=== PATIENT | female | born 1940 | race Caucasian/White ===

== ENCOUNTER 2016-06-20 22:22 | Inpatient (IN) | payer MEDICARE, BC ==
[2016-06-20] MEDS ORDERED: ONDANSETRON HCL INJ/PF 4 MG/2 ML SDV IV ONE (23:46)
[2016-06-20] MEDS ORDERED: NORMAL SALINE 500 ML IV ONE (23:47)
[2016-06-21 00:50] LABS: HEMATOCRIT 33.4 % (36.0-47.0); HEMOGLOBIN 10.5 g/dL (12.0-15.5); HGB HCT DIFFERENCE -1.9; MEAN CORPUSCULAR HEMOGLOBIN 21.5 pg (27.0-33.4); MEAN CORPUSCULAR HGB CONC 31.5 g/dL (32.0-36.0); MEAN CORPUSCULAR VOLUME 68 fl (80-97); RED BLOOD COUNT 4.88 10^6/uL (3.72-5.28); WHITE BLOOD COUNT 6.2 10^3/uL (4.0-10.5)
[2016-06-21 01:05] LABS: ALANINE AMINOTRANSFERASE 99 U/L (9-52); ALBUMIN 4.2 g/dL (3.5-5.0); ALKALINE PHOSPHATASE 86 U/L (38-126); ASPARTATE AMINO TRANSFERASE 194 U/L (14-36); BILIRUBIN,TOTAL 2.6 mg/dL (0.2-1.3); BLOOD UREA NITROGEN 21 mg/dL (7-20); CALCIUM 9.6 mg/dL (8.4-10.2); CARBON DIOXIDE 27 mmol/L (22-30); CHLORIDE 74 mmol/L (98-107); CREATININE RESULT 1.21 mg/dL (0.52-1.25); GLUCOSE 102 mg/dL (75-110); LIPASE 1121.6 U/L (23-300); POTASSIUM 4.1 mmol/L (3.6-5.0); TOTAL PROTEIN 6.3 g/dL (6.3-8.2)
[2016-06-21 01:07] LABS: ANION GAP 12 (5-19)
[2016-06-21 01:10] LABS: SODIUM 112.7 mmol/L (137-145)
[2016-06-21 01:11] LABS: BASOPHILS % (MANUAL) 0 % (0-2); EOSINOPHILS % (MANUAL) 4 % (0-6); LYMPHOCYTES % (MANUAL) 9 % (13-45); TOTAL CELLS COUNTED 100
[2016-06-21 01:14] LABS: ANISOCYTOSIS 2+; MICROCYTOSIS 2+; OVALOCYTES 1+; POLYCHROMASIA SLIGHT; TARGET CELLS 1+; TOXIC GRANULATION SLIGHT
[2016-06-21 01:15] LABS: HYPOCHROMASIA 2+
[2016-06-21 01:23] LABS: APPEARANCE,URINE CLEAR; BILIRUBIN,URINE NEGATIVE (NEGATIVE); GLUCOSE, URINE NEGATIVE (NEGATIVE); KETONES,URINE TRACE mg/dL (NEGATIVE); LEUKOCYTE ESTERASE,URINE LARGE (NEGATIVE); NITRITE,URINE NEGATIVE (NEGATIVE); PROTEIN,URINE 30 mg/dL (NEGATIVE); URINE SPECIFIC GRAVITY 1.009; UROBILINOGEN,URINE NEGATIVE mg/dL (<2.0)
[2016-06-21 01:52] LABS: URINE CREATININE 54.1 mg/dL (15-278)
[2016-06-21] MEDS ORDERED: NORMAL SALINE 1000 ML 1,000 ML IV ONE (02:35)
--- NOTE | 2016-06-21 02:38 | ER Document Report ---
ED General - General Chief Complaint: Nausea/Vomiting Stated Complaint: VOMITING Notes: Patient is 76-year-old female presents with complaints of feeling weak for almost 2 weeks. She is also developed some nausea and vomiting today. No abdominal discomfort. No fevers. Family says that she has been intimately confused as well. She did have hyponatremia back in January and presents with similar symptoms. Family says that she is on accommodation blood pressure medication as well as a medication for her history of gastric tumors. She is on no other chemotherapy. She has a history of cholecystectomy. She does not drink alcohol. No other complaints at this time. TRAVEL OUTSIDE OF THE [place] IN LAST 30 DAYS: No - Related Data Allergies/Adverse Reactions: Sulfa (Sulfonamide Antibiotics) Allergy (Verified 07/19/15 21:45) Past Medical History - Social History Smoking Status: Current Every Day Smoker Frequency of alcohol use: None Drug Abuse: None Family History: Reviewed & Not Pertinent Patient has suicidal ideation: No Patient has homicidal ideation: No - Past Medical History Cardiac Medical History: Reports: Hx Hypertension Pulmonary Medical History: Reports: Hx COPD Neurological Medical History: Reports: Hx Cerebrovascular Accident. Denies: Hx Seizures Renal/ Medical History: Denies: Hx Peritoneal Dialysis Musculoskeltal Medical History: Reports Hx Arthritis Psychiatric Medical History: Reports: Hx Depression Past Surgical History: Reports: Hx Abdominal Surgery, Hx Cholecystectomy, Hx Hysterectomy - Immunizations Immunizations up to date: Yes Hx Diphtheria, Pertussis, Tetanus Vaccination: Yes Hx Pneumococcal Vaccination: 03/20/14 Review of Systems - Review of Systems Notes: My Normal Review Basic REVIEW OF SYSTEMS: CONSTITUTIONAL : Denies fever, chills, or sweats. Denies recent illness. CARDIOVASCULAR: Denies chest pain. RESPIRATORY: Denies cough, cold, or chest congestion. Denies shortness of breath, difficulty breathing, or wheezing. GASTROINTESTINAL: Denies abdominal pain. Denies nausea, vomiting, or diarrhea. Denies constipation. Last BM: GENITOURINARY: Denies difficulty urinating, painful urination, burning, frequency, or blood in urine. MUSCULOSKELETAL: Denies neck or back pain or joint pain or swelling. SKIN: Denies rash or skin lesions. NEUROLOGICAL: Intermittent confusion. Denies headache. Denies weakness or paralysis or loss of use of either side. Denies problems with gait or speech. Denies sensory or motor loss. ALL OTHER SYSTEMS REVIEWED AND NEGATIVE. Physical Exam - Vital signs Vitals: Temp Pulse BP Pulse Ox 97.8 F 74 161/75 H 98 06/20/16 23:00 06/20/16 23:00 06/20/16 23:00 06/20/16 23:00 - Notes Notes: General Appearance: Well nourished, alert but sleepy, cooperative, no acute distress, no obvious discomfort. Well-appearing. Vitals: reviewed, See vital signs table. Head: no swelling or tenderness to the head Eyes: PERRL, EOMI, Conjuctiva clear Mouth: No decreasd moisture Neck: Supple, no neck tenderness, No thyromegaly Lungs: No wheezing, No rales, No rhonci, No accessory muscle use, good air exchange bilaterally. Heart: Normal rate, Regular rythm, No murmur, no rub Abdomen: Normal BS, soft, No rigidity, No abdominal tenderness, No guarding, no rebound, no abdominal masses, no organomegaly Extremities: strength 5/5 in all extremities, good pulses in all extremities, no swelling or tenderness in the extremities, no edema. Skin: warm, dry, appropriate color, no rash Neuro: speech clear, oriented x 3, normal affect, responds appropriately to questions. Course - Vital Signs Vital signs: Temp Pulse Resp BP Pulse Ox 97.8 F 74 14 161/75 H 98 06/20/16 23:00 06/20/16 23:00 06/20/16 23:01 06/20/16 23:00 06/20/16 23:00 - Laboratory Result Diagrams: 06/21/16 00:30 06/21/16 00:30 Laboratory results interpreted by me: 06/21/16 06/21/16 06/21/16 00:30 00:30 00:30 Hgb 10.5 L Hct 33.4 L MCV 68 L MCH 21.5 L MCHC 31.5 L RDW 19.0 H Lymphocytes % (Manual) 9 L Sodium 112.7 L* Chloride 74 L BUN 21 H Est GFR ( Amer) 53 L Est GFR (Non-Af Amer) 43 L Total Bilirubin 2.6 H AST 194 H ALT 99 H Ammonia < 8.7 L Lipase 1121.6 H Urine Protein Urine Ketones Urine Blood Ur Leukocyte Esterase 06/21/16 00:55 Hgb Hct MCV MCH MCHC RDW Lymphocytes % (Manual) Sodium Chloride BUN Est GFR ( Amer) Est GFR (Non-Af Amer) Total Bilirubin AST ALT Ammonia Lipase Urine Protein 30 H Urine Ketones TRACE H Urine Blood SMALL H Ur Leukocyte Esterase LARGE H - Transfer of Care Notes: 06/21/16 02:37 Patient's hyponatremia. Patient is on hydrochlorothiazide. This is most likely the culprit. She does have a little bit of an elevated lipase. She does not have a gallbladder. She does not drink alcohol on a regular basis. She has been nauseous and has been vomiting today. At this time I felt appropriate to admit her. I have attempted to contact Dr. Christian, patient's primary care physician. We have left a message and are awaiting his return call. Patient is currently on oral fluid restriction. 06/21/16 03:03 I did speak with Dr. Christian who agrees to admit the patient. Discharge - Discharge Clinical Impression: Hyponatremia, Elevated lipase Condition: Stable Disposition: ADMITTED INPATIENT Admitting Provider: Anahi [facility] Admitted: [facility]
[2016-06-21] MEDS ORDERED: NORMAL SALINE 1000 ML 1,000 ML IV PRN (03:12)
[2016-06-21 04:08] LABS: PROTHROMBIN TIME 13.9 SEC (11.4-15.4)
[2016-06-21 04:09] LABS: MAGNESIUM 1.6 mg/dL (1.6-2.3); PARTIAL THROMBOPLASTIN TIME 30.7 SEC (23.5-35.8); PHOSPHORUS 3.4 mg/dL (2.5-4.5)
[2016-06-21 04:23] LABS: CREATINE KINASE MB 8.15 ng/mL (<4.55); TROPONIN I 0.026 ng/mL
[2016-06-21 04:41] LABS: THYROID STIMULATING HORMONE 0.89 uIU/mL (0.47-4.68)
[2016-06-21] MEDS: ENALAPRILAT DIHYDRATE INJ/PF 1.25 MG/1 ML SDV IV SCH ×4 (07:38→23:44)
[2016-06-21] MEDS: ENOXAPARIN SODIUM INJ 40 MG/0.4 ML DISP.SYRIN SUBCUT SCH (07:57)
[2016-06-21] MEDS ORDERED: INFLUENZA ADLT QUAD (36MOS+) 2016-17 VAC 0.5 ML SYR IM PRN (08:05)
[2016-06-21 10:23] LABS: CREATINE KINASE MB 6.02 ng/mL (<4.55); TROPONIN I 0.031 ng/mL
[2016-06-21 16:15] LABS: CREATINE KINASE MB 4.43 ng/mL (<4.55); TROPONIN I 0.026 ng/mL
--- NOTE | 2016-06-21 20:12 | PDOC H&P ---
History of Present Illness Admission Date/PCP: 06/21/16 03:13 WILIAN REID, History of Present Illness: SAHRA GOMEZ is a 76 year old female, she has history of gastrointestinal stromal tumor, malignant, she came to the emergency room because of two-week history of weakness and she had episode of vomiting and nausea today the emergency room she was evaluated, she was found to have a serum sodium of 112.7 , also found was elevated serum lipase 1121.6. The serum osmolality is 240., The urine osmolality 319. She was also very confused, there is no history of diarrhea or volume loss Past Medical History Cardiac Medical History: Reports: Hypertension Pulmonary Medical History: Reports: Chronic Obstructive Pulmonary Disease (COPD) Neurological Medical History: Denies: Seizures Malignancy Medical History: Reports: Other - Gastrointestinal stromal tumor Musculoskeltal Medical History: Reports: Arthritis Psychiatric Medical History: Reports: Depression Hematology: Reports: Anemia Past Surgical History Past Surgical History: Reports: Cholecystectomy, Hysterectomy Social History Smoking Status: Former Smoker Last Time Smoked: quit last week Frequency of Alcohol Use: None Hx Recreational Drug Use: No Drugs: None Hx Prescription Drug Abuse: No Family History Family History: Reviewed & Not Pertinent Parental Family History Reviewed: Yes Children Family History Reviewed: Yes Sibling(s) Family History Reviewed.: Yes Medication/Allergy Home Medications: Olmesartan/Hydrochlorothiazide [Benicar Hct 40-25 mg Tablet] 1 tab PO DAILY 11/16 Metoprolol Succinate [Toprol Xl] 100 mg PO DAILY 04/03/15 Simethicone [Mylicon 80 mg Chewable Tablet] 80 mg PO Q6HP PRN #120 tab.chew Zolpidem Tartrate 5 mg PO QHS 05/01/15 Imatinib Mesylate [Gleevec] 200 mg PO MOWEFR 01/22/16 Olmesartan/Hydrochlorothiazide [Benicar Hct 40-25 mg Tablet] 1 tab PO DAILY Multivit with Calcium,Iron,Min [Multiple Vitamins For Women] 1 each PO DAILY Allergies/Adverse Reactions: Sulfa (Sulfonamide Antibiotics) Allergy (Verified 07/19/15 21:45) Review of Systems Eyes: ABSENT: visual disturbances Ears: ABSENT: hearing changes Cardiovascular: ABSENT: chest pain, dyspnea on exertion, edema, orthropnea, palpitations Respiratory: ABSENT: cough, hemoptysis Gastrointestinal: PRESENT: vomiting Genitourinary: ABSENT: dysuria, hematuria Musculoskeletal: ABSENT: joint swelling Integumentary: ABSENT: rash, wounds Neurological: PRESENT: confusion, memory loss Psychiatric: ABSENT: anxiety, depression, homidical ideation, suicidal ideation Endocrine: ABSENT: cold intolerance, heat intolerance, menstrual abnormalities, polydipsia, polyuria Hematologic/Lymphatic: ABSENT: easy bleeding, easy bruising, lymphadenopathy Physical Exam Vital Signs: Temp Pulse Resp BP Pulse Ox 98.2 F 65 18 122/61 97 06/21/16 15:12 06/21/16 15:12 06/21/16 15:12 06/21/16 15:12 06/21/16 15:12 Intake & Output 06/20/16 06/21/16 06/22/16 06:59 06:59 06:59 Intake Total 909 330 Output Total 1800 Balance 909 -1470 Weight 62.4 kg General appearance: PRESENT: no acute distress, well-developed, well-nourished Head exam: PRESENT: atraumatic, normocephalic Eye exam: PRESENT: conjunctiva pink, EOMI, PERRLA. ABSENT: scleral icterus Mouth exam: PRESENT: moist Neck exam: PRESENT: full ROM Cardiovascular exam: PRESENT: RRR, +S1, +S2 Pulses: PRESENT: normal dorsalis pedis pul, +2 pedal pulses bilateral Vascular exam: PRESENT: normal capillary refill GI/Abdominal exam: PRESENT: normal bowel sounds, soft Rectal exam: PRESENT: deferred Neurological exam: PRESENT: alert, awake, oriented to person, oriented to place , oriented to time, oriented to situation, CN II-XII grossly intact. ABSENT: motor sensory deficit Psychiatric exam: PRESENT: appropriate affect, normal mood Skin exam: PRESENT: dry, intact, warm Results Laboratory Results: 06/21/16 06/21/16 06/21/16 03:41 03:41 03:41 Phosphorus 3.4 Magnesium 1.6 Ammonia < 8.7 L TSH 0.89 Free T4 1.76 06/21/16 06/21/16 06/21/16 03:41 09:40 15:03 CK-MB (CK-2) 8.15 H 6.02 H 4.43 Troponin I 0.026 0.031 0.026 Impressions: KUB X-Ray 06/21/16 00:00 IMPRESSION: No acute findings. Indeterminate 2.2 cm hyperdensity of the left lower abdominal quadrant. 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 Is this a current diagnosis for this admission?: YesPlan: She has SIADH, the combination of Normal extracellular volume, urine osmolality of 100 suggest SIDH associated with severe hyponatremia, she be slowly replace (2) Metabolic encephalopathy Is this a current diagnosis for this admission?: YesPlan: When she had arrived in the emergency room she was confused but when I saw her she was alert, oriented to time, place and person (3) Hypertension Qualifiers: Hypertension type: essential hypertension Qualified Code(s): I10 - Essential (primary) hypertension Is this a current diagnosis for this admission?: YesPlan: Because she is vomiting. She'll be treated with IV Vasotec on a when necessary basis (4) Gastrointestinal stromal tumor (GIST) Is this a current diagnosis for this admission?: Yes (5) COPD (chronic obstructive pulmonary disease) Qualifiers: COPD type: unspecified COPD Qualified Code(s): J44.9 - Chronic obstructive pulmonary disease, unspecified Is this a current diagnosis for this admission?: Yes (6) Elevated lipase Is this a current diagnosis for this admission?: YesPlan: The elevated lipase does not represent acute pancreatitis she has no abdominal pain, the elevated lipase is probably related to gastrointestinal stromal tumor.
[2016-06-21 21:19] LABS: BLOOD UREA NITROGEN 22 mg/dL (7-20); CALCIUM 8.7 mg/dL (8.4-10.2); CARBON DIOXIDE 27 mmol/L (22-30); CHLORIDE 85 mmol/L (98-107); CREATININE RESULT 1.06 mg/dL (0.52-1.25); GLUCOSE 84 mg/dL (75-110); POTASSIUM 3.6 mmol/L (3.6-5.0)
[2016-06-21 21:28] LABS: SODIUM 120.3 mmol/L (137-145)
[2016-06-21 21:30] LABS: ANION GAP 8 (5-19)
[2016-06-22] MEDS: ENALAPRILAT DIHYDRATE INJ/PF 1.25 MG/1 ML SDV IV SCH ×4 (05:12→23:52)
[2016-06-22 05:38] LABS: HEMATOCRIT 28.2 % (36.0-47.0); HEMOGLOBIN 8.9 g/dL (12.0-15.5); HGB HCT DIFFERENCE -1.5; MEAN CORPUSCULAR HEMOGLOBIN 21.7 pg (27.0-33.4); MEAN CORPUSCULAR HGB CONC 31.7 g/dL (32.0-36.0); MEAN CORPUSCULAR VOLUME 69 fl (80-97); RED BLOOD COUNT 4.12 10^6/uL (3.72-5.28); WHITE BLOOD COUNT 5.5 10^3/uL (4.0-10.5)
[2016-06-22 05:59] LABS: ALANINE AMINOTRANSFERASE 75 U/L (9-52); ALBUMIN 3.3 g/dL (3.5-5.0); ALKALINE PHOSPHATASE 63 U/L (38-126); ANION GAP 9 (5-19); ASPARTATE AMINO TRANSFERASE 101 U/L (14-36); BILIRUBIN,TOTAL 1.5 mg/dL (0.2-1.3); BLOOD UREA NITROGEN 21 mg/dL (7-20); CALCIUM 8.8 mg/dL (8.4-10.2); CARBON DIOXIDE 24 mmol/L (22-30); CHLORIDE 89 mmol/L (98-107); CREATININE RESULT 0.94 mg/dL (0.52-1.25); GLUCOSE 65 mg/dL (75-110); LIPASE 677.2 U/L (23-300); POTASSIUM 3.7 mmol/L (3.6-5.0); SODIUM 121.8 mmol/L (137-145); TOTAL PROTEIN 4.9 g/dL (6.3-8.2)
[2016-06-22 06:14] LABS: BASOPHILS % (MANUAL) 2 % (0-2); EOSINOPHILS % (MANUAL) 3 % (0-6); LYMPHOCYTES % (MANUAL) 35 % (13-45); TOTAL CELLS COUNTED 100
[2016-06-22 06:17] LABS: ANISOCYTOSIS 2+; HYPOCHROMASIA SLIGHT; MICROCYTOSIS 2+; OVALOCYTES SLIGHT; POIKILOCYTOSIS 1+; TARGET CELLS 1+; TEAR DROP CELLS 1+
[2016-06-22] MEDS: ENOXAPARIN SODIUM INJ 40 MG/0.4 ML DISP.SYRIN SUBCUT SCH (09:12)
--- NOTE | 2016-06-22 14:59 | PDOC PROGRESS REPORT ---
Subjective Progress Note for:: 06/22/16 Subjective:: Patient was admitted yesterday for treatment of severe hyponatremia due to SIADH. She was seen by the bedside, she is alert and oriented Physical Exam Vital Signs: Temp Pulse Resp BP Pulse Ox 98.1 F 65 16 134/52 H 98 06/22/16 07:33 06/22/16 07:33 06/22/16 07:33 06/22/16 07:33 06/22/16 07:33 Intake & Output 06/21/16 06/22/16 06/23/16 06:59 06:59 06:59 Intake Total 909 1025 Output Total 2675 Balance 909 -1650 Weight 62.4 kg 63.9 kg General appearance: PRESENT: no acute distress, well-developed, well-nourished Head exam: PRESENT: atraumatic, normocephalic Eye exam: PRESENT: conjunctiva pink, EOMI, PERRLA Ear exam: PRESENT: normal external ear exam Mouth exam: PRESENT: moist, tongue midline Neck exam: PRESENT: full ROM Cardiovascular exam: PRESENT: RRR, +S1, +S2 GI/Abdominal exam: PRESENT: normal bowel sounds, soft Rectal exam: PRESENT: deferred Neurological exam: PRESENT: alert, awake, oriented to person, oriented to place , oriented to time, oriented to situation, CN II-XII grossly intact Psychiatric exam: PRESENT: appropriate affect, normal mood Skin exam: PRESENT: dry, intact, warm Results Laboratory Results: 06/22/16 04:30 06/22/16 04:30 06/21/16 06/22/16 06/22/16 20:55 04:30 04:30 WBC 5.5 RBC 4.12 Hgb 8.9 L Hct 28.2 L MCV 69 L MCH 21.7 L MCHC 31.7 L RDW 19.0 H Plt Count 152 Seg Neutrophils % Not Reportable Lymphocytes % Not Reportable Monocytes % Not Reportable Eosinophils % Not Reportable Basophils % Not Reportable Absolute Neutrophils Not Reportable Absolute Lymphocytes Not Reportable Absolute Monocytes Not Reportable Absolute Eosinophils Not Reportable Absolute Basophils Not Reportable Sodium 120.3 L* 121.8 L Potassium 3.6 3.7 Chloride 85 L 89 L Carbon Dioxide 27 24 Anion Gap 8 9 BUN 22 H 21 H Creatinine 1.06 0.94 Est GFR ( Amer) > 60 > 60 Est GFR (Non-Af Amer) 51 L 58 L Glucose 84 65 L Calcium 8.7 8.8 Total Bilirubin 1.5 H AST 101 H ALT 75 H Alkaline Phosphatase 63 Total Protein 4.9 L Albumin 3.3 L Lipase 677.2 H 06/21/16 06/21/16 06/21/16 03:41 09:40 15:03 CK-MB (CK-2) 8.15 H 6.02 H 4.43 Troponin I 0.026 0.031 0.026 Impressions: KUB X-Ray 06/21/16 00:00 IMPRESSION: No acute findings. Indeterminate 2.2 cm hyperdensity of the left lower abdominal quadrant. 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 Is this a current diagnosis for this admission?: YesPlan: The serum sodium is 120, we will continue hydration until 125 serum sodium (2) Metabolic encephalopathy Is this a current diagnosis for this admission?: Yes (3) Hypertension Qualifiers: Hypertension type: essential hypertension Qualified Code(s): I10 - Essential (primary) hypertension Is this a current diagnosis for this admission?: Yes (4) Gastrointestinal stromal tumor (GIST) Is this a current diagnosis for this admission?: Yes (5) COPD (chronic obstructive pulmonary disease) Qualifiers: COPD type: unspecified COPD Qualified Code(s): J44.9 - Chronic obstructive pulmonary disease, unspecified Is this a current diagnosis for this admission?: Yes (6) Elevated lipase Is this a current diagnosis for this admission?: Yes
[2016-06-23 05:01] LABS: HEMATOCRIT 28.5 % (36.0-47.0); HGB HCT DIFFERENCE -1.5; MEAN CORPUSCULAR HEMOGLOBIN 21.4 pg (27.0-33.4); MEAN CORPUSCULAR HGB CONC 31.5 g/dL (32.0-36.0); MEAN CORPUSCULAR VOLUME 68 fl (80-97); RED BLOOD COUNT 4.18 10^6/uL (3.72-5.28); RED CELL DISTRIBUTION WIDTH 18.9 % (11.5-14.0); WHITE BLOOD COUNT 5.8 10^3/uL (4.0-10.5)
[2016-06-23] MEDS: ENALAPRILAT DIHYDRATE INJ/PF 1.25 MG/1 ML SDV IV SCH ×3 (05:05→17:32)
[2016-06-23 05:19] LABS: ALANINE AMINOTRANSFERASE 72 U/L (9-52); ALBUMIN 3.3 g/dL (3.5-5.0); ALKALINE PHOSPHATASE 78 U/L (38-126); ANION GAP 7 (5-19); ASPARTATE AMINO TRANSFERASE 87 U/L (14-36); BILIRUBIN,TOTAL 1.3 mg/dL (0.2-1.3); BLOOD UREA NITROGEN 28 mg/dL (7-20); CALCIUM 9.2 mg/dL (8.4-10.2); CARBON DIOXIDE 26 mmol/L (22-30); CHLORIDE 93 mmol/L (98-107); CREATININE RESULT 0.89 mg/dL (0.52-1.25); GLUCOSE 79 mg/dL (75-110); LIPASE 728.9 U/L (23-300); SODIUM 126.2 mmol/L (137-145); TOTAL PROTEIN 5.1 g/dL (6.3-8.2)
[2016-06-23 05:38] LABS: BASOPHILS % (MANUAL) 0 % (0-2); EOSINOPHILS % (MANUAL) 2 % (0-6); LYMPHOCYTES % (MANUAL) 19 % (13-45); TOTAL CELLS COUNTED 100
[2016-06-23 05:44] LABS: ANISOCYTOSIS 1+
[2016-06-23 05:45] LABS: ROULEAUX 1+
[2016-06-23 05:46] LABS: BURR CELLS SLIGHT; HYPOCHROMASIA 1+; MICROCYTOSIS 2+; POIKILOCYTOSIS 1+; TARGET CELLS 1+; TEAR DROP CELLS SLIGHT
[2016-06-23] MEDS: ENOXAPARIN SODIUM INJ 40 MG/0.4 ML DISP.SYRIN SUBCUT SCH (08:30)
--- NOTE | 2016-06-23 09:27 | Physician Advisory Note ---
Physician Advisor ProgressNote .: [facility] medical record for this patient. Physician Advisor Statement: Possible documentation opportunities if attending agrees: 1. ? - "Acute metabolic encephalopathy evidenced by " - or if you think pt was just tired/"under the weather"/feeling poorly but not actually encephalopathic, just state that, & you may document that encephalopathy was considered but ruled out. - Dx of encephalopathy is currently a target for denials. Auditors jump on cases where the only description is "pt is confused", saying THEY may be ' confused' by the chart's documentation but they aren't encephalopathic. This dx can be especially difficult to defend when exams state pt is "A&O x3" as well , without further abnormal findings. - When you believe pt is/has been encephalopathic, please document specific details that support this dx & show how pt's mental status or neuro findings were different from baseline - Less alert than usual? Lethargic? (+)LOC? Unable to answer ?s appropriately? Loss of memory or cognitive ability compared to baseline? [Especially important to document if pt has any underlying dementia.] Unable to concentrate? Personality changes? Unable to speak or swallow? Tremor? Muscle twitching? ... Thanks for your help with documentation accuracy/specificity improvement! CK
[2016-06-23 16:04] VITALS: BP 149/74
--- NOTE | 2016-06-23 18:19 | PDOC DISCHARGE SUMMARY ---
General - Admit/Disc Date/PCP Admission Date/Primary Care Provider: 06/21/16 03:13 WILIAN REID, Discharge Date: 06/23/16 - Discharge Diagnosis (1) Syndrome of inappropriate ADH (SIADH) secretion Is this a current diagnosis for this admission?: Yes (2) Hypertension Is this a current diagnosis for this admission?: Yes (3) Gastrointestinal stromal tumor (GIST) Is this a current diagnosis for this admission?: Yes (4) COPD (chronic obstructive pulmonary disease) Is this a current diagnosis for this admission?: Yes (5) Elevated lipase Is this a current diagnosis for this admission?: Yes - Additional Information Home Medications: Olmesartan/Hydrochlorothiazide [Benicar Hct 40-25 mg Tablet] 1 tab PO DAILY 11/16 Metoprolol Succinate [Toprol Xl] 100 mg PO DAILY 04/03/15 Simethicone [Mylicon 80 mg Chewable Tablet] 80 mg PO Q6HP PRN #120 tab.chew Zolpidem Tartrate 5 mg PO QHS 05/01/15 Imatinib Mesylate [Gleevec] 200 mg PO MOWEFR 01/22/16 Olmesartan/Hydrochlorothiazide [Benicar Hct 40-25 mg Tablet] 1 tab PO DAILY Multivit with Calcium,Iron,Min [Multiple Vitamins For Women] 1 each PO DAILY Demeclocycline HCl [Declomycin 150 Mg Tablet] 150 mg PO QID #40 tablet 06/23/16 History of Present Illness History of Present Illness: SAHRA GOMEZ is a 76 year old female, she has history of gastrointestinal stromal tumor, malignant, she came to the emergency room because of two-week history of weakness and she had episode of vomiting and nausea today the emergency room she was evaluated, she was found to have a serum sodium of 112.7 , also found was elevated serum lipase 1121.6. The serum osmolality is 240., The urine osmolality 319. She was also very confused, there is no history of diarrhea or volume loss Hospital Course Hospital Course: Patient was admitted because of severe SIADH, she was symptomatic vomiting, and confusion. She was treated with normal saline and the serum sodium was slowly corrected, on admission, this serum sodium was 112.7 and the sodium today is 126. She was also found to have elevated liver enzymes and also lipase CT scan of the abdomen and pelvis was done with IV contrast and it was negative for any acute pathology. Physical Exam Vital Signs: Temp Pulse Resp BP Pulse Ox 97.8 F 67 19 149/74 H 100 06/23/16 15:37 06/23/16 15:37 06/23/16 15:37 06/23/16 15:37 06/23/16 15:37 Intake & Output 06/22/16 06/23/16 06/24/16 06:59 06:59 06:59 Intake Total 1025 1608 1247 Output Total 2675 2550 900 Balance -5430 -942 347 Weight 63.9 kg 64.4 kg General appearance: PRESENT: no acute distress Neck exam: PRESENT: full ROM Respiratory exam: PRESENT: clear to auscultation keturah Cardiovascular exam: PRESENT: RRR, +S1, +S2 GI/Abdominal exam: PRESENT: normal bowel sounds, soft Rectal exam: PRESENT: deferred Neurological exam: PRESENT: alert, awake, oriented to person, oriented to place , oriented to time, oriented to situation, CN II-XII grossly intact Psychiatric exam: PRESENT: appropriate affect, normal mood Skin exam: PRESENT: dry, intact, warm Results Laboratory Results: 06/23/16 03:50 06/23/16 03:50 06/23/16 06/23/16 03:50 03:50 WBC 5.8 RBC 4.18 Hgb 9.0 L Hct 28.5 L MCV 68 L MCH 21.4 L MCHC 31.5 L RDW 18.9 H Plt Count 145 L Seg Neutrophils % Not Reportable Lymphocytes % Not Reportable Monocytes % Not Reportable Eosinophils % Not Reportable Basophils % Not Reportable Absolute Neutrophils Not Reportable Absolute Lymphocytes Not Reportable Absolute Monocytes Not Reportable Absolute Eosinophils Not Reportable Absolute Basophils Not Reportable Sodium 126.2 L Potassium 4.0 Chloride 93 L Carbon Dioxide 26 Anion Gap 7 BUN 28 H Creatinine 0.89 Est GFR ( Amer) > 60 Est GFR (Non-Af Amer) > 60 Glucose 79 Calcium 9.2 Total Bilirubin 1.3 AST 87 H ALT 72 H Alkaline Phosphatase 78 Total Protein 5.1 L Albumin 3.3 L Lipase 728.9 H 06/21/16 06/21/16 06/21/16 03:41 09:40 15:03 CK-MB (CK-2) 8.15 H 6.02 H 4.43 Troponin I 0.026 0.031 0.026 Impressions: KUB X-Ray 06/21/16 00:00 IMPRESSION: No acute findings. Indeterminate 2.2 cm hyperdensity of the left lower abdominal quadrant. Abdomen/Pelvis CT 06/22/16 00:00 IMPRESSION: Similar mesenteric masses. No acute inflammatory changes. No fluid collection.
== END 2016-06-23 18:47 | disposition home or self-care (01) | DRG 643 ==
LOC: ER 22:22 → EH 06-21 03:13 → UNDOADMIN 06-21 03:17 → 3N 06-21 05:38
PROVIDERS: ADMIT Internal Medicine; ATTEND Internal Medicine
PROC: 3E0234Z Introduction of Serum, Toxoid and Vaccine into Muscle, Percutaneous Approach (ICD-10-PCS; principal; 2016-06-23)
DX: E22.2 Syndrome of inappropriate secretion of antidiuretic hormone (principal); G93.41 Metabolic encephalopathy; C49.A0 Gastrointestinal stromal tumor, unspecified site; I10 Essential (primary) hypertension; M19.90 Unspecified osteoarthritis, unspecified site; F32.9 Major depressive disorder, single episode, unspecified; F17.210 Nicotine dependence, cigarettes, uncomplicated; J44.9 Chronic obstructive pulmonary disease, unspecified; D64.9 Anemia, unspecified; Z90.710 Acquired absence of both cervix and uterus; Z88.2 Allergy status to sulfonamides; Z86.73 Personal history of transient ischemic attack (TIA), and cerebral infarction without residual deficits; Z79.899 Other long term (current) drug therapy; Z23 Encounter for immunization
CPT/HCPCS: 36415; 74000; 74177; 80048; 80053; 80076; 81001; 82140; 82553; 82570; 83036; 83690; 83735; 83930; 83935; 84100; 84300; 84439; 84443; 84484; 85025; 85610; 85730; 90686; 96361; 96374; 99285; J1650; J2405; J7030; J7040

== ENCOUNTER → 2016-07-28 | Outpatient (CLI) | payer MEDICARE, BC ==
[2016-07-28 15:22] LABS: ALANINE AMINOTRANSFERASE 31 U/L (9-52); ALBUMIN 3.5 g/dL (3.5-5.0); ALKALINE PHOSPHATASE 74 U/L (38-126); ANION GAP 7 (5-19); ASPARTATE AMINO TRANSFERASE 27 U/L (14-36); BILIRUBIN,TOTAL 1.3 mg/dL (0.2-1.3); BLOOD UREA NITROGEN 16 mg/dL (7-20); CARBON DIOXIDE 25 mmol/L (22-30); CHLORIDE 109 mmol/L (98-107); CREATININE RESULT 1.01 mg/dL (0.52-1.25); GLUCOSE 79 mg/dL (75-110); POTASSIUM 4.4 mmol/L (3.6-5.0); TOTAL PROTEIN 5.4 g/dL (6.3-8.2)
[2016-07-28 15:33] LABS: CALCIUM 9.6 mg/dL (8.4-10.2)
[2016-07-28 15:51] LABS: HEMOGLOBIN 9.2 g/dL (12.0-15.5); HGB HCT DIFFERENCE -1.4; MEAN CORPUSCULAR HEMOGLOBIN 22.7 pg (27.0-33.4); MEAN CORPUSCULAR HGB CONC 31.7 g/dL (32.0-36.0); MEAN CORPUSCULAR VOLUME 71 fl (80-97); RED BLOOD COUNT 4.06 10^6/uL (3.72-5.28); RED CELL DISTRIBUTION WIDTH 21.9 % (11.5-14.0); WHITE BLOOD COUNT 5.2 10^3/uL (4.0-10.5)
[2016-07-28 16:14] LABS: BASOPHILS % (MANUAL) 0 % (0-2); EOSINOPHILS % (MANUAL) 5 % (0-6); LYMPHOCYTES % (MANUAL) 26 % (13-45); TOTAL CELLS COUNTED 100
[2016-07-28 16:20] LABS: ANISOCYTOSIS 3+; BURR CELLS SLIGHT; MICROCYTOSIS 1+; OVALOCYTES 1+; POIKILOCYTOSIS 2+; POLYCHROMASIA SLIGHT; SCHISTOCYTES SLIGHT; TEAR DROP CELLS SLIGHT
[2016-07-28 16:25] LABS: TARGET CELLS 2+
== END ==
LOC: OD 13:49
PROVIDERS: ATTEND Internal Medicine
DX: E22.2 Syndrome of inappropriate secretion of antidiuretic hormone (principal)
CPT/HCPCS: 36415; 80053; 85025

== ENCOUNTER → 2016-09-12 | Outpatient (CLI) | payer MEDICARE, BC | LOC: WI 09:24 | PROVIDERS: ATTEND Internal Medicine Medical Oncology | DX: Z12.31 Encounter for screening mammogram for malignant neoplasm of breast (principal) | CPT/HCPCS: 77063; G0202; 77067 ==

== ENCOUNTER 2017-07-13 13:02 | Inpatient (IN) | payer MEDICARE, BC ==
[2017-07-13 16:15] LABS: ABSOLUTE BASOPHILS # (AUTO) 0.1 10^3/uL (0.0-0.2); ABSOLUTE EOSINOPHILS # (AUTO) 0.1 10^3/uL (0.0-0.6); ABSOLUTE LYMPHOCYTES (AUTO) 1.8 10^3/uL (0.5-4.7); ABSOLUTE MONOCYTES (AUTO) 0.6 10^3/uL (0.1-1.4); ABSOLUTE NEUT (AUTO) 3.8 10^3/uL (1.7-8.2); EOSINOPHILS % (AUTO) 1.4 % (0-6); HEMATOCRIT 35.1 % (36.0-47.0); HEMOGLOBIN 11.2 g/dL (12.0-15.5); LYMPHOCYTES % (AUTO) 28.8 % (13-45); MEAN CORPUSCULAR HEMOGLOBIN 21.5 pg (27.0-33.4); MEAN CORPUSCULAR VOLUME 67 fl (80-97); MONOCYTES % (AUTO) 8.8 % (3-13); PLATELET COUNT 191 10^3/uL (150-450); RED BLOOD COUNT 5.22 10^6/uL (3.72-5.28); RED CELL DISTRIBUTION WIDTH 18.4 % (11.5-14.0); TOTAL CELLS COUNTED % (AUTO) 100 %; WHITE BLOOD COUNT 6.4 10^3/uL (4.0-10.5)
[2017-07-13 16:31] LABS: ALANINE AMINOTRANSFERASE 91 U/L (9-52); ALBUMIN 5.1 g/dL (3.5-5.0); ALKALINE PHOSPHATASE 78 U/L (38-126); ANION GAP 12 (5-19); ASPARTATE AMINO TRANSFERASE 122 U/L (14-36); BILIRUBIN,DIRECT 0.5 mg/dL (0.0-0.4); BILIRUBIN,TOTAL 1.8 mg/dL (0.2-1.3); BLOOD UREA NITROGEN 17 mg/dL (7-20); CALCIUM 10.7 mg/dL (8.4-10.2); CARBON DIOXIDE 28 mmol/L (22-30); CHLORIDE 85 mmol/L (98-107); GLUCOSE 89 mg/dL (75-110); SODIUM 124.9 mmol/L (137-145); TOTAL PROTEIN 7.1 g/dL (6.3-8.2)
[2017-07-13 16:47] LABS: FREE T4 (FREE THYROXINE) 1.71 ng/dL (0.78-2.19)
[2017-07-13] MEDS: NORMAL SALINE 1000 ML 1,000 ML IV PRN (16:59)
[2017-07-13 17:01] LABS: THYROID STIMULATING HORMONE 1.82 uIU/mL (0.47-4.68)
[2017-07-13 20:05] LABS: APPEARANCE,URINE CLEAR; BILIRUBIN,URINE NEGATIVE (NEGATIVE); COLOR,URINE YELLOW; GLUCOSE, URINE NEGATIVE (NEGATIVE); KETONES,URINE NEGATIVE (NEGATIVE); LEUKOCYTE ESTERASE,URINE LARGE (NEGATIVE); NITRITE,URINE NEGATIVE (NEGATIVE); PROTEIN,URINE 30 mg/dL (NEGATIVE); URINE SPECIFIC GRAVITY 1.006; UROBILINOGEN,URINE NEGATIVE mg/dL (<2.0)
[2017-07-13 20:21] LABS: OSMOLALITY,URINE 246 mOsm/kg (300-900)
[2017-07-13 20:25] LABS: URINE SODIUM 40 mmol/L (30-90)
[2017-07-13] MEDS ORDERED: CIPROFLOXACIN HCL 500 MG TABLET PO ONE (21:00)
[2017-07-14 09:44] LABS: ALANINE AMINOTRANSFERASE 66 U/L (9-52); ALKALINE PHOSPHATASE 65 U/L (38-126); ANION GAP 7 (5-19); ASPARTATE AMINO TRANSFERASE 76 U/L (14-36); BILIRUBIN,DIRECT 0.1 mg/dL (0.0-0.4); BILIRUBIN,TOTAL 1.4 mg/dL (0.2-1.3); BLOOD UREA NITROGEN 20 mg/dL (7-20); CALCIUM 9.5 mg/dL (8.4-10.2); CARBON DIOXIDE 28 mmol/L (22-30); CHLORIDE 90 mmol/L (98-107); GLUCOSE 87 mg/dL (75-110); POTASSIUM 4.1 mmol/L (3.6-5.0); SODIUM 125.3 mmol/L (137-145); TOTAL PROTEIN 5.6 g/dL (6.3-8.2)
[2017-07-14] MEDS: CIPROFLOXACIN HCL 500 MG TABLET PO SCH ×2 (10:41→22:31)
[2017-07-14] MEDS: NORMAL SALINE 1000 ML 1,000 ML IV PRN (13:45)
--- NOTE | 2017-07-14 21:14 | PDOC H&P ---
History of Present Illness Admission Date/PCP: 07/13/17 13:22 WILIAN REID MD History of Present Illness: SAHRA GOMEZ is a 77 year old female She has a history of syndrome of inappropriate ADH secretion, gastrointestinal stromal tumor, she recently had blood work in the office and she was found to have a low serum sodium, she was brought to the office by her daughter because of confusion, usually she gets confused when the sodium is quite low, the sodium in the office was 123 , because of the confusion she was admitted directly from the office to the hospital for evaluation and management. Past Medical History Cardiac Medical History: Reports: Hypertension Pulmonary Medical History: Reports: Chronic Obstructive Pulmonary Disease (COPD) Neurological Medical History: Denies: Seizures Malignancy Medical History: Reports: Other - Gastrointestinal stromal tumor Musculoskeltal Medical History: Reports: Arthritis Psychiatric Medical History: Reports: Depression Hematology: Reports: Anemia Past Surgical History Past Surgical History: Reports: Cholecystectomy, Hysterectomy Social History Smoking Status: Current Every Day Smoker Cigarettes Packs Per Day: 1 Frequency of Alcohol Use: None Hx Recreational Drug Use: No Drugs: None Hx Prescription Drug Abuse: No - Advance Directive Resuscitation Status: Full Code Family History Family History: Reviewed & Not Pertinent Parental Family History Reviewed: Yes Children Family History Reviewed: Yes Sibling(s) Family History Reviewed.: Yes Medication/Allergy Home Medications: Imatinib Mesylate [Gleevec] 100 mg PO MOWEFR@0800 07/13/17 Olmesartan/Hydrochlorothiazide [Olmesartan-Hctz 40-25 mg Tab] 1 tab PO DAILY 01/20 Allergies/Adverse Reactions: Sulfa (Sulfonamide Antibiotics) Allergy (Verified 07/19/15 21:45) Review of Systems Constitutional: ABSENT: chills, fever(s), headache(s), weight gain, weight loss Eyes: ABSENT: visual disturbances Ears: ABSENT: hearing changes Cardiovascular: ABSENT: chest pain, dyspnea on exertion, edema, orthropnea, palpitations Respiratory: ABSENT: cough, hemoptysis Gastrointestinal: ABSENT: abdominal pain, constipation, diarrhea, hematemesis, hematochezia, nausea, vomiting Genitourinary: PRESENT: dysuria Musculoskeletal: ABSENT: joint swelling Integumentary: ABSENT: rash, wounds Neurological: PRESENT: confusion Psychiatric: ABSENT: anxiety, depression, homidical ideation, suicidal ideation Endocrine: ABSENT: cold intolerance, heat intolerance, menstrual abnormalities, polydipsia, polyuria Hematologic/Lymphatic: ABSENT: easy bleeding, easy bruising, lymphadenopathy Physical Exam Vital Signs: Temp Pulse Resp BP Pulse Ox 98.7 F 68 18 149/64 H 100 07/14/17 17:09 07/14/17 17:09 07/14/17 17:09 07/14/17 17:09 07/14/17 17:09 Intake & Output 07/13/17 07/14/17 07/15/17 06:59 06:59 06:59 Intake Total 584 Balance 584 Weight 54.431 kg General appearance: PRESENT: no acute distress, well-developed, well-nourished Head exam: PRESENT: atraumatic, normocephalic Eye exam: PRESENT: conjunctiva pink, EOMI, PERRLA Ear exam: PRESENT: normal external ear exam Mouth exam: PRESENT: moist, tongue midline Neck exam: PRESENT: full ROM Respiratory exam: PRESENT: clear to auscultation keturah Cardiovascular exam: PRESENT: RRR Vascular exam: PRESENT: normal capillary refill GI/Abdominal exam: PRESENT: normal bowel sounds, soft Rectal exam: PRESENT: deferred Neurological exam: PRESENT: alert, altered. ABSENT: motor sensory deficit Psychiatric exam: PRESENT: appropriate affect, normal mood Skin exam: PRESENT: dry, intact, warm. ABSENT: cyanosis, rash Results Laboratory Results: 07/13/17 15:53 07/14/17 09:19 07/14/17 09:19 Sodium 125.3 L Potassium 4.1 Chloride 90 L Carbon Dioxide 28 Anion Gap 7 BUN 20 Creatinine 0.93 Est GFR ( Amer) > 60 Est GFR (Non-Af Amer) 59 L Glucose 87 Calcium 9.5 Total Bilirubin 1.4 H AST 76 H ALT 66 H Alkaline Phosphatase 65 Total Protein 5.6 L Albumin 4.0 Assessment & Plan - Diagnosis (1) Hyponatremia Is this a current diagnosis for this admission?: Yes Plan: She is admitted to be treated with low IV normal saline (2) GIST (gastrointestinal stroma tumor), malignant, colon Is this a current diagnosis for this admission?: Yes (3) Metabolic encephalopathy Is this a current diagnosis for this admission?: Yes (4) Syndrome of inappropriate ADH (SIADH) secretion Is this a current diagnosis for this admission?: Yes (5) Urinary tract infection Qualifiers: Urinary tract infection type: site unspecified Hematuria presence: without hematuria Qualified Code(s): N39.0 - Urinary tract infection, site not specified Is this a current diagnosis for this admission?: Yes
--- NOTE | 2017-07-14 21:16 | PDOC PROGRESS REPORT ---
Subjective Progress Note for:: 07/14/17 Subjective:: She was admitted for the management of hyponatremic encephalopathy, she is improving Reason For Visit: HYPONATREMIC ENCEPHALOPATHY, HYPONATREMIA Physical Exam Vital Signs: Temp Pulse Resp BP Pulse Ox 98.7 F 68 18 149/64 H 100 07/14/17 17:09 07/14/17 17:09 07/14/17 17:09 07/14/17 17:09 07/14/17 17:09 Intake & Output 07/13/17 07/14/17 07/15/17 06:59 06:59 06:59 Intake Total 584 Balance 584 Weight 54.431 kg General appearance: PRESENT: no acute distress Head exam: PRESENT: atraumatic, normocephalic Eye exam: PRESENT: conjunctiva pink, EOMI, PERRLA Ear exam: PRESENT: normal external ear exam Mouth exam: PRESENT: moist, tongue midline Neck exam: PRESENT: full ROM Respiratory exam: PRESENT: clear to auscultation keturah Cardiovascular exam: PRESENT: RRR, +S1, +S2 Pulses: PRESENT: normal dorsalis pedis pul, +2 pedal pulses bilateral Vascular exam: PRESENT: normal capillary refill GI/Abdominal exam: PRESENT: normal bowel sounds, soft Rectal exam: PRESENT: deferred Neurological exam: PRESENT: alert Skin exam: PRESENT: dry, intact, warm. ABSENT: cyanosis, rash Results Laboratory Results: 07/13/17 15:53 07/14/17 09:19 07/14/17 09:19 Sodium 125.3 L Potassium 4.1 Chloride 90 L Carbon Dioxide 28 Anion Gap 7 BUN 20 Creatinine 0.93 Est GFR ( Amer) > 60 Est GFR (Non-Af Amer) 59 L Glucose 87 Calcium 9.5 Total Bilirubin 1.4 H AST 76 H ALT 66 H Alkaline Phosphatase 65 Total Protein 5.6 L Albumin 4.0 Assessment & Plan - Diagnosis (1) Hyponatremia Is this a current diagnosis for this admission?: Yes (2) GIST (gastrointestinal stroma tumor), malignant, colon Is this a current diagnosis for this admission?: Yes (3) Metabolic encephalopathy Is this a current diagnosis for this admission?: Yes (4) Syndrome of inappropriate ADH (SIADH) secretion Is this a current diagnosis for this admission?: Yes (5) Urinary tract infection Qualifiers: Urinary tract infection type: site unspecified Hematuria presence: without hematuria Qualified Code(s): N39.0 - Urinary tract infection, site not specified Is this a current diagnosis for this admission?: Yes
[2017-07-15] MEDS: CIPROFLOXACIN HCL 500 MG TABLET PO SCH ×2 (10:49→21:06)
[2017-07-15 14:46] LABS: ABSOLUTE BASOPHILS # (AUTO) 0.2 10^3/uL (0.0-0.2); ABSOLUTE EOSINOPHILS # (AUTO) 0.1 10^3/uL (0.0-0.6); ABSOLUTE LYMPHOCYTES (AUTO) 0.6 10^3/uL (0.5-4.7); ABSOLUTE MONOCYTES (AUTO) 0.8 10^3/uL (0.1-1.4); ABSOLUTE NEUT (AUTO) 7.4 10^3/uL (1.7-8.2); BASOPHILS % (AUTO) 1.7 % (0-2); EOSINOPHILS % (AUTO) 0.6 % (0-6); HEMATOCRIT 32.8 % (36.0-47.0); HEMOGLOBIN 10.8 g/dL (12.0-15.5); LYMPHOCYTES % (AUTO) 6.7 % (13-45); MEAN CORPUSCULAR HEMOGLOBIN 21.9 pg (27.0-33.4); MEAN CORPUSCULAR HGB CONC 32.8 g/dL (32.0-36.0); MEAN CORPUSCULAR VOLUME 67 fl (80-97); MONOCYTES % (AUTO) 8.7 % (3-13); PLATELET COUNT 180 10^3/uL (150-450); RED BLOOD COUNT 4.91 10^6/uL (3.72-5.28); RED CELL DISTRIBUTION WIDTH 18.2 % (11.5-14.0); SEGMENTED NEUTROPHILS % (AUTO) 82.3 % (42-78); TOTAL CELLS COUNTED % (AUTO) 100 %
[2017-07-15 15:03] LABS: ALANINE AMINOTRANSFERASE 61 U/L (9-52); ALBUMIN 4.1 g/dL (3.5-5.0); ALKALINE PHOSPHATASE 76 U/L (38-126); ANION GAP 8 (5-19); ASPARTATE AMINO TRANSFERASE 57 U/L (14-36); BILIRUBIN,DIRECT 0.4 mg/dL (0.0-0.4); BILIRUBIN,TOTAL 1.3 mg/dL (0.2-1.3); BLOOD UREA NITROGEN 25 mg/dL (7-20); CALCIUM 10.5 mg/dL (8.4-10.2); CARBON DIOXIDE 29 mmol/L (22-30); CHLORIDE 94 mmol/L (98-107); GLUCOSE 136 mg/dL (75-110); POTASSIUM 3.6 mmol/L (3.6-5.0); SODIUM 131.2 mmol/L (137-145); TOTAL PROTEIN 6.1 g/dL (6.3-8.2)
[2017-07-15] MEDS ORDERED: LANSOPRAZOLE 30 MG TAB.RAP.DR PO SCH (18:00)
--- NOTE | 2017-07-15 18:39 | PDOC DISCHARGE SUMMARY ---
General - Admit/Disc Date/PCP Admission Date/Primary Care Provider: 07/13/17 13:22 WILIAN REID MD Discharge Date: 07/16/17 - Discharge Diagnosis (1) Hyponatremia Is this a current diagnosis for this admission?: Yes (2) GIST (gastrointestinal stroma tumor), malignant, colon Is this a current diagnosis for this admission?: Yes (3) Metabolic encephalopathy Is this a current diagnosis for this admission?: Yes (4) Syndrome of inappropriate ADH (SIADH) secretion Is this a current diagnosis for this admission?: Yes (5) Urinary tract infection Is this a current diagnosis for this admission?: Yes - Additional Information Resuscitation Status: Full Code Prescriptions: Ciprofloxacin HCl [Cipro 500 mg Tablet] 500 mg PO Q12 #6 tablet Home Medications: Imatinib Mesylate [Gleevec] 100 mg PO MOWEFR@0800 07/13/17 Olmesartan/Hydrochlorothiazide [Olmesartan-Hctz 40-25 mg Tab] 1 tab PO DAILY 01/20 Ciprofloxacin HCl [Cipro 500 mg Tablet] 500 mg PO Q12 #6 tablet 07/15/17 History of Present Illness History of Present Illness: SAHRA GOMEZ is a 77 year old female She has a history of syndrome of inappropriate ADH secretion, gastrointestinal stromal tumor, she recently had blood work in the office and she was found to have a low serum sodium, she was brought to the office by her daughter because of confusion, usually she gets confused when the sodium is quite low, the sodium in the office was 123 , because of the confusion she was admitted directly from the office to the hospital for evaluation and management. Hospital Course Hospital Course: She was admitted for the management of hyponatremic encephalopathy, she was treated with normal saline at low rate, she was also empirically treated with IV antibiotic Cipro for UTI no definitive pathogen was culture from the urine. She is less confused compared to when she was admitted Physical Exam Vital Signs: Temp Pulse Resp BP Pulse Ox 99.3 F 85 20 123/64 99 07/15/17 17:01 07/15/17 17:01 07/15/17 17:01 07/15/17 17:01 07/15/17 17:01 Intake & Output 07/14/17 07/15/17 07/16/17 06:59 06:59 06:59 Intake Total 944 696 Balance 944 696 Weight 63.8 kg General appearance: PRESENT: no acute distress, well-developed, well-nourished Head exam: PRESENT: atraumatic, normocephalic Eye exam: PRESENT: conjunctiva pink, EOMI, PERRLA. ABSENT: scleral icterus Ear exam: PRESENT: normal external ear exam Mouth exam: PRESENT: moist, tongue midline Neck exam: PRESENT: full ROM Respiratory exam: PRESENT: clear to auscultation keturah Cardiovascular exam: PRESENT: RRR, +S1, +S2 Pulses: PRESENT: normal dorsalis pedis pul, +2 pedal pulses bilateral Vascular exam: PRESENT: normal capillary refill GI/Abdominal exam: PRESENT: normal bowel sounds, soft Rectal exam: PRESENT: deferred Neurological exam: PRESENT: alert, awake, oriented to person, oriented to place , oriented to time, oriented to situation, CN II-XII grossly intact Psychiatric exam: PRESENT: appropriate affect, normal mood Skin exam: PRESENT: dry, intact, warm Results Laboratory Results: 07/15/17 14:33 07/15/17 14:33 07/15/17 07/15/17 14:33 14:33 WBC 9.0 RBC 4.91 Hgb 10.8 L Hct 32.8 L MCV 67 L MCH 21.9 L MCHC 32.8 RDW 18.2 H Plt Count 180 Seg Neutrophils % 82.3 H Lymphocytes % 6.7 L Monocytes % 8.7 Eosinophils % 0.6 Basophils % 1.7 Absolute Neutrophils 7.4 Absolute Lymphocytes 0.6 Absolute Monocytes 0.8 Absolute Eosinophils 0.1 Absolute Basophils 0.2 Sodium 131.2 L Potassium 3.6 Chloride 94 L Carbon Dioxide 29 Anion Gap 8 BUN 25 H Creatinine 1.17 Est GFR ( Amer) 55 L Est GFR (Non-Af Amer) 45 L Glucose 136 H Calcium 10.5 H Total Bilirubin 1.3 AST 57 H ALT 61 H Alkaline Phosphatase 76 Total Protein 6.1 L Albumin 4.1
[2017-07-16 08:17] VITALS: BP 143/73
[2017-07-16] MEDS: CIPROFLOXACIN HCL 500 MG TABLET PO SCH (09:18)
== END 2017-07-16 11:56 | disposition home or self-care (01) | DRG 643 ==
LOC: ER 13:02 → EH 13:22 → OBSVTOIN 13:22 → EH 16:31 → 3W 07-14 13:03
PROVIDERS: ADMIT Internal Medicine; ATTEND Internal Medicine
DX: E22.2 Syndrome of inappropriate secretion of antidiuretic hormone (principal); G93.41 Metabolic encephalopathy; N39.0 Urinary tract infection, site not specified; C49.A0 Gastrointestinal stromal tumor, unspecified site; I10 Essential (primary) hypertension; M19.90 Unspecified osteoarthritis, unspecified site; Z90.49 Acquired absence of other specified parts of digestive tract; Z90.710 Acquired absence of both cervix and uterus; F17.210 Nicotine dependence, cigarettes, uncomplicated; Z88.2 Allergy status to sulfonamides
CPT/HCPCS: 36415; 80048; 80053; 80076; 81001; 83930; 83935; 84300; 84439; 84443; 85025; 87086; 87088; 87186; G0378; J7030

== ENCOUNTER → 2017-08-07 | Outpatient (CLI) | payer MEDICARE, BC ==
--- NOTE | 2017-08-07 13:07 | RADIOLOGY REPORT (SQ) ---
EXAM DESCRIPTION: CT CHEST WITH COMPLETED DATE/TIME: 08/07/2017 10:38 am REASON FOR STUDY: PERSONAL HX OF MAL JERMAINE OF OTHER DIGESTIVE ORGANS/SOB Z85.09 PERSONAL HISTORY OF M ALIGNANT NEOPLASM OF DIGESTIVE O R06.02 SHORTNESS OF BREATH COMPARISON: 05/04/2016 and 11/23/2015. TECHNIQUE: CT scan of the chest performed using helical scanning technique with dynamic intravenous contrast injection. Images reviewed with lung, soft tissue and bone windows. Reconstructed coronal and sagittal MPR images reviewed. All images stored on PACS. All CT scanners at this facility use dose modulation, iterative reconstruction, and/or weight based d osing when appropriate to reduce radiation dose to as low as reasonably achievable (ALARA). [facility]: Dose Right [facility]: CareDose [facility]: Dose Right [facility]: Teradose 4D [facility]: [employer] CONTRAST TYPE AND DOSE: contrast/concentration: Isovue 370.00 mg/ml; Total Contrast Delivered: 66.0 ml; Total Saline Delivered: 65.0 ml RENAL FUNCTION: BUN 25 creatinine 1.17. RADIATION DOSE: . LIMITATIONS: None. FINDINGS: LUNGS AND PLEURA: No opacities, nodules, masses. No pneumothorax. No effusions. HILAR AND MEDIASTINAL STRUCTURES: No identified masses or abnormal nodes. HEART AND VASCULAR STRUCTURES: No aneurysm or dissection. No central pulmonary emboli. No pericardi al effusion. HARDWARE: None in the chest. UPPER ABDOMEN: See separate report of the CT of the abdomen. THYROID AND OTHER SOFT TISSUES: No masses. No adenopathy. BONES: No significant finding. OTHER: No other significant finding. IMPRESSION: NORMAL CT OF THE CHEST WITH IV CONTRAST. TECHNICAL DOCUMENTATION: JOB ID: [id number] Quality ID # [id number]: Final reports with documentation of one or more dose reduction techniques (e.g., Au tomated exposure control, adjustment of the mA and/or kV according to patient size, use of iterative reconstruction technique) 2010 [employer]- All Rights Reserved Reading location - IP/workstation name: [email or web address]
--- NOTE | 2017-08-07 13:23 | RADIOLOGY REPORT (SQ) ---
EXAM DESCRIPTION: CT ABDOMEN WITH IV ORAL CONT COMPLETED DATE/TIME: 08/07/2017 10:38 am REASON FOR STUDY: PERSONAL HX OF MAL JERMAINE OF OTHER DIGESTIVE ORGANS/SOB Z85.09 PERSONAL HISTORY OF M ALIGNANT NEOPLASM OF DIGESTIVE O R06.02 SHORTNESS OF BREATH COMPARISON: 06/22/2016 and 05/04/2016. TECHNIQUE: CT scan of the abdomen performed with intravenous and with oral contrast using helical sc anning technique with dynamic intravenous contrast injection. Images reviewed with lung, soft tissue, and bone windows. Reconstructed coronal and sagittal MPR images reviewed. Delayed images for evaluat ion of the urinary system also acquired and evaluated. All images stored on PACS. All CT scanners at this facility use dose modulation, iterative reconstruc tion, and/or weight based dosing when appropriate to reduce radiation dose to as low as reasonably ac hievable (ALARA). [facility]: Dose Right [facility]: CareDose [facility]: Dose Right [facility]: Teradose 4D [facility]: [employer] CONTRAST TYPE AND DOSE: 66 mL Isovue 370- low osmolar. RENAL FUNCTION: BUN 25 creatinine 1.17. RADIATION DOSE: CT Rad equipment meets quality standard of care and radiation dose reduction techniq ues were employed. CTDIvol: 4.4 - 4.5 mGy. DLP: 469 mGy-cm. . LIMITATIONS: None. FINDINGS: LOWER CHEST: No significant findings. No nodules or infiltrates. LIVER: Normal size. No masses. No dilated ducts. SPLEEN: Normal size. No focal lesions. PANCREAS: No masses. No significant calcifications. No adjacent inflammation or peripancreatic fluid collections. Pancreatic duct not dilated. GALLBLADDER: Surgically absent. ADRENAL GLANDS: No significant masses or asymmetry. RIGHT KIDNEY AND URETER: Cortical cysts. No solid masses. No significant calcifications. No hydr onephrosis or hydroureter. LEFT KIDNEY AND URETER: Cortical cysts. No solid masses. No significant calcifications. No hydro nephrosis or hydroureter. AORTA AND VESSELS: No aneurysm. No dissection. Renal arteries, SMA, celiac without stenosis. RETROPERITONEUM: No retroperitoneal adenopathy, hemorrhage or masses. BOWEL AND PERITONEAL CAVITY: Multiple low-attenuation mesenteric masses. Direct comparison is slight ly limited due to variability in slice positioning. A few of these mesenteric masses appear to be sl ightly larger. Mass in the left abdomen on axial series 3, image 39 currently measures 2.2 cm with p rior measurement 1.6 cm. Mass in the anterior left abdomen on axial series 3, image 34 measures 1.3 cm with prior measurement 7 mm. Mass anterior to the iliac bifurcation measures 2 x 2.8 cm, not esteban rly demonstrated on the prior CT. Other mesenteric masses appear unchanged. APPENDIX: Not visualized. ABDOMINAL WALL: No masses. No hernias. BONES: No significant or acute findings. Degenerative changes in the spine. OTHER: No other significant finding. IMPRESSION: 1. MULTIPLE MESENTERIC MASSES. A FEW OF THESE APPEAR TO BE LARGER AND OTHERS ARE STABLE. 2. NO OTHER SIGNIFICANT FINDING IN THE ABDOMEN. INCIDENTAL CORTICAL CYSTS IN THE KIDNEYS. TECHNICAL DOCUMENTATION: JOB ID: [id number] Quality ID # 436: Final reports with documentation of one or more dose reduction techniques (e.g., Au tomated exposure control, adjustment of the mA and/or kV according to patient size, use of iterative reconstruction technique) 2010 [employer]- All Rights Reserved Reading location - IP/workstation name: [email or web address]
== END ==
LOC: RAD 10:28
PROVIDERS: ATTEND Internal Medicine Medical Oncology
DX: R06.02 Shortness of breath (principal); Z85.09 Personal history of malignant neoplasm of other digestive organs
CPT/HCPCS: 71260; 74160

== ENCOUNTER → 2017-08-11 | Outpatient (CLI) | payer MEDICARE, BC ==
--- NOTE | 2017-08-11 13:03 | RADIOLOGY REPORT (SQ) ---
EXAM DESCRIPTION: MRI HEAD COMBO COMPLETED DATE/TIME: 08/11/2017 12:53 pm REASON FOR STUDY: DISORIENTATION, UNSPECIFIED R41.0 DISORIENTATION, UNSPECIFIED COMPARISON: 04/10/2015 TECHNIQUE: Multiplanar imaging includes noncontrasted T1, T2, FLAIR, Diffusion with ADC map and post gadolinium contrast T1 sequences. Images stored on PACS. CONTRAST TYPE AND DOSE: 10 mL Multihance. RENAL FUNCTION: GFR 37 LIMITATIONS: None. FINDINGS: ANATOMY: No anomalies. Normal vascular flow voids. Pituitary fossa normal. CSF SPACES: Atrophy-induced prominence of CSF spaces and ventricles. 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 High-signal intensity lesions scattered throughout the white matter on FLAIR imaging with distribution suggesting chronic micro-vascular ischemic change . No evidence of hemorrhage, mass, extraaxial fluid collection or acute ischemic change. No enhancing lesions. POSTERIOR FOSSA: No signal alteration. No hemorrhage. No edema, masses, or mass effect. Internal irma tory canals, cerebello-pontine angles, mastoids normal. No enhancing lesions. ORBITS: No masses. Globes normal. PARANASAL SINUSES: No fluid levels. Mucosa normal. DIFFUSION: Normal. No evidence of recent infarct. OTHER: No other significant finding. IMPRESSION: ATROPHY AND CHRONIC MICRO-VASCULAR ISCHEMIC CHANGES. OTHERWISE UNREMARKABLE MRI OF THE B RAIN WITHOUT AND WITH INTRAVENOUS GADOLINIUM CONTRAST. EVIDENCE OF ACUTE STROKE: NO. TECHNICAL DOCUMENTATION: JOB ID: [id number] [employer]- All Rights Reserved Reading location - IP/workstation name: [facility]
== END ==
LOC: RAD 12:02
PROVIDERS: ATTEND Internal Medicine Medical Oncology
DX: R41.0 Disorientation, unspecified (principal); G31.9 Degenerative disease of nervous system, unspecified
CPT/HCPCS: 82565; 70553; A9577

== ENCOUNTER → 2017-10-16 | Outpatient (CLI) | payer MEDICARE, BC ==
--- NOTE | 2017-10-16 19:59 | RADIOLOGY REPORT (SQ) ---
EXAM DESCRIPTION: CT ABD/PELVIS WITH IV ORAL COMPLETED DATE/TIME: 10/16/2017 10:34 am REASON FOR STUDY: PERSONAL HX OF MAL JERMAINE OF OTHER DIGESTIVE ORGANS Z85.09 PERSONAL HISTORY OF ENRRIQUE CHAPMAN NEOPLASM OF DIGESTIVE O COMPARISON: Prior CT abdomen pelvis 08/07/2017, 06/22/2016, 05/04/2016 TECHNIQUE: CT scan of the abdomen and pelvis performed using helical scanning technique with dynamic intravenous contrast injection. Patient drank oral contrast. Images reviewed with lung, soft tissue , and bone windows. Reconstructed coronal and sagittal MPR images reviewed. Delayed images for evalua tion of the urinary system also acquired. All images stored on PACS. All CT scanners at this facility use dose modulation, iterative reconstruction, and/or weight based d osing when appropriate to reduce radiation dose to as low as reasonably achievable (ALARA). [facility]: Dose Right [facility]: CareDose [facility]: Dose Right [facility]: Teradose 4D [facility]: [employer] CONTRAST TYPE AND DOSE: 68 mL of IV Isovue 370- low osmolar. RENAL FUNCTION: Creatinine 1.3 RADIATION DOSE: 10 mGy. LIMITATIONS: None. FINDINGS: No ascites. Patient has multiple low-density soft tissue masses scattered throughout the abdominal and pelvic mes enteries. Accounting for differences in technique, these masses are similar in size density and numb er compared to 08/07/2017. LOWER CHEST: No significant findings. No nodules or infiltrates. LIVER: Normal size. No masses. No dilated ducts. SPLEEN: Normal size. No focal lesions. PANCREAS: No masses. No significant calcifications. No adjacent inflammation or peripancreatic fluid collections. Pancreatic duct not dilated. GALLBLADDER: No identified stones by CT criteria. No inflammatory changes to suggest cholecystitis. ADRENAL GLANDS: No significant masses or asymmetry. RIGHT KIDNEY AND URETER: No solid masses. 2 cm right midpole renal cortical cyst. No significant ca lcifications. No hydronephrosis or hydroureter. LEFT KIDNEY AND URETER: No solid masses. 2 cm and 1.5 cm left lower pole renal cortical cysts. No s ignificant calcifications. No hydronephrosis or hydroureter. AORTA AND VESSELS: No aneurysm. No dissection. About 50% stenosis celiac and SMA, greater than 50% s tenosis bilateral renal arteries. RETROPERITONEUM: No retroperitoneal adenopathy, hemorrhage or masses. BOWEL AND PERITONEAL CAVITY: No bowel obstruction. No ascites. Multiple mesenteric masses are stabl e. APPENDIX: Not visualized PELVIS: No mass. No free fluid. Normal bladder. Post hysterectomy ABDOMINAL WALL: No masses. No hernias. BONES: Diffuse degenerative changes lumbar spine OTHER: No other significant finding. IMPRESSION: Stable multiple low-density masses soft along the abdominal and pelvic mesenteries. TECHNICAL DOCUMENTATION: JOB ID: [id number] Quality ID # 436: Final reports with documentation of one or more dose reduction techniques (e.g., Au tomated exposure control, adjustment of the mA and/or kV according to patient size, use of iterative reconstruction technique) 2010 [employer]- All Rights Reserved Reading location - IP/workstation name: [email or web address]
== END ==
LOC: RAD 09:56
PROVIDERS: ATTEND Internal Medicine Medical Oncology
DX: Z85.09 Personal history of malignant neoplasm of other digestive organs (principal)
CPT/HCPCS: 74177; 82565

== ENCOUNTER → 2017-11-13 | Outpatient (CLI) | payer MEDICARE, BC ==
--- NOTE | 2017-11-16 19:04 | WOMENS IMAGING REPORT ---
EXAM DESCRIPTION: 3D SCREENING MAMMO BILAT COMPLETED DATE/TIME: 11/13/2017 11:55 am REASON FOR STUDY: ROUTINE SCREENING;Z12.31 Z12.31 ENCNTR SCREEN MAMMOGRAM FOR MALIGNANT NEOPLASM OF ERIK COMPARISON: 2014, 2016 TECHNIQUE: Standard craniocaudal and mediolateral oblique views of each breast recorded using digita l acquisition and breast tomosynthesis. LIMITATIONS: None. FINDINGS: No masses, calcifications or architectural distortion. No areas of suspicion. Read with the assistance of CAD. .[facility] - R2 Cenova Version 1.3 .[facility] - R2 Cenova Version 1.3 .[facility] - R2 Cenova Version 2.4 .[facility] - R2 Cenova Version 2.4 .[facility] - R2 Super[employer] Grinding Version 9.2 IMPRESSION: NORMAL MAMMOGRAM. BIRADS 1. BREAST DENSITY: b. There are scattered areas of fibroglandular density. BIRAD: 1 NEGATIVE RECOMMENDATION: ROUTINE SCREENING Please continue yearly bilateral screening tomosynthesis in November 2018 COMMENT: The patient has been notified of the results by letter per [place] requirements. Additional no tification policies are in place for contacting patient with suspicious or incomplete findings. Quality ID #[id number]: The [employer] recommends an annual screening mammogram for women aged 40 years or over. This facility utilizes a reminder system to ensure that all patients receive reminder letters, and/or direct phone calls for appointments. This includes reminders for routine scr eening mammograms, diagnostic mammograms, or other Breast Imaging Interventions when appropriate. Th is patient will be placed in the appropriate reminder system. The [employer] (ACR) has developed recommendations for screening MRI of the breast s in certain patient populations, to be used in conjunction with mammography. Breast MRI surveillanc e may be appropriate for women with more than 20% lifetime risk of developing breast cancer as deter mined by genetic testing, significant family history of the disease, or history of mantle radiation f or Hodgkins Disease. ACR Practice Guidelines 2008. DBT Technology DBT is a type of tomographic mammography. With conventional mammography, overlapping breast tissue ma y make lesions difficult to detect, even with good compression. DBT uses an x-ray tube that rotates a round the breast, taking images at different angles. These images are then combined to create thin sl ices of the breast that the radiologist can view as a 3D reconstruction. The [employer] unit can perform full-field digital mammograms (2D imaging); or DBT (3D imaging); or both, in a combination mode that quickly performs both the mammogram and the tomosynthesis scan while the breast is still compressed. PQRS 6045F: Fluoroscopic imaging is not utilized for breast tomosynthesis. TECHNICAL DOCUMENTATION: FINDING NUMBER: (1) ASSESSMENT: (1) JOB ID: [id number] [employer]- All Rights Reserved Reading location - IP/workstation name: [email or web address]
== END ==
LOC: WI 11:42
PROVIDERS: ATTEND Internal Medicine Medical Oncology
DX: Z12.31 Encounter for screening mammogram for malignant neoplasm of breast (principal)
CPT/HCPCS: 77063; 77067

== ENCOUNTER → 2018-01-23 | Outpatient (CLI) | payer MEDICARE, BC ==
--- NOTE | 2018-01-23 15:01 | RADIOLOGY REPORT (SQ) ---
EXAM DESCRIPTION: CT CHEST WITHOUT COMPLETED DATE/TIME: 01/23/2018 2:25 pm REASON FOR STUDY: COUGH Z87.891 PERSONAL HISTORY OF NICOTINE DEPENDENCE R05 COUGH COMPARISON: CT chest 11/23/2015, 05/04/2016, 08/07/2017 TECHNIQUE: CT scan performed of the chest without intravenous contrast. Images reviewed with lung, soft tissue and bone windows. Reconstructed coronal and sagittal MPR images reviewed. All images st ored on PACS. All CT scanners at this facility use dose modulation, iterative reconstruction, and/or weight based d osing when appropriate to reduce radiation dose to as low as reasonably achievable (ALARA). [facility]: Dose Right [facility]: CareDose [facility]: Dose Right [facility]: Teradose 4D [facility]: [employer] RADIATION DOSE: CT Rad equipment meets quality standard of care and radiation dose reduction techniq ues were employed. CTDIvol: 3.2 mGy. DLP: 117 mGy-cm. mGy. LIMITATIONS: No technical limitations. FINDINGS: LUNGS AND PLEURA: No masses, infiltrates, or pneumothorax. No pleural effusions or pleura l calcifications. HILAR AND MEDIASTINAL STRUCTURES: No identified masses or abnormal nodes. No obvious aneurysm. HEART AND VASCULAR STRUCTURES: No aneurysm. No pericardial effusion. Moderate coronary artery calci fication. Minimal aortic valve calcification UPPER ABDOMEN: Tiny hiatal hernia. Clips right upper quadrant post cholecystectomy. 2 cm cyst right mid-pole kidney THYROID AND OTHER SOFT TISSUES: No masses. No adenopathy. BONES: Minimal inferior endplate depression at T5, T6, T7, and T8, chronic. No overall loss of verte bral body height HARDWARE: None in the chest. OTHER: No other significant findings. IMPRESSION: No acute findings. No CT findings to explain history of cough. Coronary artery calcifications, calcified aortic valve, small hiatal hernia. Chronic appearing infer ior endplate central depressions at T5, T6, T7, and T8 TECHNICAL DOCUMENTATION: JOB ID: [id number] Quality ID # [id number]: Final reports with documentation of one or more dose reduction techniques (e.g., Au tomated exposure control, adjustment of the mA and/or kV according to patient size, use of iterative reconstruction technique) 2010 [employer]- All Rights Reserved Reading location - IP/workstation name: [facility]
== END ==
LOC: RAD 13:17
PROVIDERS: ATTEND Internal Medicine
DX: Z12.2 Encounter for screening for malignant neoplasm of respiratory organs (principal); Z87.891 Personal history of nicotine dependence; R05 Cough; K44.9 Diaphragmatic hernia without obstruction or gangrene
CPT/HCPCS: 71250

== ENCOUNTER 2018-02-28 13:54 | Emergency (ER) | payer MEDICARE, BC ==
[2018-02-28] MEDS ORDERED: NORMAL SALINE 500 ML IV ONE (14:17)
[2018-02-28] MEDS ORDERED: ONDANSETRON HCL INJ/PF 4 MG/2 ML SDV IV ONE (14:17)
--- NOTE | 2018-02-28 14:17 | ER Document Report ---
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 Patient states the diarrhea started yesterday. Daughter reports they were out in the yard doing yard work and her mother went inside which is unusual for her. She states when she checked on her she looked byrd, pale and began vomiting. Patient denies any abdominal pain. I have greeted and performed a rapid initial assessment of this patient. A comprehensive ED assessment and evaluation of the patient, analysis of test results and completion of medical decision making process we will be contacted by additional ED providers. PHYSICAL EXAMINATION: GENERAL: Well-appearing, well-nourished and in no acute distress. HEAD: Atraumatic, normocephalic. EYES: Pupils equal round extraocular movements intact, conjunctiva are normal. ENT: Nares patent NECK: Normal range of motion LUNGS: No respiratory distress Musculoskeletal: Normal range of motion NEUROLOGICAL: Normal speech, normal gait. PSYCH: Normal mood, normal affect. SKIN: Warm, Dry, normal turgor, no rashes or lesions noted. TRAVEL OUTSIDE OF THE [place] IN LAST 30 DAYS: No - HPI Onset: Just prior to arrival Onset/Duration: Sudden Quality of pain: No pain Associated Symptoms: Diarrhea, Dizzy/lightheaded, Nausea, Vomiting Exacerbated by: Denies Relieved by: Denies Similar symptoms previously: No Recently seen / treated by doctor: Yes - Related Data Smoking: Non-smoker Frequency of alcohol use: None Drug Abuse: None Allergies/Adverse Reactions: Sulfa (Sulfonamide Antibiotics) Allergy (Verified 02/28/18 13:54) Past Medical History - Social History Frequency of alcohol use: None Drug Abuse: None - Past Medical History Cardiac Medical History: Reports: Hx Hypertension Pulmonary Medical History: Reports: Hx COPD Neurological Medical History: Reports: Hx Cerebrovascular Accident. Denies: Hx Seizures Renal/ Medical History: Denies: Hx Peritoneal Dialysis Musculoskeltal Medical History: Reports Hx Arthritis Psychiatric Medical History: Reports: Hx Depression Past Surgical History: Reports: Hx Abdominal Surgery, Hx Cholecystectomy, Hx Hysterectomy - Immunizations Immunizations up to date: Yes Hx Diphtheria, Pertussis, Tetanus Vaccination: Yes History of Influenza Vaccine for 03/2017 - 08/2017 Season: Yes Influenza Administration Date for 03/2017 - 08/2017 Season: 03/05/17 Physical Exam - Vital signs Vitals: Temp Pulse Resp BP Pulse Ox 97.9 F 75 14 142/56 H 97 02/28/18 13:58 02/28/18 13:58 02/28/18 13:58 02/28/18 13:58 02/28/18 13:58 Course - Vital Signs Vital signs: Temp Pulse Resp BP Pulse Ox 97.9 F 75 14 142/56 H 97 02/28/18 13:58 02/28/18 13:58 02/28/18 13:58 02/28/18 13:58 02/28/18 13:58 Doctor's Discharge - Discharge Referrals: WILIAN REID MD [Primary Care Provider] - Follow up as needed
[2018-02-28 14:59] LABS: HEMATOCRIT 32.4 % (36.0-47.0); HEMOGLOBIN 10.4 g/dL (12.0-15.5); MEAN CORPUSCULAR HEMOGLOBIN 22.1 pg (27.0-33.4); MEAN CORPUSCULAR HGB CONC 32.2 g/dL (32.0-36.0); MEAN CORPUSCULAR VOLUME 69 fl (80-97); PLATELET COUNT 223 10^3/uL (150-450); RED BLOOD COUNT 4.72 10^6/uL (3.72-5.28); RED CELL DISTRIBUTION WIDTH 20.7 % (11.5-14.0); WHITE BLOOD COUNT 6.8 10^3/uL (4.0-10.5)
[2018-02-28 15:16] LABS: ABSOLUTE LYMPHOCYTES# (MANUAL) 1.2 10^3/uL (0.5-4.7); ABSOLUTE MONOCYTES # (MANUAL) 0.3 10^3/uL (0.1-1.4); ABSOLUTE NEUTROPHILS# (MANUAL) 5.1 10^3/uL (1.7-8.2); ALANINE AMINOTRANSFERASE 21 U/L (9-52); ALBUMIN 3.7 g/dL (3.5-5.0); ALKALINE PHOSPHATASE 66 U/L (38-126); ANION GAP 6 (5-19); ASPARTATE AMINO TRANSFERASE 24 U/L (14-36); BASOPHILS % (MANUAL) 1 % (0-2); BILIRUBIN,DIRECT 0.5 mg/dL (0.0-0.4); BILIRUBIN,TOTAL 1.7 mg/dL (0.2-1.3); BLOOD UREA NITROGEN 5 mg/dL (7-20); CALCIUM 10.2 mg/dL (8.4-10.2); CARBON DIOXIDE 26 mmol/L (22-30); CHLORIDE 108 mmol/L (98-107); EOSINOPHILS % (MANUAL) 2 % (0-6); GLUCOSE 99 mg/dL (75-110); LIPASE 101.6 U/L (23-300); LYMPHOCYTES % (MANUAL) 17 % (13-45); MONOCYTES % (MANUAL) 5 % (3-13); SEGMENTED NEUTROPHILS % (MAN) 75 % (42-78); SODIUM 139.8 mmol/L (137-145); TOTAL CELLS COUNTED 100; TOTAL PROTEIN 6.1 g/dL (6.3-8.2)
[2018-02-28 15:19] LABS: ANISOCYTOSIS 3+; HYPOCHROMASIA 2+; OVALOCYTES SLIGHT; PLATELET COMMENT ADEQUATE; POIKILOCYTOSIS 1+; POLYCHROMASIA SLIGHT; SCHISTOCYTES SLIGHT; TARGET CELLS 1+
--- NOTE | 2018-02-28 15:30 | ER Document Report ---
ED General - General Mode of Arrival: Ambulatory TRAVEL OUTSIDE OF THE [place] 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 Daughter states herself and the patient were lightly working in the yard when the patient went to get some water but did not return outside. Daughter states she went into the house and saw the patient sitting in a chair, looking pale and antonio who then proceeded to vomit. Patient states she has similar episodes approximately every 6 months with the last episode happening in July. Patient denies any abdominal pain. Patient states she feels good at bedside. Patient is currently prescribed Gleevac 200mg daily which daughter reports the patient is noncompliant with. She states dosing of Gleevac increased at the beginning of the year from 200mg MWF to 200mg daily. She states she believes the patient takes Gleevac less than every other day. (LEIGHA VALIENTE) - Related Data Allergies/Adverse Reactions: Sulfa (Sulfonamide Antibiotics) Allergy (Verified 02/28/18 13:54) Past Medical History - General Information source: Patient, Relative, [facility] Records - Social History Smoking Status: Current Every Day Smoker Frequency of alcohol use: None Drug Abuse: None Family History: Reviewed & Not Pertinent Patient has suicidal ideation: No Patient has homicidal ideation: No - Past Medical History Cardiac Medical History: Reports: Hx Hypertension Pulmonary Medical History: Reports: Hx COPD Neurological Medical History: Reports: Hx Cerebrovascular Accident Musculoskeletal Medical History: Reports Hx Arthritis Psychiatric Medical History: Reports: Hx Depression Past Surgical History: Reports: Hx Abdominal Surgery, Hx Cholecystectomy, Hx Hysterectomy - Immunizations Immunizations up to date: Yes Hx Diphtheria, Pertussis, Tetanus Vaccination: Yes Hx Pneumococcal Vaccination: 03/20/14 <LEIGHA VALIENTE - Last Filed: 02/28/18 16:01> Review of Systems - Review of Systems Constitutional: No symptoms reported EENT: No symptoms reported Cardiovascular: No symptoms reported Respiratory: No symptoms reported Gastrointestinal: See HPI, Diarrhea, Vomiting Genitourinary: No symptoms reported Female Genitourinary: No symptoms reported Musculoskeletal: No symptoms reported Skin: No symptoms reported Hematologic/Lymphatic: No symptoms reported Neurological/Psychological: No symptoms reported -: Yes All other systems reviewed and negative <LEIGHA VALIENTE - Last Filed: 02/28/18 16:01> Physical Exam <LEIGHA VALIENTE - Last Filed: 02/28/18 16:01> <ARNOLD ESCAMILLA - Last Filed: 02/28/18 17:33> - Vital signs Vitals: Temp Pulse Resp BP Pulse Ox 97.9 F 75 14 142/56 H 97 02/28/18 13:58 02/28/18 13:58 02/28/18 13:58 02/28/18 13:58 02/28/18 13:58 - Notes Notes: GENERAL: Alert, interacts well. No acute distress. HEAD: Normocephalic, atraumatic. EYES: Pupils equal, round, and reactive to light. Extraocular movements intact. ENT: Oral mucosa moist, tongue midline. NECK: Full range of motion. Supple. Trachea midline. LUNGS: Expiratory wheezes, inspiratory rhonchi. HEART: Regular rate and rhythm. No murmurs, gallops, or rubs. ABDOMEN: Soft, non-tender. Non-distended. Bowel sounds present in all 4 quadrants. EXTREMITIES: Moves all 4 extremities spontaneously. No edema, radial and dorsalis pedis pulses 2/4 bilaterally. No cyanosis. NEUROLOGICAL: Alert and oriented x3. Normal speech. PSYCH: Normal affect, normal mood. SKIN: Warm, dry, normal turgor. No rashes or lesions noted. (LEIGHA VALIENTE) Course - Laboratory Result Diagrams: 02/28/18 14:35 02/28/18 14:35 <LEIGHA VALIENTE - Last Filed: 02/28/18 16:01> - Laboratory Result Diagrams: 02/28/18 14:35 02/28/18 14:35 <ARNOLD ESCAMILLA - Last Filed: 02/28/18 17:33> - Vital Signs Vital signs: Temp Pulse Resp BP Pulse Ox 97.9 F 62 14 142/57 H 97 02/28/18 13:58 02/28/18 16:13 02/28/18 13:58 02/28/18 16:13 02/28/18 13:58 - Laboratory Laboratory results interpreted by me: 02/28/18 02/28/18 02/28/18 14:35 14:35 16:15 Hgb 10.4 L Hct 32.4 L MCV 69 L MCH 22.1 L RDW 20.7 H Chloride 108 H BUN 5 L Est GFR (Non-Af Amer) 57 L Total Bilirubin 1.7 H Direct Bilirubin 0.5 H Total Protein 6.1 L Urine Protein 100 H Urine Urobilinogen 2.0 H Ur Leukocyte Esterase TRACE H Discharge <LEIGHA VALIENTE - Last Filed: 02/28/18 16:01> <ARNOLD ESCAMILLA - Last Filed: 02/28/18 17:33> - Discharge Clinical Impression: Near syncope Vomiting Qualifiers: Vomiting type: unspecified Vomiting Intractability: non-intractable Nausea presence: with nausea Qualified Code(s): R11.2 - Nausea with vomiting, unspecified Diarrhea Qualifiers: Diarrhea type: unspecified type Qualified Code(s): R19.7 - Diarrhea, unspecified Condition: Stable Disposition: HOME, SELF-CARE Additional Instructions: There is no clear explanation for your symptoms today. I suspect you may have a viral type illness and the combination of the diarrhea you have been having, being out in the heat, led to the need to go inside to sit down and then the onset of the nausea with vomiting. Your lab work today is unremarkable. You should drink plenty of fluids this evening, and get plenty of rest. Follow-up with Dr. Reid tomorrow if not feeling back to normal. RETURN TO THE EMERGENCY ROOM IF ANY NEW OR WORSENING SYMPTOMS. Referrals: WILIAN REID MD [Primary Care Provider] - Follow up as needed Scribe Attestation: 02/28/18 16:29 I personally performed the services described in the documentation, reviewed and edited the documentation which was dictated to the scribe in my presence, and it accurately records my words and actions. (ARNOLD ESCAMILLA) Scribe Documentation - Scribe Written by Yamilethibe:: Damien Schwartz, 02/28/2018 15:38 acting as scribe for :: Giovanni <LEIGHA VALIENTE - Last Filed: 02/28/18 16:01>
[2018-02-28] MEDS ORDERED: NORMAL SALINE 1000 ML 1,000 ML IV ONE (16:29)
[2018-02-28 17:07] LABS: APPEARANCE,URINE SLIGHTLY-CLOUDY; BILIRUBIN,URINE NEGATIVE (NEGATIVE); GLUCOSE, URINE NEGATIVE (NEGATIVE); KETONES,URINE NEGATIVE (NEGATIVE); LEUKOCYTE ESTERASE,URINE TRACE (NEGATIVE); NITRITE,URINE NEGATIVE (NEGATIVE); PROTEIN,URINE 100 mg/dL (NEGATIVE)
[2018-02-28 17:11] LABS: CREATINE KINASE 43 U/L (30-135)
[2018-02-28 17:12] LABS: COLOR,URINE YELLOW
[2018-02-28 17:50] VITALS: BP 140/58
--- NOTE | 2018-02-28 19:34 | EKG REPORT ---
SEVERITY:- NORMAL ECG - SINUS RHYTHM : Confirmed by: Chelly Bonilla MD 28-Feb-2018 19:34:12
== END 2018-02-28 17:49 | disposition home or self-care (01) ==
LOC: ER 13:54
DX: R11.2 Nausea with vomiting, unspecified (principal); R19.7 Diarrhea, unspecified; R55 Syncope and collapse; F03.90 Unspecified dementia, unspecified severity, without behavioral disturbance, psychotic disturbance, mood disturbance, and anxiety; F17.200 Nicotine dependence, unspecified, uncomplicated; I10 Essential (primary) hypertension; J44.9 Chronic obstructive pulmonary disease, unspecified; Z90.49 Acquired absence of other specified parts of digestive tract; Z90.710 Acquired absence of both cervix and uterus; Z88.2 Allergy status to sulfonamides
CPT/HCPCS: 93005; 99284; 96361; 96374; 36415; 82550; 83690; 85025; 80053; 81001; 84484; 93010; J2405

== ENCOUNTER → 2018-05-09 | Outpatient (CLI) | payer MEDICARE, BC ==
--- NOTE | 2018-05-09 10:43 | RADIOLOGY REPORT (SQ) ---
EXAM DESCRIPTION: CT CHEST WITH; CT ABD/PELVIS WITH IV ORAL COMPLETED DATE/TIME: 05/09/2018 10:00 am REASON FOR STUDY: GASTROINTESTINAL STROMAL TUMOR OF STOMACH (C49.A2) C49.A2 GASTROINTESTINAL STROMA L TUMOR OF STOMACH COMPARISON: CT chest 01/23/2018 CT abdomen pelvis 10/16/2017 CT chest abdomen pelvis 08/07/2017 CONTRAST TYPE AND DOSE: contrast/concentration: Isovue 350.00 mg/ml; Total Contrast Delivered: 68.0 ml; Total Saline Delivered: 65.0 ml RENAL FUNCTION: Creatinine 1.0 TECHNIQUE: CT scan of the chest performed using helical scanning technique with dynamic intravenous contrast injection. Images reviewed with lung, soft tissue and bone windows. Reconstructed coronal a nd sagittal MPR images reviewed. All images stored on PACS. CT scan of the abdomen and pelvis performed with intravenous and with oral contrastusing helical scan tay technique with dynamic intravenous contrast injection. Images reviewed with lung, soft tissue a nd bone windows. Reconstructed coronal and sagittal MPR images reviewed. Delayed images for evaluat ion of the urinary system also acquired and evaluated. All images stored on PACS. All CT scanners at this facility use dose modulation, iterative reconstruction, and/or weight based d osing when appropriate to reduce radiation dose to as low as reasonably achievable (ALARA). [facility]: Dose Right [facility]: CareDose [facility]: Dose Right [facility]: Teradose 4D [facility]: [employer] RADIATION DOSE: CT Rad equipment meets quality standard of care and radiation dose reduction techniq ues were employed. CTDIvol: 4.4 - 5.2 mGy. DLP: 698 mGy-cm. . LIMITATIONS: None. FINDINGS: CHEST: LUNGS AND PLEURA: No opacities, nodules, masses. No pneumothorax. No effusions. HILAR AND MEDIASTINAL STRUCTURES: No identified masses or abnormal nodes. HEART AND VASCULAR STRUCTURES: No aneurysm or dissection. No central pulmonary emboli. No pericardi al effusion. Diffuse coronary artery calcifications. HARDWARE: None. THYROID AND OTHER SOFT TISSUES: Stable 1.7 cm nodule right lower pole thyroid. Small hiatal hernia. BONES: No significant finding. OTHER: No other significant finding. ABDOMEN AND PELVIS: LIVER: New right lobe liver mass, 2.8 cm posterior right lobe liver worrisome for metastatic disease. SPLEEN: Normal size. No focal lesions. PANCREAS: No masses. No significant calcifications. No adjacent inflammation or peripancreatic fluid collections. Pancreatic duct not dilated. GALLBLADDER: Surgically absent ADRENAL GLANDS: No significant masses or asymmetry. RIGHT KIDNEY AND URETER: No solid masses. Right midpole 2 cm renal cortical cyst. No significant ca lcification. No hydronephrosis or hydroureter. LEFT KIDNEY AND URETER: No solid masses. Left upper pole 1 cm cortical cyst, left midpole 2 cm corti ortega cyst. No significant calcification. No hydronephrosis or hydroureter. AORTA AND VESSELS: No aneurysm. No dissection. Renal arteries, SMA, celiac without stenosis. RETROPERITONEUM: No retroperitoneal adenopathy, hemorrhage or masses. BOWEL AND PERITONEAL CAVITY: Multiple peritoneal implants are present, larger than on 10/16/2017 as fo llows: Mid epigastric image 50, 2.5 x 1.8 cm (was 1.7 x 1.1 cm) Right upper quadrant image 52, 3.9 x 3.1 cm (was 3.3 x 1.8 cm) Right lower quadrant image 65, 5.7 x 3.1 cm (was 2.1 x 2 cm) Left lower quadrant image 51, 5.5 x 3.2 cm (was 3.3 cm) Left lower quadrant image 58, 3 x 2.7 cm (was 2.1 x 2 cm) Patient drank oral contrast. No evidence of bowel obstruction. No ascites. No free intraperitoneal air or fluid. APPENDIX: Normal. ABDOMINAL WALL: No masses. No hernias. PELVIS: No mass or free fluid. Normal bladder. Post hysterectomy BONES: No significant or acute findings. OTHER: No other significant finding. IMPRESSION: No CT evidence of metastatic disease to the chest Increase in size of multiple peritoneal implants compared to prior CT abdomen pelvis 10/16/2017 TECHNICAL DOCUMENTATION: JOB ID: [id number] Quality ID # [id number]: Final reports with documentation of one or more dose reduction techniques (e.g., Au tomated exposure control, adjustment of the mA and/or kV according to patient size, use of iterative reconstruction technique) 2010 [employer]- All Rights Reserved Reading location - IP/workstation name: [facility] [email or web address]
== END ==
LOC: RAD 09:22
PROVIDERS: ATTEND Internal Medicine Medical Oncology
DX: C49.A2 Gastrointestinal stromal tumor of stomach (principal)
CPT/HCPCS: 71260; 74177

== ENCOUNTER 2018-10-04 15:16 | Inpatient (IN) | payer MEDICARE, BC ==
--- NOTE | 2018-10-04 15:42 | ER Document Report ---
ED General - General Chief Complaint: Abdominal Pain Stated Complaint: ABDOMINAL PAIN Time Seen by Provider: 10/04/18 15:28 Primary Care Provider: LAURIE BECERRIL MD [Primary Care Provider] - Follow up as needed TRAVEL OUTSIDE OF THE [place] IN LAST 30 DAYS: No - HPI Notes: Patient is a 78-year-old female with a history of intestinal cancer and on daily chemo who presents to the emergency department per the direction of Dr. Christian for direct admit. Dr. Christian has the patient bring his order sheet as well. Patient has been complaining of increased abdominal pain over the past 2 days with associated diarrhea. She otherwise feels well. She is urinating normally. Family states that she is acting and behaving normally. No other concerns or complaints. Denies any headache, fever, neck pain, URI, sore throat, chest pain, palpitations, syncope, cough, shortness of breath, wheeze, dyspnea, nausea/vomiting, urinary retention, dysuria, hematuria, or rash. - Related Data Allergies/Adverse Reactions: Sulfa (Sulfonamide Antibiotics) Allergy (Verified 10/04/18 15:20) Past Medical History - Social History Smoking Status: Current Every Day Smoker Chew tobacco use (# tins/day): No Frequency of alcohol use: None Drug Abuse: None Family History: Reviewed & Not Pertinent Patient has suicidal ideation: No Patient has homicidal ideation: No - Past Medical History Cardiac Medical History: Reports: Hx Hypertension Pulmonary Medical History: Reports: Hx COPD Neurological Medical History: Reports: Hx Cerebrovascular Accident. Denies: Hx Seizures Renal/ Medical History: Denies: Hx Peritoneal Dialysis Musculoskeletal Medical History: Reports Hx Arthritis Psychiatric Medical History: Reports: Hx Depression Past Surgical History: Reports: Hx Abdominal Surgery, Hx Cholecystectomy, Hx Hysterectomy - Immunizations Immunizations up to date: Yes Hx Diphtheria, Pertussis, Tetanus Vaccination: Yes Hx Pneumococcal Vaccination: 03/20/14 Review of Systems - Review of Systems -: Yes All other systems reviewed and negative Physical Exam - Vital signs Vitals: Temp Pulse Resp BP Pulse Ox 98 F 83 16 122/67 100 10/04/18 15:24 10/04/18 15:24 10/04/18 15:24 10/04/18 15:24 10/04/18 15:24 - Notes Notes: PHYSICAL EXAMINATION: GENERAL: Well-appearing, well-nourished and in no acute distress. HEAD: Atraumatic, normocephalic. EYES: Pupils equal round and reactive to light, extraocular movements intact, sclera anicteric, conjunctiva are normal. ENT: Nares patent and without discharge. oropharynx clear without exudates. No tonsilar hypertrophy or erythema. Moist mucous membranes. NECK: Normal range of motion, supple without lymphadenopathy LUNGS: Breath sounds clear to auscultation bilaterally and equal. No wheezes rales or rhonchi. HEART: Regular rate and rhythm without murmurs, rubs, gallops. ABDOMEN: Soft, nondistended abdomen. No guarding, no rebound. Normal bowel sounds present. No CVA tenderness bilaterally. + mild mid abd tenderness. Musculoskeletal: FROM to passive/active. Strength 5+/5. Extremities: No cyanosis, clubbing, or edema b/l. Peripheral pulses 2+. Capillary refill less than 3 seconds. NEUROLOGICAL: Cranial nerves grossly intact. Normal speech, normal gait. PSYCH: Normal mood, normal affect. SKIN: Warm, Dry, normal turgor, no rashes or lesions noted. Course - Re-evaluation Re-evalutation: 10/04/18 15:38 Patient is an afebrile, well-hydrated, 78-year-old female who presents emergency department for abdominal pain and diarrhea in the setting of intestinal cancer. She is a direct admit per Dr. Christian who has admit orders for the patient. Vitals are currently acceptable. Patient is nontoxic-appearing is able to tolerate p.o. without difficulty. I did review CODE STATUS with the patient and family and at that time she states that she does not want anything done to her and is a DNR. This is confirmed by the family. She is alert and oriented and of sound mind at this time. Labs and imaging orders per Dr. Christian. - Vital Signs Vital signs: Temp Pulse Resp BP Pulse Ox 98 F 83 16 122/67 100 10/04/18 15:24 10/04/18 15:24 10/04/18 15:24 10/04/18 15:24 10/04/18 15:24 Discharge - Discharge Clinical Impression: Abdominal pain Qualifiers: Abdominal location: generalized Qualified Code(s): R10.84 - Generalized abdominal pain Diarrhea Qualifiers: Diarrhea type: unspecified type Qualified Code(s): R19.7 - Diarrhea, unspecified GIST (gastrointestinal stromal tumor), malignant Qualifiers: Malignant gastrointestinal stromal tumor location: unspecified Qualified Code(s): C49.A0 - Gastrointestinal stromal tumor, unspecified site Condition: Stable Disposition: ADMITTED INPATIENT Admitting Provider: Anahi Unit Admitted: IMCU Referrals: LAURIE BECERRIL MD [Primary Care Provider] - Follow up as needed
--- NOTE | 2018-10-04 16:24 | RADIOLOGY REPORT (SQ) ---
EXAM DESCRIPTION: CHEST SINGLE VIEW COMPLETED DATE/TIME: 10/04/2018 4:13 pm REASON FOR STUDY: cp COMPARISON: 04/02/2015 EXAM PARAMETERS: NUMBER OF VIEWS: One view. TECHNIQUE: Single frontal radiographic view of the chest acquired. RADIATION DOSE: NA LIMITATIONS: None. FINDINGS: LUNGS AND PLEURA: No opacities, masses or pneumothorax. No pleural effusion. MEDIASTINUM AND HILAR STRUCTURES: No masses. Contour normal. HEART AND VASCULAR STRUCTURES: Heart normal in size. Normal vasculature. BONES: No acute findings. HARDWARE: None in the chest. OTHER: Few prominent loops of air filled small bowel are seen within the left upper quadrant. Surgic al clips are seen within the right upper quadrant. IMPRESSION: No evidence of acute cardiopulmonary abnormality. Prominent loops of gas-filled small b owel within the left upper quadrant are a nonspecific finding ; ileus, enteritis, or developing small bowel obstruction may appear similarly. TECHNICAL DOCUMENTATION: JOB ID: [id number] [employer]- All Rights Reserved Reading location - IP/workstation name: [email or web address]
--- NOTE | 2018-10-04 16:27 | RADIOLOGY REPORT (SQ) ---
EXAM DESCRIPTION: KUB/ABDOMEN (SINGLE VIEW) COMPLETED DATE/TIME: 10/04/2018 4:13 pm REASON FOR STUDY: cp COMPARISON: 07/22/2015 NUMBER OF VIEWS: One view. TECHNIQUE: Supine radiographic image of the abdomen acquired. LIMITATIONS: None. FINDINGS: BOWEL GAS PATTERN: There are several loops of dilated small bowel overlying the pelvis. T here is air within the colon and stomach. Findings are nonspecific. This could represent focal ileu s. CALCIFICATIONS: No suspicious calcifications. SOFT TISSUES: Calcified uterine fibroid is noted. HARDWARE: None in the abdomen. BONES: No acute fracture. No worrisome bone lesions. OTHER: No other significant finding. IMPRESSION: Nonspecific gas pattern with focal dilated loops of small bowel in the pelvis. This cou ld represent focal ileus. TECHNICAL DOCUMENTATION: JOB ID: [id number] [employer]- All Rights Reserved Reading location - IP/workstation name: [email or web address]
[2018-10-04 16:43] LABS: HEMATOCRIT 35.9 % (36.0-47.0); HEMOGLOBIN 11.4 g/dL (12.0-15.5); MEAN CORPUSCULAR HEMOGLOBIN 21.3 pg (27.0-33.4); MEAN CORPUSCULAR HGB CONC 31.8 g/dL (32.0-36.0); MEAN CORPUSCULAR VOLUME 67 fl (80-97); PLATELET COUNT 223 10^3/uL (150-450); RED BLOOD COUNT 5.38 10^6/uL (3.72-5.28); RED CELL DISTRIBUTION WIDTH 18.6 % (11.5-14.0); WHITE BLOOD COUNT 4.8 10^3/uL (4.0-10.5)
[2018-10-04 16:55] LABS: ALANINE AMINOTRANSFERASE 33 U/L (9-52); ALBUMIN 4.9 g/dL (3.5-5.0); ALKALINE PHOSPHATASE 115 U/L (38-126); ANION GAP 16 (5-19); ASPARTATE AMINO TRANSFERASE 51 U/L (14-36); BILIRUBIN,DIRECT 0.4 mg/dL (0.0-0.4); BILIRUBIN,TOTAL 0.7 mg/dL (0.2-1.3); BLOOD UREA NITROGEN 35 mg/dL (7-20); CALCIUM 10.7 mg/dL (8.4-10.2); CARBON DIOXIDE 16 mmol/L (22-30); CHLORIDE 99 mmol/L (98-107); GLUCOSE 111 mg/dL (75-110); POTASSIUM 4.6 mmol/L (3.6-5.0); SODIUM 130.8 mmol/L (137-145); TOTAL PROTEIN 7.6 g/dL (6.3-8.2)
[2018-10-04 17:08] LABS: ABSOLUTE LYMPHOCYTES# (MANUAL) 0.8 10^3/uL (0.5-4.7); ABSOLUTE MONOCYTES # (MANUAL) 0.1 10^3/uL (0.1-1.4); ABSOLUTE NEUTROPHILS# (MANUAL) 3.8 10^3/uL (1.7-8.2); BASOPHILS % (MANUAL) 0 % (0-2); EOSINOPHILS % (MANUAL) 0 % (0-6); LYMPHOCYTES % (MANUAL) 17 % (13-45); MONOCYTES % (MANUAL) 3 % (3-13); SEGMENTED NEUTROPHILS % (MAN) 80 % (42-78); TOTAL CELLS COUNTED 100
[2018-10-04 17:09] LABS: ANISOCYTOSIS 2+; HYPOCHROMASIA 2+; POIKILOCYTOSIS 1+; POLYCHROMASIA SLIGHT
[2018-10-04 17:10] LABS: OVALOCYTES SLIGHT; PLATELET CLUMPS PRESENT; PLATELET COMMENT ADEQUATE; TEAR DROP CELLS SLIGHT
--- NOTE | 2018-10-04 18:59 | RADIOLOGY REPORT (SQ) ---
EXAM DESCRIPTION: U/S RETROPERITON LTD COMPLETED DATE/TIME: 10/04/2018 6:46 pm REASON FOR STUDY: kidney failure COMPARISON: CT abdomen and pelvis 05/09/2018 TECHNIQUE: Dynamic and static grayscale images acquired of the kidneys and bladder and recorded on P ACS. Additional selected color Doppler and spectral images recorded. LIMITATIONS: None. FINDINGS: RIGHT KIDNEY: Normal size. Normal echogenicity. No solid or suspicious masses. Re- d emonstration of an exophytic simple cyst measuring up to 2.4 cm. No hydronephrosis. No calcificat ions. LEFT KIDNEY: Normal size. Normal echogenicity. Re- demonstration of an exophytic simple cyst arelis uring 2.1 cm ; additionally, re- demonstration of a 1.7 cm mildly complex exophytic cyst. No solid or suspicious masses. No hydronephrosis. No calcifications. BLADDER: No masses. OTHER FINDINGS: No other significant finding. IMPRESSION: Essentially stable imaging appearance of multiple bilateral cysts relative to CT imaging performed 05/09/2018. No acute findings. TECHNICAL DOCUMENTATION: JOB ID: [id number] [employer]- All Rights Reserved Reading location - IP/workstation name: [email or web address]
[2018-10-04] MEDS: HYDROMORPHONE HCL INJ/PF 2 MG/ML AMPULE IV PRN (20:13)
--- NOTE | 2018-10-04 21:38 | PDOC H&P ---
History of Present Illness Admission Date/PCP: 10/04/18 15:59 WILIAN REID MD History of Present Illness: SAHRA GOMEZ is a 78 year old female, she has a history of gastro-inte stinal stromal tumor, malignant, she is supposed to be on Gleevec but she is extremely noncompliant with the medication, she came to the office with her daughter because she was not feeling well, she has many nonspecific symptoms, she was pale looking,, she was evaluated in the office, she looks acutely ill, it was felt that she needed to be admitted to the hospital. 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 Patient also continued to smoke cigarette despite the complications of tobacco Past Medical History Cardiac Medical History: Reports: Hypertension Pulmonary Medical History: Reports: Chronic Obstructive Pulmonary Disease (COPD) Malignancy Medical History: Reports: Other - Gastrointestinal stromal tumor, malignant Musculoskeltal Medical History: Reports: Arthritis Psychiatric Medical History: Reports: Depression Hematology: Reports: Anemia Past Surgical History Past Surgical History: Reports: Cholecystectomy, Hysterectomy Social History Smoking Status: Current Every Day Smoker Frequency of Alcohol Use: None Hx Recreational Drug Use: No Drugs: None Hx Prescription Drug Abuse: No Family History Family History: Reviewed & Not Pertinent Parental Family History Reviewed: Yes Children Family History Reviewed: Yes Sibling(s) Family History Reviewed.: Yes Medication/Allergy Home Medications: Donepezil HCl [Aricept 5 mg Tablet] 5 mg PO QHS 10/04/18 Olmesartan/Hydrochlorothiazide [Olmesartan-Hctz 40-25 mg Tab] 1 each PO DAILY 10/04/18 Pramipexole Di-HCl [Mirapex] 0.125 mg PO QHS 10/04/18 Allergies/Adverse Reactions: Sulfa (Sulfonamide Antibiotics) Allergy (Verified 10/04/18 15:20) Review of Systems Constitutional: PRESENT: anorexia, weakness, weight loss Eyes: ABSENT: visual disturbances Ears: ABSENT: hearing changes Cardiovascular: ABSENT: chest pain, dyspnea on exertion, edema, orthropnea, palpitations Respiratory: ABSENT: cough, hemoptysis Gastrointestinal: ABSENT: abdominal pain, constipation, diarrhea, hematemesis, hematochezia, nausea, vomiting Genitourinary: ABSENT: dysuria, hematuria Musculoskeletal: ABSENT: joint swelling Integumentary: ABSENT: rash, wounds Neurological: ABSENT: abnormal gait, abnormal speech, confusion, dizziness, focal weakness, syncope Psychiatric: ABSENT: anxiety, depression, homidical ideation, suicidal ideation Endocrine: ABSENT: cold intolerance, heat intolerance, menstrual abnormalities, polydipsia, polyuria Hematologic/Lymphatic: ABSENT: easy bleeding, easy bruising, lymphadenopathy Physical Exam Vital Signs: Temp Pulse Resp BP Pulse Ox 98.2 F 72 13 155/83 H 98 10/04/18 20:29 10/04/18 17:57 10/04/18 20:25 10/04/18 20:25 10/04/18 20:25 Intake & Output 10/03/18 10/04/18 10/05/18 06:59 06:59 06:59 Weight 54.1 kg General appearance: PRESENT: mild distress Head exam: PRESENT: atraumatic, normocephalic Eye exam: PRESENT: PERRLA Ear exam: PRESENT: normal external ear exam Mouth exam: PRESENT: moist, tongue midline Neck exam: PRESENT: full ROM Respiratory exam: PRESENT: rhonchi Cardiovascular exam: PRESENT: RRR, +S1, +S2 Pulses: PRESENT: normal dorsalis pedis pul, +2 pedal pulses bilateral Vascular exam: PRESENT: normal capillary refill GI/Abdominal exam: PRESENT: normal bowel sounds, soft Rectal exam: PRESENT: deferred Neurological exam: PRESENT: alert, CN II-XII grossly intact. ABSENT: motor sensory deficit Psychiatric exam: PRESENT: appropriate affect, normal mood Skin exam: PRESENT: dry, intact, warm Results Laboratory Results: 10/04/18 16:19 10/04/18 16:19 10/04/18 10/04/18 16: 16:19 WBC 4.8 RBC 5.38 H Hgb 11.4 L Hct 35.9 L MCV 67 L MCH 21.3 L MCHC 31.8 L RDW 18.6 H Plt Count 223 Seg Neutrophils % Not Reportable Lymphocytes % Not Reportable Monocytes % Not Reportable Eosinophils % Not Reportable Basophils % Not Reportable Absolute Neutrophils Not Reportable Absolute Lymphocytes Not Reportable Absolute Monocytes Not Reportable Absolute Eosinophils Not Reportable Absolute Basophils Not Reportable Sodium 130.8 L Potassium 4.6 Chloride 99 Carbon Dioxide 16 L Anion Gap 16 BUN 35 H Creatinine 2.92 H Est GFR ( Amer) 19 L Est GFR (Non-Af Amer) 16 L Glucose 111 H Calcium 10.7 H Total Bilirubin 0.7 AST 51 H ALT 33 Alkaline Phosphatase 115 Total Protein 7.6 Albumin 4.9 Impressions: Chest X-Ray 10/04/18 00:00 IMPRESSION: No evidence of acute cardiopulmonary abnormality. Prominent loops of gas-filled small bowel within the left upper quadrant are a nonspecific finding ; ileus, enteritis, or developing small bowel obstruction may appear similarly. KUB X-Ray 10/04/18 00:00 IMPRESSION: Nonspecific gas pattern with focal dilated loops of small bowel in the pelvis. This could represent focal ileus. Renal Ultrasound 10/04/18 00:00 IMPRESSION: Essentially stable imaging appearance of multiple bilateral cysts relative to CT imaging performed 05/09/2018. No acute findings. Assessment & Plan - Diagnosis (1) Acute kidney injury Is this a current diagnosis for this admission?: Yes Plan: She has acute kidney injury, kidney ultrasound showed normal-sized kidney no solid or suspicious masses, there was exophytic simple cyst measuring up to 2.4 cm in size no hydronephrosis on the right kidney, the left kidney normal size kidney there was an exophytic simple cyst measuring 2.1 cm also was 1.7 cm mildly complex exophytic cyst no suspicious masses there is no change from disease from 05/09/2018 the acute kidney injury could also be from hypercalcemia, she will be hydrated with fluid (2) Hypercalcemia Is this a current diagnosis for this admission?: Yes Plan: 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
[2018-10-04] MEDS: NORMAL SALINE 1000 ML 1,000 ML IV PRN (22:55)
[2018-10-05] MEDS: HYDROMORPHONE HCL INJ/PF 2 MG/ML AMPULE IV PRN (02:25)
[2018-10-05 09:13] LABS: HEMATOCRIT 34.7 % (36.0-47.0); HEMOGLOBIN 10.8 g/dL (12.0-15.5); MEAN CORPUSCULAR HEMOGLOBIN 20.8 pg (27.0-33.4); MEAN CORPUSCULAR HGB CONC 31.2 g/dL (32.0-36.0); MEAN CORPUSCULAR VOLUME 67 fl (80-97); PLATELET COUNT 232 10^3/uL (150-450); RED BLOOD COUNT 5.18 10^6/uL (3.72-5.28); RED CELL DISTRIBUTION WIDTH 18.5 % (11.5-14.0); WHITE BLOOD COUNT 6.2 10^3/uL (4.0-10.5)
[2018-10-05 09:39] LABS: ALANINE AMINOTRANSFERASE 35 U/L (9-52); ALBUMIN 4.3 g/dL (3.5-5.0); ALKALINE PHOSPHATASE 109 U/L (38-126); ANION GAP 15 (5-19); ASPARTATE AMINO TRANSFERASE 44 U/L (14-36); BILIRUBIN,DIRECT 0.4 mg/dL (0.0-0.4); BILIRUBIN,TOTAL 0.6 mg/dL (0.2-1.3); BLOOD UREA NITROGEN 41 mg/dL (7-20); CARBON DIOXIDE 16 mmol/L (22-30); CHLORIDE 99 mmol/L (98-107); GLUCOSE 131 mg/dL (75-110); POTASSIUM 4.3 mmol/L (3.6-5.0); SODIUM 130.2 mmol/L (137-145); TOTAL PROTEIN 6.9 g/dL (6.3-8.2)
[2018-10-05] MEDS: NORMAL SALINE 1000 ML 1,000 ML IV PRN ×3 (10:00→23:00)
--- NOTE | 2018-10-05 10:29 | RADIOLOGY REPORT (SQ) ---
EXAM DESCRIPTION: KUB/ABDOMEN (SINGLE VIEW) COMPLETED DATE/TIME: 10/05/2018 10:15 am REASON FOR STUDY: DIARHHEA COMPARISON: 10/04/2018 NUMBER OF VIEWS: One view. TECHNIQUE: Supine radiographic image of the abdomen acquired. LIMITATIONS: None. FINDINGS: BOWEL GAS PATTERN: Increasing small-bowel distention suspicious for distal small bowel obs truction. CALCIFICATIONS: Unchanged. SOFT TISSUES: No gross mass or suggestion of organomegaly. HARDWARE: There are clips in the right upper quadrant consistent with prior cholecystectomy. BONES: No acute fracture. No worrisome bone lesions. OTHER: No other significant finding. IMPRESSION: Increasing small-bowel distention consistent with distal small-bowel obstruction. Ileus is thought to be less likely. TECHNICAL DOCUMENTATION: JOB ID: [id number] [employer]- All Rights Reserved Reading location - IP/workstation name: [email or web address]
--- NOTE | 2018-10-05 10:29 | RADIOLOGY REPORT (SQ) ---
EXAM DESCRIPTION: CHEST SINGLE VIEW COMPLETED DATE/TIME: 10/05/2018 10:15 am REASON FOR STUDY: UPPER ABD PAIN COMPARISON: 10/04/2018 NUMBER OF VIEWS: One view. TECHNIQUE: Single frontal radiographic view of the chest acquired. LIMITATIONS: None. FINDINGS: LUNGS AND PLEURA: No opacities, masses or pneumothorax. No pleural effusion. MEDIASTINUM AND HILAR STRUCTURES: No masses. Contour normal. HEART AND VASCULAR STRUCTURES: Heart normal in size. Normal vasculature. BONES: No acute findings. HARDWARE: None in the chest. OTHER: No other significant finding. IMPRESSION: NO SIGNIFICANT RADIOGRAPHIC FINDING IN THE CHEST. TECHNICAL DOCUMENTATION: JOB ID: [id number] [employer]- All Rights Reserved Reading location - IP/workstation name: [email or web address]
[2018-10-05] MEDS ORDERED: DEXTROSE 40% GEL 15 GM TUBE PO PRN ×2 (16:40)
[2018-10-05] MEDS ORDERED: DEXTROSE 50%-WATER 25 GM/50 ML DISP.SYRIN IV PRN ×2 (16:40)
[2018-10-05] MEDS ORDERED: GLUCAGON,HUMAN RECOMB 1 MG INJ SUBCUT PRN (16:40)
--- NOTE | 2018-10-05 16:50 | PDOC PROGRESS REPORT ---
Subjective Progress Note for:: 10/05/18 Subjective:: Patient was seen by the bedside, the KUB that was done today demonstrated increasing small bowel obstruction suspicious for distal small bowel obstruction, patient will need NG tube placement Reason For Visit: ABDOMINAL PAIN,DIARRHEA,GIST(GASTROINTESTINAL Physical Exam Vital Signs: Temp Pulse Resp BP Pulse Ox 98.0 F 73 16 134/63 H 100 10/05/18 15:49 10/05/18 15:49 10/05/18 15:49 10/05/18 15:49 10/05/18 15:49 Intake & Output 10/04/18 10/05/18 10/06/18 06:59 06:59 06:59 Intake Total 1237 Output Total 0 0 Balance 0 1237 Weight 54.1 kg General appearance: PRESENT: no acute distress Eye exam: PRESENT: PERRLA Respiratory exam: PRESENT: clear to auscultation keturah Cardiovascular exam: PRESENT: +S1, +S2 GI/Abdominal exam: PRESENT: soft Neurological exam: PRESENT: alert Results Laboratory Results: 10/05/18 08:40 10/05/18 08:40 10/04/18 10/04/18 10/05/18 16:19 16:19 08:40 WBC 4.8 6.2 RBC 5.38 H 5.18 Hgb 11.4 L 10.8 L Hct 35.9 L 34.7 L MCV 67 L 67 L MCH 21.3 L 20.8 L MCHC 31.8 L 31.2 L RDW 18.6 H 18.5 H Plt Count 223 232 Seg Neutrophils % Not Reportable Lymphocytes % Not Reportable Monocytes % Not Reportable Eosinophils % Not Reportable Basophils % Not Reportable Absolute Neutrophils Not Reportable Absolute Lymphocytes Not Reportable Absolute Monocytes Not Reportable Absolute Eosinophils Not Reportable Absolute Basophils Not Reportable Sodium 130.8 L Potassium 4.6 Chloride 99 Carbon Dioxide 16 L Anion Gap 16 BUN 35 H Creatinine 2.92 H Est GFR ( Amer) 19 L Est GFR (Non-Af Amer) 16 L Glucose 111 H Calcium 10.7 H Total Bilirubin 0.7 AST 51 H ALT 33 Alkaline Phosphatase 115 Total Protein 7.6 Albumin 4.9 10/05/18 08:40 WBC RBC Hgb Hct MCV MCH MCHC RDW Plt Count Seg Neutrophils % Lymphocytes % Monocytes % Eosinophils % Basophils % Absolute Neutrophils Absolute Lymphocytes Absolute Monocytes Absolute Eosinophils Absolute Basophils Sodium 130.2 L Potassium 4.3 Chloride 99 Carbon Dioxide 16 L Anion Gap 15 BUN 41 H Creatinine 3.01 H Est GFR ( Amer) 18 L Est GFR (Non-Af Amer) 15 L Glucose 131 H Calcium 10.0 Total Bilirubin 0.6 AST 44 H ALT 35 Alkaline Phosphatase 109 Total Protein 6.9 Albumin 4.3 Impressions: Renal Ultrasound 10/04/18 00:00 IMPRESSION: Essentially stable imaging appearance of multiple bilateral cysts relative to CT imaging performed 05/09/2018. No acute findings. Chest X-Ray 10/05/18 08:00 IMPRESSION: NO SIGNIFICANT RADIOGRAPHIC FINDING IN THE CHEST. KUB X-Ray 10/05/18 09:00 IMPRESSION: Increasing small-bowel distention consistent with distal small- bowel obstruction. Ileus is thought to be less likely. Assessment & Plan - Diagnosis (1) Acute kidney injury Is this a current diagnosis for this admission?: Yes (2) Hypercalcemia Is this a current diagnosis for this admission?: Yes (3) Gastrointestinal stromal tumor (GIST) Is this a current diagnosis for this admission?: Yes (4) Small bowel obstruction Is this a current diagnosis for this admission?: Yes Plan: KUB demonstrated worsening small bowel obstruction, insert KUB, obtain CT scan of abdomen and pelvis with p.o. contrast, consultation with the surgeon may be required she has a history of gastrointestinal stromal tumor, she has had this episode previously of small bowel obstruction and the last time she had it was treated successfully with NG tube placement, she did not require a laparotomy
[2018-10-05] MEDS: ONDANSETRON HCL INJ/PF 4 MG/2 ML SDV IV PRN (18:43)
--- NOTE | 2018-10-05 19:16 | RADIOLOGY REPORT (SQ) ---
EXAM DESCRIPTION: CT ABD/PELVIS ORAL ONLY COMPLETED DATE/TIME: 10/05/2018 6:29 pm REASON FOR STUDY: small bowel obstruction R10.9 UNSPECIFIED ABDOMINAL PAIN COMPARISON: 05/09/2018 TECHNIQUE: CT scan of the abdomen and pelvis performed using helical scanning technique with only or al contrast. Images reviewed with lung, soft tissue, and bone windows. Reconstructed coronal and sagi ttal MPR images reviewed. Delayed images were not acquired. All images stored on PACS. All CT scanners at this facility use dose modulation, iterative reconstruction, and/or weight based d osing when appropriate to reduce radiation dose to as low as reasonably achievable (ALARA). [facility]: Dose Right [facility]: CareDose [facility]: Dose Right [facility]: Teradose 4D [facility]: CBA PHARMA CONTRAST TYPE AND DOSE: Oral only RENAL FUNCTION: Not required RADIATION DOSE: CT Rad equipment meets quality standard of care and radiation dose reduction techniq ues were employed. CTDIvol: 5.1 mGy. DLP: 252 mGy-cm.. LIMITATIONS: None. FINDINGS: LOWER CHEST: No significant findings. LIVER: Normal size. Similar low-density lesion in the posterior-inferior right lobe of the liver. . No dilated ducts. SPLEEN: Normal size. No focal lesions. PANCREAS: No masses identified. No significant calcifications. No adjacent inflammation or peripancre atic fluid collections. Pancreatic duct not dilated. GALLBLADDER: Surgically absent. ADRENAL GLANDS: No significant masses. RIGHT KIDNEY AND URETER: Similar cysts identified. No calcified stones. No hydronephrosis or hydrour eter. LEFT KIDNEY AND URETER: Similar cysts identified. No calcified stones. No hydronephrosis or hydrouret er. AORTA AND VESSELS: No aneurysm. RETROPERITONEUM: No bulky retroperitoneal adenopathy. BOWEL AND PERITONEAL CAVITY: There is a small bowel obstruction with loops measuring up to 4 cm with a transition point in the left mid abdomen. Given some of the appearance of bowel orientation and me senteric appearance is difficult to exclude an internal hernia. There are multiple enlarged mesenter ic masses throughout the abdomen and pelvis, some calcified and diminished size compared with the May exam. APPENDIX: Not visualized. PELVIS: Prior hysterectomy. Small amounts of free fluid. Unremarkable bladder. ABDOMINAL WALL: No masses. No hernias. BONES: No acute findings. OTHER: No other significant finding. IMPRESSION: There is a small bowel obstruction with loops measuring up to 4 cm with a transition poi nt in the left mid abdomen. Given some of the appearance of bowel orientation and mesenteric appeara nce is difficult to exclude an internal hernia. There are multiple enlarged mesenteric masses throug hout the abdomen and pelvis, some calcified and diminished size compared with the May 2018 exam. TECHNICAL DOCUMENTATION: JOB ID: [id number] Quality ID # [id number]: Final reports with documentation of one or more dose reduction techniques (e.g., Au tomated exposure control, adjustment of the mA and/or kV according to patient size, use of iterative reconstruction technique) 2010 [employer]- All Rights Reserved Reading location - IP/workstation name: [email or web address]
--- NOTE | 2018-10-05 22:40 | PDOC CONSULTATION ---
Consultation Consult Date: 10/05/18 Consult reason:: small bowel obstruction History of Present Illness Admission Date/PCP: 10/04/18 15:59 WILIAN REID MD History of Present Illness: SAHRA GOMEZ is a 78 year old female, she has a history of gastro- intestinal stromal tumor, malignant, she is supposed to be on Gleevec but she is extremely noncompliant with the medication unclear when dx was made, but according to her primary md, at least 5yrs she now c/o abd distensiin and nausa,vomitng ct obtained shows complete sbo, possible internal hernia denies abd pain no passing stool or flatus for last couple of days Past Medical History Cardiac Medical History: Reports: Hypertension Pulmonary Medical History: Reports: Chronic Obstructive Pulmonary Disease (COPD) Neurological Medical History: Denies: Seizures Malignancy Medical History: Reports: Other - Gastrointestinal stromal tumor, malignant Musculoskeltal Medical History: Reports: Arthritis Psychiatric Medical History: Reports: Depression Hematology: Reports: Anemia Past Surgical History Past Surgical History: Reports: Cholecystectomy, Hysterectomy Social History Smoking Status: Current Every Day Smoker Frequency of Alcohol Use: None Hx Recreational Drug Use: No Drugs: None Hx Prescription Drug Abuse: No Family History Family History: Reviewed & Not Pertinent Parental Family History Reviewed: No Children Family History Reviewed: NA Sibling(s) Family History Reviewed.: NA Medication/Allergy Home Medications: Donepezil HCl [Aricept 5 mg Tablet] 5 mg PO QHS 10/04/18 Olmesartan/Hydrochlorothiazide [Olmesartan-Hctz 40-25 mg Tab] 1 each PO DAILY 10/04/18 Pramipexole Di-HCl [Mirapex] 0.125 mg PO QHS 10/04/18 Allergies/Adverse Reactions: Sulfa (Sulfonamide Antibiotics) Allergy (Verified 10/04/18 15:20) Review of Systems Constitutional: PRESENT: weakness, weight loss Eyes: ABSENT: visual disturbances Ears: ABSENT: as per HPI, hearing changes, other Breasts: ABSENT: as per HPI, other Cardiovascular: PRESENT: dyspnea on exertion Gastrointestinal: PRESENT: abdominal pain, bloating Genitourinary: ABSENT: as per HPI, difficulty urinating, dysuria, hematuria, nocturia, other Musculoskeletal: PRESENT: back pain Neurological: ABSENT: as per HPI, abnormal gait, abnormal movements, abnormal speech, confusion, convulsions, dizziness, focal weakness, frequent falls, lack of coordination, memory loss, numbness, paresthesias, restless legs, syncope, tingling, tremor(s), vertigo, weakness, other Psychiatric: ABSENT: as per HPI, anxiety, depression, hallucinations, homidical ideation, suicidal ideation, other Endocrine: ABSENT: as per HPI, cold intolerance, flushing, heat intolerance, menstrual abnormalities, polydipsia, polyphagia, polyuria, other Hematologic/Lymphatic: ABSENT: as per HPI, easy bleeding, easy bruising, lymphadenopathy, other Allergic/Immunologic: ABSENT: as per HPI, seasonal rhinorrhea, other Physical Exam Vital Signs: Temp Pulse Resp BP Pulse Ox 98.0 F 69 16 134/63 H 100 10/05/18 15:49 10/05/18 19:00 10/05/18 15:49 10/05/18 15:49 10/05/18 15:49 Intake & Output 10/04/18 10/05/18 10/06/18 06:59 06:59 06:59 Intake Total 2109 Output Total 0 0 Balance 0 2109 Weight 54.1 kg General appearance: PRESENT: no acute distress Head exam: PRESENT: normocephalic Eye exam: PRESENT: conjunctiva pink Ear exam: PRESENT: normal external ear exam Mouth exam: PRESENT: dry mucosa Neck exam: PRESENT: full ROM Respiratory exam: PRESENT: rhonchi Cardiovascular exam: PRESENT: RRR Pulses: PRESENT: normal radial pulses, normal femoral pulses GI/Abdominal exam: PRESENT: distended, hyperactive bowel sounds Rectal exam: PRESENT: deferred Extremities exam: PRESENT: full ROM Musculoskeletal exam: PRESENT: full ROM Neurological exam: PRESENT: alert, awake, oriented to person, oriented to place Psychiatric exam: PRESENT: appropriate affect Skin exam: PRESENT: dry Results Laboratory Results: 10/05/18 08:40 10/05/18 08:40 10/05/18 10/05/18 10/05/18 08:40 08:40 17:18 WBC 6.2 RBC 5.18 Hgb 10.8 L Hct 34.7 L MCV 67 L MCH 20.8 L MCHC 31.2 L RDW 18.5 H Plt Count 232 Sodium 130.2 L Potassium 4.3 Chloride 99 Carbon Dioxide 16 L Anion Gap 15 BUN 41 H Creatinine 3.01 H Est GFR ( Amer) 18 L Est GFR (Non-Af Amer) 15 L Glucose 131 H Calcium 10.0 Total Bilirubin 0.6 AST 44 H ALT 35 Alkaline Phosphatase 109 Total Protein 6.9 Albumin 4.3 PTH Intact 125.7 H Impressions: Renal Ultrasound 10/04/18 00:00 IMPRESSION: Essentially stable imaging appearance of multiple bilateral cysts relative to CT imaging performed 05/09/2018. No acute findings. Abdomen/Pelvis CT 10/05/18 00:00 IMPRESSION: There is a small bowel obstruction with loops measuring up to 4 cm with a transition point in the left mid abdomen. Given some of the appearance of bowel orientation and mesenteric appearance is difficult to exclude an internal hernia. There are multiple enlarged mesenteric masses throughout the abdomen and pelvis, some calcified and diminished size compared with the May 2018 exam. Chest X-Ray 10/05/18 08:00 IMPRESSION: NO SIGNIFICANT RADIOGRAPHIC FINDING IN THE CHEST. KUB X-Ray 10/05/18 09:00 IMPRESSION: Increasing small-bowel distention consistent with distal small- bowel obstruction. Ileus is thought to be less likely. Assessment & Plan - Diagnosis (1) Abdominal pain Qualifiers: Abdominal location: generalized Qualified Code(s): R10.84 - Generalized abdominal pain Is this a current diagnosis for this admission?: Yes (2) GIST (gastrointestinal stromal tumor), malignant Qualifiers: Malignant gastrointestinal stromal tumor location: small intestine Qualified Code(s): C49.A3 - Gastrointestinal stromal tumor of small intestine (3) Small bowel obstruction Is this a current diagnosis for this admission?: Yes - Plan Summary Plan Summary: pt with known gist tumor on gleevec however has been noncompliant now admitted [facility] sbo with possible internal hernia recommend exploratory laparotomy and possible small bowel resection and release of sbo I discussed risks with pt including bleeding,infection, pulm emboli, heart attack, stroke, injury to adjacent organs and realated to surgery. she agrees to proceed.
[2018-10-06] MEDS: HYDROMORPHONE HCL INJ/PF 2 MG/ML AMPULE IV PRN (01:55)
[2018-10-06] MEDS: ONDANSETRON HCL INJ/PF 4 MG/2 ML SDV IV PRN (01:55)
[2018-10-06] MEDS: NORMAL SALINE 1000 ML 1,000 ML IV PRN (06:18)
[2018-10-06 06:54] LABS: INTERNATIONAL RATION (INR) 1.05; PROTHROMBIN TIME 14.2 SEC (11.4-15.4)
[2018-10-06 07:02] LABS: HEMATOCRIT 30.4 % (36.0-47.0); HEMOGLOBIN 9.6 g/dL (12.0-15.5); MEAN CORPUSCULAR HEMOGLOBIN 21.1 pg (27.0-33.4); MEAN CORPUSCULAR HGB CONC 31.5 g/dL (32.0-36.0); MEAN CORPUSCULAR VOLUME 67 fl (80-97); PLATELET COUNT 193 10^3/uL (150-450); RED BLOOD COUNT 4.54 10^6/uL (3.72-5.28); RED CELL DISTRIBUTION WIDTH 18.5 % (11.5-14.0); WHITE BLOOD COUNT 5.7 10^3/uL (4.0-10.5)
[2018-10-06 07:14] LABS: ANION GAP 11 (5-19); BLOOD UREA NITROGEN 40 mg/dL (7-20); CARBON DIOXIDE 16 mmol/L (22-30); CHLORIDE 108 mmol/L (98-107); GLUCOSE 75 mg/dL (75-110); POTASSIUM 4.3 mmol/L (3.6-5.0); SODIUM 134.8 mmol/L (137-145)
[2018-10-06 08:16] LABS: ABSOLUTE LYMPHOCYTES# (MANUAL) 2.3 10^3/uL (0.5-4.7); ABSOLUTE MONOCYTES # (MANUAL) 0.4 10^3/uL (0.1-1.4); BASOPHILS % (MANUAL) 0 % (0-2); EOSINOPHILS % (MANUAL) 0 % (0-6); LYMPHOCYTES % (MANUAL) 41 % (13-45); MONOCYTES % (MANUAL) 7 % (3-13); NUCLEATED RED BLOOD CELLS 1 /100 WBC (0); SEGMENTED NEUTROPHILS % (MAN) 52 % (42-78); TOTAL CELLS COUNTED 100
[2018-10-06 08:17] LABS: ANISOCYTOSIS 2+; HYPOCHROMASIA 2+; OVALOCYTES 1+; PLATELET COMMENT ADEQUATE; POIKILOCYTOSIS 1+; POLYCHROMASIA SLIGHT
[2018-10-06] MEDS ORDERED: NEOSTIGMINE METHYLSULFATE 10 MG/10 ML VIAL ONE (10:02)
[2018-10-06] MEDS ORDERED: ROCURONIUM BROMIDE INJ 50 MG/5 ML VIAL IV ONE (10:02)
[2018-10-06] MEDS ORDERED: SUCCINYLCHOLINE CHLORIDE INJ 200 MG/10 ML VIAL ONE (10:02)
[2018-10-06] MEDS ORDERED: GLYCOPYRROLATE 1 MG/5 ML SYRINGE ONE (10:02)
--- NOTE | 2018-10-06 10:17 | PDOC PROGRESS REPORT ---
Subjective Progress Note for:: 10/06/18 Subjective:: Patient is currently doing fair Patient seen by the general surgery going for the surgery for the small bowel obstructions Patient does not like the NG tube Reason For Visit: ACUTE KIDNEY INJURY Physical Exam Vital Signs: Temp Pulse Resp BP Pulse Ox 97.9 F 70 18 120/51 L 95 10/06/18 08:25 10/06/18 08:25 10/06/18 08:25 10/06/18 08:25 10/06/18 08:25 Intake & Output 10/05/18 10/06/18 10/07/18 06:59 06:59 06:59 Intake Total 4109 Output Total 0 0 Balance 0 4109 Weight 54.1 kg 57.3 kg General appearance: PRESENT: no acute distress, well-developed, well-nourished Head exam: PRESENT: atraumatic, normocephalic Eye exam: PRESENT: conjunctiva pink, EOMI, PERRLA. ABSENT: scleral icterus Ear exam: PRESENT: normal external ear exam Mouth exam: PRESENT: moist, tongue midline Neck exam: PRESENT: full ROM. ABSENT: carotid bruit, JVD, lymphadenopathy, thyromegaly Respiratory exam: PRESENT: clear to auscultation keturah Cardiovascular exam: PRESENT: RRR. ABSENT: diastolic murmur, rubs, systolic murmur Vascular exam: PRESENT: normal capillary refill GI/Abdominal exam: PRESENT: hypoactive bowel sounds, soft. ABSENT: distended, guarding, mass, organolmegaly, rebound, tenderness Rectal exam: PRESENT: deferred Neurological exam: PRESENT: alert, awake, oriented to person, oriented to place, oriented to time, oriented to situation, CN II-XII grossly intact. ABSENT: motor sensory deficit Psychiatric exam: PRESENT: appropriate affect, normal mood. ABSENT: homicidal ideation, suicidal ideation Skin exam: PRESENT: dry, intact, warm. ABSENT: cyanosis, rash Results Laboratory Results: 10/06/18 06:25 10/06/18 06:25 10/05/18 10/05/18 10/06/18 17:18 23:10 06:25 WBC 5.7 RBC 4.54 Hgb 9.6 L Hct 30.4 L MCV 67 L MCH 21.1 L MCHC 31.5 L RDW 18.5 H Plt Count 193 Seg Neutrophils % Not Reportable Lymphocytes % Not Reportable Monocytes % Not Reportable Eosinophils % Not Reportable Basophils % Not Reportable Absolute Neutrophils Not Reportable Absolute Lymphocytes Not Reportable Absolute Monocytes Not Reportable Absolute Eosinophils Not Reportable Absolute Basophils Not Reportable Sodium Potassium Chloride Carbon Dioxide Anion Gap BUN Creatinine Est GFR ( Amer) Est GFR (Non-Af Amer) Glucose Calcium Magnesium PTH Intact 125.7 H Blood Type O POSITIVE Antibody Screen POSITIVE 10/06/18 06:25 WBC RBC Hgb Hct MCV MCH MCHC RDW Plt Count Seg Neutrophils % Lymphocytes % Monocytes % Eosinophils % Basophils % Absolute Neutrophils Absolute Lymphocytes Absolute Monocytes Absolute Eosinophils Absolute Basophils Sodium 134.8 L Potassium 4.3 Chloride 108 H Carbon Dioxide 16 L Anion Gap 11 BUN 40 H Creatinine 1.86 H Est GFR ( Amer) 32 L Est GFR (Non-Af Amer) 26 L Glucose 75 Calcium 9.0 Magnesium 2.0 PTH Intact Blood Type Antibody Screen Impressions: Renal Ultrasound 10/04/18 00:00 IMPRESSION: Essentially stable imaging appearance of multiple bilateral cysts relative to CT imaging performed 05/09/2018. No acute findings. Abdomen/Pelvis CT 10/05/18 00:00 IMPRESSION: There is a small bowel obstruction with loops measuring up to 4 cm with a transition point in the left mid abdomen. Given some of the appearance of bowel orientation and mesenteric appearance is difficult to exclude an internal hernia. There are multiple enlarged mesenteric masses throughout the abdomen and pelvis, some calcified and diminished size compared with the May 2018 exam. Chest X-Ray 10/05/18 08:00 IMPRESSION: NO SIGNIFICANT RADIOGRAPHIC FINDING IN THE CHEST. KUB X-Ray 10/05/18 09:00 IMPRESSION: Increasing small-bowel distention consistent with distal small- bowel obstruction. Ileus is thought to be less likely. Assessment & Plan - Diagnosis (1) Acute kidney injury Is this a current diagnosis for this admission?: Yes Plan: Continues to IV fluid (2) Hypercalcemia Is this a current diagnosis for this admission?: Yes Plan: Continues IV fluid (3) Small bowel obstruction Is this a current diagnosis for this admission?: Yes Plan: As per discussed with the surgery patient is going for the surgery for this SBO Discussed with the patient and the family on a bedside We will repeat the blood work EKG after the surgery - Time Time Spent with patient: 15-24 minutes Medications reviewed and adjusted accordingly: Yes Within: Other - Plan Summary Plan Summary: continue a current medications
[2018-10-06] MEDS ORDERED: FENTANYL CITRATE INJ/PF 100 MCG/2 ML AMPUL ONE ×2 (12:52→15:19)
[2018-10-06] MEDS ORDERED: MORPHINE SULFATE 10 MG/ML INJ ONE (12:53)
[2018-10-06] MEDS ORDERED: EPHEDRINE SULFATE INJ 50 MG/1 ML AMPULE ONE (12:53)
[2018-10-06] MEDS ORDERED: MIDAZOLAM 2 MG/2 ML INJ ONE (12:53)
[2018-10-06] MEDS ORDERED: ONDANSETRON HCL INJ/PF 4 MG/2 ML SDV ONE (12:53)
[2018-10-06] MEDS ORDERED: ACETAMINOPHEN 1,000 MG/100 ML RTUPB IV ONE (12:53)
[2018-10-06] MEDS ORDERED: DEXAMETHASONE SOD PHOSPHATE INJ 4 MG/1 ML VIAL ONE (12:53)
[2018-10-06] MEDS ORDERED: PROPOFOL INJ 200 MG/20 ML VIAL IV ONE (12:53)
[2018-10-06] MEDS ORDERED: BUPIVACAINE HCL 0.25 % INJ/PF (2.5 MG/1 ML) 30 ML VIAL ONE (13:25)
[2018-10-06] MEDS ORDERED: BUPIVACAINE HCL 0.5%-EPI 1:200000 INJ/PF 30 ML VIAL ONE (13:25)
[2018-10-06] MEDS ORDERED: CEFAZOLIN INJ 1 GM VIAL ONE (14:07)
[2018-10-06] MEDS ORDERED: METRONIDAZOLE 500 MG/NS RTU 500 MG/100 ML RTUPB IV ONE (14:09)
--- NOTE | 2018-10-06 14:50 | Operative Report ---
Nonrecallable Operative Report DATE OF SURGERY: 10/06/18 PREOPERATIVE DIAGNOSIS: small bowel obstruction POSTOPERATIVE DIAGNOSIS: small bowel obstruction OPERATION: exploratory laparotomy and lysis of adhesions and removal of multiple GIST masses SURGEON: TADEO HESS ANESTHESIA: GA TISSUE REMOVED OR ALTERED: gist multiple COMPLICATIONS: none ESTIMATED BLOOD LOSS: 25cc INTRAOPERATIVE FINDINGS: see dictation PROCEDURE: see dictation
[2018-10-06] MEDS ORDERED: PROMETHAZINE HCL INJ 25 MG/1 ML VIAL IV PRN ×2 (14:58)
[2018-10-06] MEDS ORDERED: ONDANSETRON HCL INJ/PF 4 MG/2 ML SDV IV PRN (14:58)
[2018-10-06] MEDS ORDERED: MORPHINE SULFATE 10 MG/ML INJ IV PRN (14:58)
[2018-10-06] MEDS: FENTANYL CITRATE INJ/PF 100 MCG/2 ML AMPUL IV PRN ×2 (14:58→15:33)
[2018-10-06] MEDS ORDERED: MEPERIDINE HCL/PF INJ 25 MG/1 ML DISP.SYRIN IV PRN (14:58)
[2018-10-06] MEDS ORDERED: FENTANYL CITRATE INJ/PF 100 MCG/2 ML AMPUL IV PRN ×2 (14:58)
[2018-10-06] MEDS ORDERED: OXYCODONE-ACETAMINOPHEN 5-325 MG TABLET PO PRN ×2 (14:58)
[2018-10-06] MEDS ORDERED: DIPHENHYDRAMINE HCL 50 MG/ML VIAL IV PRN (14:58)
[2018-10-06] MEDS ORDERED: PHARMACY COMMUNICATION ORDER MC NR (15:45)
[2018-10-06] MEDS: POTASSI CL 20 MEQ/D5-1/2NS 1L 1,000 ML IV PRN (16:53)
[2018-10-06] MEDS: MORPHINE SULFATE 10 MG/ML INJ IV PRN (17:37)
--- NOTE | 2018-10-06 23:14 | OPERATIVE REPORT E ---
Operative Report NAME: SAHRA GOMEZ : 1940 AGE: 78Y DATE OF SURGERY: 10/06/2018 ROOM: 336 PREOPERATIVE DIAGNOSIS: SMALL BOWEL OBSTRUCTION. POSTOPERATIVE DIAGNOSIS: SMALL BOWEL OBSTRUCTION SECONDARY TO ADHESIONS AND GASTROINTESTINAL STROMAL TUMOR (GIST) MASSES. OPERATION: Exploratory laparotomy with lysis of adhesions and removal of multiple gastrointestinal stromal tumor (GIST) masses. SURGEON: TADEO HESS M.D. 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 However, has been noncompliant. She presents last night with a complete small bowel obstruction with a possible internal hernia noted on CT scan and, therefore, brought to surgery for this procedure. PROCEDURE IN DETAIL: The patient was brought to the operating room in an awake, alert, and stable condition. Placed on the operating room table in the supine position. Induced under general anesthesia, intubated. The abdomen was prepped and draped in the usual sterile fashion for the procedure. After appropriate timeout a midline incision was used from just above the umbilicus to just below it. Dissection carried down through subcutaneous tissue with Bovie cautery. We entered the midline fascia with the Bovie cautery. Once into the midline fascia the small bowel appeared to be relatively free, however, there were significant omental adhesions to the anterior abdominal wall, which were taken down with sharp and blunt dissection using Metzenbaum scissors and cautery. Once we reduced all the omentum away from the anterior abdominal wall I was able to eviscerate the bowel. Once I did that I noted the small bowel had numerous cauliflower like masses coming off the mesentery as well as the serosa itself. They were numerous and they extended all the way from the ligament of Treitz to the terminal ileum. At one point in the distal small bowel there was 1 pedunculated type lesion that was adhesed to the right pelvic sidewall because it had become necrotic secondary to becoming ischemic because of twisting and strangulating itself. Because of this it had adhesed itself to the right lower quadrant and a loop of bowel had migrated underneath that adhesive band creating a bowel obstruction. We dissected the mass off the right lower quadrant with Bovie cautery and then divided the band that had captured the small bowel. Once this was done the proximal dilated bowel decompressed into the distal nondilated bowel and then into the cecum. I removed a number of other small masses that were pedunculated coming off the mesentery with Bovie cautery. Once that was completed I milked the small bowel contents from the ligament of Treitz all the way through the length of the small bowel into the terminal ileum making sure that we do not have any leaks or serosal injuries. We then returned the small bowel back into the abdominal cavity and covered it up with the omentum and then closed the midline fascia with a running 0-double looped PDS suture and closed the skin with standard skin clips. This completed the procedure. Estimated blood loss was less than 25 mL. Sponge and needle counts were correct x2. The patient was awakened in the operating room, extubated, transferred to recovery in stable condition. No complications. DICTATING PHYSICIAN: TADEO HESS M.D. [id number] PHY#: [id number] ID: [id number] JOB#: [id number] ACCT: [id number] cc:TADEO HESS M.D. >
--- NOTE | 2018-10-06 23:50 | RADIOLOGY REPORT (SQ) ---
EXAM DESCRIPTION: XR ABDOMEN 1 VIEW (KUB) COMPLETED DATE/TME: 10/06/2018 15:45 CLINICAL HISTORY: 78 years, Female, Check Placement of NG Tube COMPARISON: 10/05/2018 abdomen NUMBER OF VIEWS: 1 TECHNIQUE: Upright portable abdomen LIMITATIONS: None. FINDINGS: No free air under the hemidiaphragms. Enteric tube with the tip likely in the body of the stomach. Surgical clips right upper quadrant. Air-filled loops of large and small bowel. IMPRESSION: Tip of the enteric tube likely in the body of the stomach copyright 2010 [employer] All Rights Reserved
[2018-10-07] MEDS ORDERED: POTASSI CL 20 MEQ/D5-1/2NS 1L 1,000 ML IV ONE (03:28)
[2018-10-07] MEDS: POTASSI CL 20 MEQ/D5-1/2NS 1L 1,000 ML IV PRN ×2 (04:06→14:17)
[2018-10-07] MEDS: MORPHINE SULFATE 10 MG/ML INJ IV PRN ×3 (04:21→17:00)
[2018-10-07 05:11] LABS: APPEARANCE,URINE SLIGHTLY-CLOUDY; BILIRUBIN,URINE NEGATIVE (NEGATIVE); COLOR,URINE YELLOW; GLUCOSE, URINE NEGATIVE (NEGATIVE); KETONES,URINE TRACE mg/dL (NEGATIVE); LEUKOCYTE ESTERASE,URINE TRACE (NEGATIVE); NITRITE,URINE NEGATIVE (NEGATIVE); PROTEIN,URINE NEGATIVE (NEGATIVE); URINE SPECIFIC GRAVITY 1.013; UROBILINOGEN,URINE NEGATIVE mg/dL (<2.0)
--- NOTE | 2018-10-07 09:08 | PDOC PROGRESS REPORT ---
Subjective Progress Note for:: 10/07/18 Subjective:: thirsty Reason For Visit: ACUTE KIDNEY INJURY Physical Exam Vital Signs: Temp Pulse Resp BP Pulse Ox 97.9 F 59 L 16 162/78 H 99 10/07/18 08:10 10/07/18 08:10 10/07/18 08:10 10/07/18 08:10 10/07/18 08:10 Intake & Output 10/06/18 10/07/18 10/08/18 06:59 06:59 06:59 Intake Total 4109 4030 Output Total 0 480 Balance 4109 3550 Weight 57.3 kg General appearance: PRESENT: no acute distress Head exam: PRESENT: normocephalic Eye exam: PRESENT: EOMI Ear exam: PRESENT: TM's normal bilaterally Mouth exam: PRESENT: moist Neck exam: PRESENT: full ROM Respiratory exam: PRESENT: clear to auscultation keturah Cardiovascular exam: PRESENT: RRR Pulses: PRESENT: normal radial pulses, normal femoral pulses Vascular exam: PRESENT: normal capillary refill GI/Abdominal exam: PRESENT: hypoactive bowel sounds, soft Rectal exam: PRESENT: deferred Extremities exam: PRESENT: full ROM Musculoskeletal exam: PRESENT: full ROM Neurological exam: PRESENT: alert, awake, oriented to person, oriented to place Psychiatric exam: PRESENT: appropriate affect Skin exam: PRESENT: dry Results Laboratory Results: 10/06/18 06:25 10/06/18 06:25 10/07/18 04:52 Urine Color YELLOW Urine Appearance SLIGHTLY-CLOUDY Urine pH 5.0 Ur Specific [place] 1.013 Urine Protein NEGATIVE Urine Glucose (UA) NEGATIVE Urine Ketones TRACE H Urine Blood SMALL H Urine Nitrite NEGATIVE Ur Leukocyte Esterase TRACE H Urine WBC (Auto) 2 Urine RBC (Auto) 1 Impressions: Renal Ultrasound 10/04/18 00:00 IMPRESSION: Essentially stable imaging appearance of multiple bilateral cysts relative to CT imaging performed 05/09/2018. No acute findings. Abdomen/Pelvis CT 10/05/18 00:00 IMPRESSION: There is a small bowel obstruction with loops measuring up to 4 cm with a transition point in the left mid abdomen. Given some of the appearance of bowel orientation and mesenteric appearance is difficult to exclude an internal hernia. There are multiple enlarged mesenteric masses throughout the abdomen and pelvis, some calcified and diminished size compared with the May 2018 exam. Chest X-Ray 10/05/18 08:00 IMPRESSION: NO SIGNIFICANT RADIOGRAPHIC FINDING IN THE CHEST. KUB X-Ray 10/06/18 15:45 IMPRESSION: Tip of the enteric tube likely in the body of the stomach copyright 2011 [employer]- All Rights Reserved Assessment & Plan - Diagnosis (1) Abdominal pain Qualifiers: Abdominal location: generalized Qualified Code(s): R10.84 - Generalized abdominal pain Is this a current diagnosis for this admission?: Yes (2) GIST (gastrointestinal stromal tumor), malignant Qualifiers: Malignant gastrointestinal stromal tumor location: small intestine Qualified Code(s): C49.A3 - Gastrointestinal stromal tumor of small intestine Is this a current diagnosis for this admission?: Yes (3) Small bowel obstruction Is this a current diagnosis for this admission?: Yes - Plan Summary Plan Summary: s/p exploratory laparotomy for lyis of adhesions for sbo pt with metastatic GIST. had resection of a number of masses to release sbo this am improved ng in place. pt encouraged to get out of bed cont ng for now awaiting return of bowel function
[2018-10-07 10:21] LABS: ABSOLUTE BASOPHILS # (AUTO) 0.1 10^3/uL (0.0-0.2); ABSOLUTE LYMPHOCYTES (AUTO) 0.4 10^3/uL (0.5-4.7); ABSOLUTE MONOCYTES (AUTO) 0.9 10^3/uL (0.1-1.4); ABSOLUTE NEUT (AUTO) 6.4 10^3/uL (1.7-8.2); BASOPHILS % (AUTO) 0.9 % (0-2); HEMATOCRIT 28.6 % (36.0-47.0); HEMOGLOBIN 9.1 g/dL (12.0-15.5); LYMPHOCYTES % (AUTO) 5.4 % (13-45); MEAN CORPUSCULAR HEMOGLOBIN 21.1 pg (27.0-33.4); MEAN CORPUSCULAR HGB CONC 31.8 g/dL (32.0-36.0); MEAN CORPUSCULAR VOLUME 67 fl (80-97); MONOCYTES % (AUTO) 11.9 % (3-13); RED BLOOD COUNT 4.29 10^6/uL (3.72-5.28); RED CELL DISTRIBUTION WIDTH 18.6 % (11.5-14.0); SEGMENTED NEUTROPHILS % (AUTO) 81.8 % (42-78); TOTAL CELLS COUNTED % (AUTO) 100 %; WHITE BLOOD COUNT 7.9 10^3/uL (4.0-10.5)
[2018-10-07 10:28] LABS: ALANINE AMINOTRANSFERASE 24 U/L (9-52); ALBUMIN 3.1 g/dL (3.5-5.0); ALKALINE PHOSPHATASE 76 U/L (38-126); ANION GAP 8 (5-19); ASPARTATE AMINO TRANSFERASE 30 U/L (14-36); BILIRUBIN,DIRECT 0.3 mg/dL (0.0-0.4); BILIRUBIN,TOTAL 0.7 mg/dL (0.2-1.3); BLOOD UREA NITROGEN 31 mg/dL (7-20); CALCIUM 9.1 mg/dL (8.4-10.2); CARBON DIOXIDE 19 mmol/L (22-30); CHLORIDE 111 mmol/L (98-107); GLUCOSE 131 mg/dL (75-110); SODIUM 137.8 mmol/L (137-145); TOTAL PROTEIN 5.2 g/dL (6.3-8.2)
--- NOTE | 2018-10-07 10:42 | PDOC PROGRESS REPORT ---
Subjective Progress Note for:: 10/07/18 Subjective:: Patient underwent further expiratory laparotomy and resection of the gastric tumor sites and relieve the small bowel obstructions Patient is currently doing fair Denied any chest pain to than any shortness of the breath Abdominal pain and surgical site is currently under control Discussed with the surgery patient is doing well Patient is walking the hallway Reason For Visit: ACUTE KIDNEY INJURY Physical Exam Vital Signs: Temp Pulse Resp BP Pulse Ox 97.9 F 59 L 16 162/78 H 99 10/07/18 08:10 10/07/18 08:10 10/07/18 08:10 10/07/18 08:10 10/07/18 08:10 Intake & Output 10/06/18 10/07/18 10/08/18 06:59 06:59 06:59 Intake Total 4109 4030 Output Total 0 480 Balance 4109 3550 Weight 57.3 kg General appearance: PRESENT: no acute distress, well-developed, well-nourished Head exam: PRESENT: atraumatic, normocephalic Eye exam: PRESENT: conjunctiva pink, EOMI, PERRLA. ABSENT: scleral icterus Ear exam: PRESENT: normal external ear exam Mouth exam: PRESENT: moist, tongue midline Neck exam: PRESENT: full ROM. ABSENT: carotid bruit, JVD, lymphadenopathy, thyromegaly Respiratory exam: PRESENT: clear to auscultation [place] Cardiovascular exam: PRESENT: RRR. ABSENT: diastolic murmur, rubs, systolic murmur Vascular exam: PRESENT: normal capillary refill GI/Abdominal exam: ABSENT: distended, guarding, mass, organolmegaly, rebound, tenderness Additonal comments: Surgical dressing is intact Rectal exam: PRESENT: deferred Neurological exam: PRESENT: alert, awake, oriented to person, oriented to place, oriented to time, oriented to situation, CN II-XII grossly intact. ABSENT: motor sensory deficit Psychiatric exam: PRESENT: appropriate affect, normal mood. ABSENT: homicidal ideation, suicidal ideation Skin exam: PRESENT: dry, intact, warm. ABSENT: cyanosis, rash Results Laboratory Results: 10/07/18 09:55 10/07/18 10/07/18 04:52 09:55 Sodium 137.8 Potassium 5.0 Chloride 111 H Carbon Dioxide 19 L Anion Gap 8 BUN 31 H Creatinine 1.28 H Est GFR ( Amer) 49 L Est GFR (Non-Af Amer) 41 L Glucose 131 H Calcium 9.1 Total Bilirubin 0.7 AST 30 ALT 24 Alkaline Phosphatase 76 Total Protein 5.2 L Albumin 3.1 L Urine Color YELLOW Urine Appearance SLIGHTLY-CLOUDY Urine pH 5.0 Ur Specific [place] 1.013 Urine Protein NEGATIVE Urine Glucose (UA) NEGATIVE Urine Ketones TRACE H Urine Blood SMALL H Urine Nitrite NEGATIVE Ur Leukocyte Esterase TRACE H Urine WBC (Auto) 2 Urine RBC (Auto) 1 Impressions: Renal Ultrasound 10/04/18 00:00 IMPRESSION: Essentially stable imaging appearance of multiple bilateral cysts relative to CT imaging performed 05/09/2018. No acute findings. Abdomen/Pelvis CT 10/05/18 00:00 IMPRESSION: There is a small bowel obstruction with loops measuring up to 4 cm with a transition point in the left mid abdomen. Given some of the appearance of bowel orientation and mesenteric appearance is difficult to exclude an internal hernia. There are multiple enlarged mesenteric masses throughout the abdomen and pelvis, some calcified and diminished size compared with the May 2018 exam. Chest X-Ray 10/05/18 08:00 IMPRESSION: NO SIGNIFICANT RADIOGRAPHIC FINDING IN THE CHEST. KUB X-Ray 10/06/18 15:45 IMPRESSION: Tip of the enteric tube likely in the body of the stomach copyright 2011 [employer]- All Rights Reserved Assessment & Plan - Diagnosis (1) Acute kidney injury Is this a current diagnosis for this admission?: Yes Plan: all stable (2) Hypercalcemia Is this a current diagnosis for this admission?: Yes (3) Small bowel obstruction Is this a current diagnosis for this admission?: Yes Plan: Status post expiratory laparotomy postop day #1 (4) GIST (gastrointestinal stromal tumor), malignant Qualifiers: Malignant gastrointestinal stromal tumor location: small intestine Qualified Code(s): C49.A3 - Gastrointestinal stromal tumor of small intestine Is this a current diagnosis for this admission?: Yes - Time Time Spent with patient: 15-24 minutes Medications reviewed and adjusted accordingly: Yes Anticipated discharge: Other Within: Other - Plan Summary Plan Summary: Continues to current medication
[2018-10-07 10:45] LABS: PLATELET COUNT 204 10^3/uL (150-450)
[2018-10-07] MEDS: ENALAPRILAT DIHYDRATE INJ/PF 1.25 MG/1 ML SDV IV PRN (16:06)
[2018-10-08] MEDS: MORPHINE SULFATE 10 MG/ML INJ IV PRN ×5 (00:34→17:11)
[2018-10-08] MEDS: POTASSI CL 20 MEQ/D5-1/2NS 1L 1,000 ML IV PRN ×3 (01:13→22:49)
[2018-10-08] MEDS: ENALAPRILAT DIHYDRATE INJ/PF 1.25 MG/1 ML SDV IV PRN (04:42)
[2018-10-08] MEDS: HYDROMORPHONE HCL INJ/PF 2 MG/ML AMPULE IV PRN ×5 (05:10→20:24)
[2018-10-08 07:02] LABS: ANION GAP 9 (5-19); BLOOD UREA NITROGEN 21 mg/dL (7-20); CARBON DIOXIDE 22 mmol/L (22-30); CHLORIDE 109 mmol/L (98-107); GLUCOSE 118 mg/dL (75-110); POTASSIUM 4.5 mmol/L (3.6-5.0); SODIUM 140.4 mmol/L (137-145)
[2018-10-08] MEDS: LORAZEPAM INJ 2 MG/1 ML VIAL IV PRN ×3 (08:48→19:22)
--- NOTE | 2018-10-08 09:37 | PDOC PROGRESS REPORT ---
Subjective Progress Note for:: 10/08/18 Subjective:: feels ok this am some incisional pain Reason For Visit: ACUTE KIDNEY INJURY Physical Exam Vital Signs: Temp Pulse Resp BP Pulse Ox 98.2 F 82 20 169/66 H 88 L 10/08/18 07:48 10/08/18 07:48 10/08/18 07:48 10/08/18 07:48 10/08/18 07:48 Intake & Output 10/07/18 10/08/18 10/09/18 06:59 06:59 06:59 Intake Total 4030 1999 Output Total 480 5 Balance 3550 -35 Weight 56.1 kg General appearance: PRESENT: no acute distress Eye exam: PRESENT: EOMI Mouth exam: PRESENT: moist Neck exam: PRESENT: full ROM Respiratory exam: PRESENT: clear to auscultation [place] Cardiovascular exam: PRESENT: RRR Pulses: PRESENT: normal radial pulses, normal femoral pulses GI/Abdominal exam: PRESENT: hypoactive bowel sounds, soft Rectal exam: PRESENT: deferred Extremities exam: PRESENT: full ROM Musculoskeletal exam: PRESENT: full ROM Neurological exam: PRESENT: alert, awake, oriented to person, oriented to place Psychiatric exam: PRESENT: appropriate affect Skin exam: PRESENT: dry Results Laboratory Results: 10/07/18 09:55 10/08/18 06:18 10/07/18 10/07/18 10/08/18 09:55 09:55 06:18 WBC 7.9 RBC 4.29 Hgb 9.1 L Hct 28.6 L MCV 67 L MCH 21.1 L MCHC 31.8 L RDW 18.6 H Plt Count 204 Seg Neutrophils % 81.8 H Lymphocytes % 5.4 L Monocytes % 11.9 Eosinophils % 0.0 Basophils % 0.9 Absolute Neutrophils 6.4 Absolute Lymphocytes 0.4 L Absolute Monocytes 0.9 Absolute Eosinophils 0.0 Absolute Basophils 0.1 Sodium 137.8 140.4 Potassium 5.0 4.5 Chloride 111 H 109 H Carbon Dioxide 19 L 22 Anion Gap 8 9 BUN 31 H 21 H Creatinine 1.28 H 0.99 Est GFR ( Amer) 49 L > 60 Est GFR (Non-Af Amer) 41 L 55 L Glucose 131 H 118 H Calcium 9.1 10.0 Total Bilirubin 0.7 AST 30 ALT 24 Alkaline Phosphatase 76 Total Protein 5.2 L Albumin 3.1 L Impressions: Renal Ultrasound 10/04/18 00:00 IMPRESSION: Essentially stable imaging appearance of multiple bilateral cysts relative to CT imaging performed 05/09/2018. No acute findings. Abdomen/Pelvis CT 10/05/18 00:00 IMPRESSION: There is a small bowel obstruction with loops measuring up to 4 cm with a transition point in the left mid abdomen. Given some of the appearance of bowel orientation and mesenteric appearance is difficult to exclude an internal hernia. There are multiple enlarged mesenteric masses throughout the abdomen and pelvis, some calcified and diminished size compared with the May 2018 exam. Chest X-Ray 10/05/18 08:00 IMPRESSION: NO SIGNIFICANT RADIOGRAPHIC FINDING IN THE CHEST. KUB X-Ray 10/06/18 15:45 IMPRESSION: Tip of the enteric tube likely in the body of the stomach copyright 2011 [employer]- All Rights Reserved Assessment & Plan - Diagnosis (1) Abdominal pain Qualifiers: Abdominal location: generalized Qualified Code(s): R10.84 - Generalized abdominal pain Is this a current diagnosis for this admission?: Yes (2) GIST (gastrointestinal stromal tumor), malignant Qualifiers: Malignant gastrointestinal stromal tumor location: small intestine Qualified Code(s): C49.A3 - Gastrointestinal stromal tumor of small intestine Is this a current diagnosis for this admission?: Yes (3) Small bowel obstruction Is this a current diagnosis for this admission?: Yes - Plan Summary Plan Summary: s/p exploratory lap for sbo due to metastatic GIST doing ok this am ng in place 800cc output last pm plan out of bed awaiting return of bowel function.
[2018-10-08] MEDS: ONDANSETRON HCL INJ/PF 4 MG/2 ML SDV IV PRN (10:49)
[2018-10-08] MEDS ORDERED: PROMETHAZINE HCL INJ 25 MG/1 ML VIAL ONE (15:37)
--- NOTE | 2018-10-08 19:52 | PDOC PROGRESS REPORT ---
Subjective Progress Note for:: 10/08/18 Subjective:: Patient seen by the bedside, she underwent laparotomy for small bowel obstruction, NG tube in place Reason For Visit: ACUTE KIDNEY INJURY Physical Exam Vital Signs: Temp Pulse Resp BP Pulse Ox 97.3 F 92 20 178/78 H 93 10/08/18 16:59 10/08/18 16:59 10/08/18 16:59 10/08/18 16:59 10/08/18 16:59 Intake & Output 10/07/18 10/08/18 10/09/18 06:59 06:59 06:59 Intake Total 4030 2000 970 Output Total 480 2035 1075 Balance 3550 -35 -105 Weight 56.1 kg General appearance: PRESENT: no acute distress Eye exam: PRESENT: PERRLA Respiratory exam: PRESENT: clear to auscultation [place] Cardiovascular exam: PRESENT: +S1, +S2 GI/Abdominal exam: PRESENT: soft Neurological exam: PRESENT: alert Results Laboratory Results: 10/07/18 09:55 10/08/18 06:18 10/08/18 06:18 Sodium 140.4 Potassium 4.5 Chloride 109 H Carbon Dioxide 22 Anion Gap 9 BUN 21 H Creatinine 0.99 Est GFR ( Amer) > 60 Est GFR (Non-Af Amer) 55 L Glucose 118 H Calcium 10.0 Impressions: Renal Ultrasound 10/04/18 00:00 IMPRESSION: Essentially stable imaging appearance of multiple bilateral cysts relative to CT imaging performed 05/09/2018. No acute findings. Abdomen/Pelvis CT 10/05/18 00:00 IMPRESSION: There is a small bowel obstruction with loops measuring up to 4 cm with a transition point in the left mid abdomen. Given some of the appearance of bowel orientation and mesenteric appearance is difficult to exclude an internal hernia. There are multiple enlarged mesenteric masses throughout the abdomen and pelvis, some calcified and diminished size compared with the May 2018 exam. Chest X-Ray 10/05/18 08:00 IMPRESSION: NO SIGNIFICANT RADIOGRAPHIC FINDING IN THE CHEST. KUB X-Ray 10/06/18 15:45 IMPRESSION: Tip of the enteric tube likely in the body of the stomach copyright 2010 [employer]- All Rights Reserved Assessment & Plan - Diagnosis (1) Acute kidney injury Is this a current diagnosis for this admission?: Yes Plan: Resolved with hydration (2) Hypercalcemia Is this a current diagnosis for this admission?: Yes (3) Gastrointestinal stromal tumor (GIST) Is this a current diagnosis for this admission?: Yes (4) Small bowel obstruction Is this a current diagnosis for this admission?: Yes Plan: Status post laparotomy, small bowel obstruction due to adhesions
[2018-10-09] MEDS: HYDROMORPHONE HCL INJ/PF 2 MG/ML AMPULE IV PRN ×7 (04:31→22:32)
[2018-10-09] MEDS: LORAZEPAM INJ 2 MG/1 ML VIAL IV PRN ×6 (07:46→22:35)
[2018-10-09] MEDS ORDERED: 1/2 NORMAL SALINE 1,000 ML IV ONE (11:19)
--- NOTE | 2018-10-09 11:19 | PDOC PROGRESS REPORT ---
Subjective Progress Note for:: 10/09/18 Subjective:: feels "like I'm gonna " Reason For Visit: ACUTE KIDNEY INJURY Physical Exam Vital Signs: Temp Pulse Resp BP Pulse Ox 98.3 F 83 16 145/70 H 92 10/09/18 07:18 10/09/18 07:18 10/09/18 07:18 10/09/18 07:18 10/09/18 07:18 Intake & Output 10/08/18 10/09/18 10/10/18 06:59 06:59 06:59 Intake Total 1999 1969 Output Total 2235 1375 Balance -235 595 Weight 56.1 kg General appearance: PRESENT: mild distress Head exam: PRESENT: normocephalic Eye exam: PRESENT: EOMI Mouth exam: PRESENT: moist Neck exam: PRESENT: full ROM Respiratory exam: PRESENT: decreased breath sounds, rhonchi Cardiovascular exam: PRESENT: RRR, tachycardia Pulses: PRESENT: normal radial pulses, normal femoral pulses, normal dorsalis pedis pul Vascular exam: PRESENT: normal capillary refill GI/Abdominal exam: PRESENT: distended, hyperactive bowel sounds, other - incision dry Rectal exam: PRESENT: deferred Extremities exam: PRESENT: full ROM Musculoskeletal exam: PRESENT: full ROM Neurological exam: PRESENT: alert, awake Skin exam: PRESENT: dry Results Laboratory Results: 10/07/18 09:55 10/08/18 06:18 10/07/18 04:52 Clean Catch Midstream Urine Culture - Final NO GROWTH 2 DAYS Impressions: Renal Ultrasound 10/04/18 00:00 IMPRESSION: Essentially stable imaging appearance of multiple bilateral cysts relative to CT imaging performed 05/09/2018. No acute findings. Abdomen/Pelvis CT 10/05/18 00:00 IMPRESSION: There is a small bowel obstruction with loops measuring up to 4 cm with a transition point in the left mid abdomen. Given some of the appearance of bowel orientation and mesenteric appearance is difficult to exclude an internal hernia. There are multiple enlarged mesenteric masses throughout the abdomen and pelvis, some calcified and diminished size compared with the May 2018 exam. Chest X-Ray 10/05/18 08:00 IMPRESSION: NO SIGNIFICANT RADIOGRAPHIC FINDING IN THE CHEST. KUB X-Ray 10/06/18 15:45 IMPRESSION: Tip of the enteric tube likely in the body of the stomach copyright 2010 [employer]- All Rights Reserved Assessment & Plan - Diagnosis (1) Abdominal pain Qualifiers: Abdominal location: generalized Qualified Code(s): R10.84 - Generalized abdominal pain Is this a current diagnosis for this admission?: Yes (2) GIST (gastrointestinal stromal tumor), malignant Qualifiers: Malignant gastrointestinal stromal tumor location: small intestine Qualified Code(s): C49.A3 - Gastrointestinal stromal tumor of small intestine Is this a current diagnosis for this admission?: Yes (3) Small bowel obstruction Is this a current diagnosis for this admission?: Yes - Plan Summary Plan Summary: pt c/o nausea, cramping pulled out her ng tube this am no flatus or stool wound clean dry plan- reinsert ng iv bolus labs.
[2018-10-09] MEDS ORDERED: PHARMACY COMMUNICATION ORDER MC NR (11:30)
[2018-10-09 12:43] LABS: HEMOGLOBIN 10.1 g/dL (12.0-15.5); MEAN CORPUSCULAR HGB CONC 31.6 g/dL (32.0-36.0); MEAN CORPUSCULAR VOLUME 67 fl (80-97); PLATELET COUNT 220 10^3/uL (150-450); RED CELL DISTRIBUTION WIDTH 19.1 % (11.5-14.0); WHITE BLOOD COUNT 8.3 10^3/uL (4.0-10.5)
[2018-10-09 13:11] LABS: ANION GAP 9 (5-19); BLOOD UREA NITROGEN 14 mg/dL (7-20); CARBON DIOXIDE 23 mmol/L (22-30); CHLORIDE 107 mmol/L (98-107); GLUCOSE 122 mg/dL (75-110); POTASSIUM 4.6 mmol/L (3.6-5.0); SODIUM 138.8 mmol/L (137-145)
[2018-10-09 13:15] LABS: ABSOLUTE LYMPHOCYTES# (MANUAL) 0.7 10^3/uL (0.5-4.7); ABSOLUTE MONOCYTES # (MANUAL) 0.6 10^3/uL (0.1-1.4); ABSOLUTE NEUTROPHILS# (MANUAL) 6.9 10^3/uL (1.7-8.2); BASOPHILS % (MANUAL) 0 % (0-2); EOSINOPHILS % (MANUAL) 1 % (0-6); LYMPHOCYTES % (MANUAL) 9 % (13-45); MONOCYTES % (MANUAL) 7 % (3-13); NUCLEATED RED BLOOD CELLS 2 /100 WBC (0); SEGMENTED NEUTROPHILS % (MAN) 83 % (42-78); TOTAL CELLS COUNTED 100
[2018-10-09 13:21] LABS: ANISOCYTOSIS 2+; HYPOCHROMASIA 1+; OVALOCYTES 2+; PLATELET COMMENT ADEQUATE; POIKILOCYTOSIS 2+; POLYCHROMASIA 1+; SCHISTOCYTES 1+; TARGET CELLS 1+; TEAR DROP CELLS 1+
[2018-10-09] MEDS: ONDANSETRON HCL INJ/PF 4 MG/2 ML SDV IV PRN (16:44)
[2018-10-09] MEDS ORDERED: DIPHENHYDRAMINE HCL 50 MG/ML VIAL ONE (18:26)
--- NOTE | 2018-10-09 20:55 | PDOC PROGRESS REPORT ---
Subjective Progress Note for:: 10/09/18 Subjective:: Patient seen by the bedside, she is very drowsy, she pulled the NG tube, there is no bowel movement, she still a full code, she has very severe COPD, the Dilaudid is too frequent she is on every hour, this will be changed to every 4 hours Reason For Visit: ACUTE KIDNEY INJURY Physical Exam Vital Signs: Temp Pulse Resp BP Pulse Ox 98.1 F 101 H 16 197/99 H 97 10/09/18 15:56 10/09/18 15:56 10/09/18 15:56 10/09/18 15:56 10/09/18 15:56 Intake & Output 10/08/18 10/09/18 10/10/18 06:59 06:59 06:59 Intake Total 1999 1969 Output Total 2235 1375 325 Balance -235 595 -325 Weight 56.1 kg General appearance: PRESENT: no acute distress Respiratory exam: PRESENT: clear to auscultation keturah Cardiovascular exam: PRESENT: +S1, +S2 GI/Abdominal exam: PRESENT: soft, tenderness Neurological exam: PRESENT: alert, CN II-XII grossly intact Results Laboratory Results: 10/09/18 12:30 10/09/18 12:30 10/09/18 10/09/18 12:30 12:30 WBC 8.3 RBC 4.80 Hgb 10.1 L Hct 32.0 L MCV 67 L MCH 21.0 L MCHC 31.6 L RDW 19.1 H Plt Count 220 Seg Neutrophils % Not Reportable Lymphocytes % Not Reportable Monocytes % Not Reportable Eosinophils % Not Reportable Basophils % Not Reportable Absolute Neutrophils Not Reportable Absolute Lymphocytes Not Reportable Absolute Monocytes Not Reportable Absolute Eosinophils Not Reportable Absolute Basophils Not Reportable Sodium 138.8 Potassium 4.6 Chloride 107 Carbon Dioxide 23 Anion Gap 9 BUN 14 Creatinine 0.83 Est GFR ( Amer) > 60 Est GFR (Non-Af Amer) > 60 Glucose 122 H Calcium 10.0 10/04/18 19:00 Blood Blood Culture - Final NO GROWTH IN 5 DAYS 10/07/18 04:52 Clean Catch Midstream Urine Culture - Final NO GROWTH 2 DAYS Impressions: Renal Ultrasound 10/04/18 00:00 IMPRESSION: Essentially stable imaging appearance of multiple bilateral cysts relative to CT imaging performed 05/09/2018. No acute findings. Abdomen/Pelvis CT 10/05/18 00:00 IMPRESSION: There is a small bowel obstruction with loops measuring up to 4 cm with a transition point in the left mid abdomen. Given some of the appearance of bowel orientation and mesenteric appearance is difficult to exclude an internal hernia. There are multiple enlarged mesenteric masses throughout the abdomen and pelvis, some calcified and diminished size compared with the May 2018 exam. Chest X-Ray 10/05/18 08:00 IMPRESSION: NO SIGNIFICANT RADIOGRAPHIC FINDING IN THE CHEST. KUB X-Ray 10/06/18 15:45 IMPRESSION: Tip of the enteric tube likely in the body of the stomach copyright 2011 [employer]- All Rights Reserved Assessment & Plan - Diagnosis (1) Acute kidney injury Is this a current diagnosis for this admission?: Yes Plan: Resolved (2) Hypercalcemia Is this a current diagnosis for this admission?: Yes (3) Gastrointestinal stromal tumor (GIST) Is this a current diagnosis for this admission?: Yes (4) Small bowel obstruction Is this a current diagnosis for this admission?: Yes
[2018-10-10] MEDS: POTASSI CL 20 MEQ/D5-1/2NS 1L 1,000 ML IV PRN ×3 (01:01→22:40)
[2018-10-10] MEDS: LORAZEPAM INJ 2 MG/1 ML VIAL IV PRN ×2 (02:51→20:32)
[2018-10-10] MEDS: HYDROMORPHONE HCL INJ/PF 2 MG/ML AMPULE IV PRN ×2 (04:28→23:10)
--- NOTE | 2018-10-10 07:55 | PDOC PROGRESS REPORT ---
Subjective Progress Note for:: 10/10/18 Reason For Visit: ACUTE KIDNEY INJURY Physical Exam Vital Signs: Temp Pulse Resp BP Pulse Ox 97.9 F 82 15 138/77 H 96 10/10/18 03:25 10/10/18 03:25 10/10/18 03:25 10/10/18 03:25 10/10/18 03:25 Intake & Output 10/09/18 10/10/18 10/11/18 06:59 06:59 06:59 Intake Total 1970 1000 Output Total 1375 690 Balance 595 310 General appearance: PRESENT: other - sleeping Head exam: PRESENT: normocephalic Respiratory exam: PRESENT: clear to auscultation keturah Cardiovascular exam: PRESENT: RRR Pulses: PRESENT: normal radial pulses, normal femoral pulses GI/Abdominal exam: PRESENT: soft, other - wound clean Rectal exam: PRESENT: deferred Results Laboratory Results: 10/09/18 12:30 10/09/18 12:30 10/09/18 10/09/18 12:30 12:30 WBC 8.3 RBC 4.80 Hgb 10.1 L Hct 32.0 L MCV 67 L MCH 21.0 L MCHC 31.6 L RDW 19.1 H Plt Count 220 Seg Neutrophils % Not Reportable Lymphocytes % Not Reportable Monocytes % Not Reportable Eosinophils % Not Reportable Basophils % Not Reportable Absolute Neutrophils Not Reportable Absolute Lymphocytes Not Reportable Absolute Monocytes Not Reportable Absolute Eosinophils Not Reportable Absolute Basophils Not Reportable Sodium 138.8 Potassium 4.6 Chloride 107 Carbon Dioxide 23 Anion Gap 9 BUN 14 Creatinine 0.83 Est GFR ( Amer) > 60 Est GFR (Non-Af Amer) > 60 Glucose 122 H Calcium 10.0 10/04/18 21:20 Blood Blood Culture - Final NO GROWTH IN 5 DAYS 10/04/18 19:00 Blood Blood Culture - Final NO GROWTH IN 5 DAYS 10/07/18 04:52 Clean Catch Midstream Urine Culture - Final NO GROWTH 2 DAYS Impressions: Renal Ultrasound 10/04/18 00:00 IMPRESSION: Essentially stable imaging appearance of multiple bilateral cysts relative to CT imaging performed 05/09/2018. No acute findings. Abdomen/Pelvis CT 10/05/18 00:00 IMPRESSION: There is a small bowel obstruction with loops measuring up to 4 cm with a transition point in the left mid abdomen. Given some of the appearance of bowel orientation and mesenteric appearance is difficult to exclude an internal hernia. There are multiple enlarged mesenteric masses throughout the abdomen and pelvis, some calcified and diminished size compared with the May 2018 exam. Chest X-Ray 10/05/18 08:00 IMPRESSION: NO SIGNIFICANT RADIOGRAPHIC FINDING IN THE CHEST. KUB X-Ray 10/06/18 15:45 IMPRESSION: Tip of the enteric tube likely in the body of the stomach copyright 2010 [employer]- All Rights Reserved Assessment & Plan - Diagnosis (1) Abdominal pain Qualifiers: Abdominal location: generalized Qualified Code(s): R10.84 - Generalized abdominal pain Is this a current diagnosis for this admission?: Yes (2) GIST (gastrointestinal stromal tumor), malignant Qualifiers: Malignant gastrointestinal stromal tumor location: small intestine Qualified Code(s): C49.A3 - Gastrointestinal stromal tumor of small intestine Is this a current diagnosis for this admission?: Yes (3) Small bowel obstruction Is this a current diagnosis for this admission?: Yes - Plan Summary Plan Summary: pt refused reinsert of ng yesterdy has been more confused now restrained impression sbo due to gist tumors and adesions suspect confusion due to dementia and hospitilization no further vomiting will hold off on ng tube await return of bowel function.
--- NOTE | 2018-10-10 10:35 | PSYCHOLOGICAL NOTE ---
Psych Note - Psych Note Date seen by psych provider: 10/10/18 Time seen by psych provider: 09:06 - Chart review at 0906 Psych Note: Reason for Consult: Agitation, Combative Contact Permissions: Unknown Chart Review Only Patient is a 78 year old female who presented to the ED 10/04/18 for history of intestinal cancer, daily chemotherapy, having increased abdominal pain with diarrhea for [address] Christian sent her as a direct admit from his office after a visit patient scheduled, showed up with daughter,for nonspecific symptoms, appearance was pale looking and she seemed acutely ill. Medical documentation noted patient said she was acting and behaving normal. It was also documented that she has a history of gastrointestinal stromal tumor malignant for which she is prescribed Gleevec but is extremely noncompliant with it. She w as directly admitted for acute kidney injury, hypercalcemia, gastrointestinal stromal tumor (GIST) and small bowel obstruction. Home medication consists of Aricept (medication for dementia and cognition). She also had surgery for small bowel obtruction. She has been administered Dilaudid for pain and Ativan for anxiety. 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 Overall impression was: atrophy and chronic microvascular ischemic changes. On 10/09/18 medical documentation noted she was refusing NG tube, thrashed about in bed, was sitting up, screaming she wanted to go home, aand pulled out NG tubes and IVs. Diagnosis: Behavioral issues: possible artifact of anesthesia from surgery, pain medication of Dilaudid) and anxiety medication of Ativan (important given elderly and dementia history) 799.50 (R41.9) Unspecified Neurocognitive Disorder by History Medication recommendations made by the psychiatric medical provider, Dr. Yanet MD., includes: Discontinue Ativan 0.5MG IV every 2 hours as needed for anxiety Add Depakote DR 250MG twice a day for mood stabilization Add Buspar 5MG twice a day for anxiety/calming effect/depression/sleep Add Risperdal 0.25MG at 0800 and 1600 as needed for sun downing behaviors/agitation Impression/Plan: Patient is cleared from acute psychiatric services. She has history of dementia given home medication of Aricept and Head MRI dated 08/11/17 language which is consistent with language of neurodegenerative processes. She had surgery so likely had anesthesia, has been administered pain medication (Dilaudid) and anxiety medication (Ativan). All of these have been known to exacerbate or cause agitation, aggression and at times psychosis in the elderly population. An additional risk factor for this is dementia diagnosis. Consulted with Dr. Dumont regarding the management and care of patient. Attending hospitalist made aware of recommendations (tried making numerous phone call without success, spoke to attending nurse, faxed medication recommendation sheet to floor).
[2018-10-10 12:06] LABS: HEMATOCRIT 25.9 % (36.0-47.0); HEMOGLOBIN 8.2 g/dL (12.0-15.5); MEAN CORPUSCULAR HEMOGLOBIN 21.2 pg (27.0-33.4); MEAN CORPUSCULAR HGB CONC 31.7 g/dL (32.0-36.0); MEAN CORPUSCULAR VOLUME 67 fl (80-97); PLATELET COUNT 102 10^3/uL (150-450); RED BLOOD COUNT 3.86 10^6/uL (3.72-5.28); RED CELL DISTRIBUTION WIDTH 19.7 % (11.5-14.0); WHITE BLOOD COUNT 7.1 10^3/uL (4.0-10.5)
[2018-10-10 12:13] LABS: ANION GAP 5 (5-19); BLOOD UREA NITROGEN 15 mg/dL (7-20); CALCIUM 8.8 mg/dL (8.4-10.2); CARBON DIOXIDE 23 mmol/L (22-30); CHLORIDE 109 mmol/L (98-107); GLUCOSE 86 mg/dL (75-110); POTASSIUM 4.7 mmol/L (3.6-5.0); SODIUM 136.9 mmol/L (137-145)
[2018-10-10 12:45] LABS: ABSOLUTE LYMPHOCYTES# (MANUAL) 1.2 10^3/uL (0.5-4.7); ABSOLUTE MONOCYTES # (MANUAL) 0.3 10^3/uL (0.1-1.4); ABSOLUTE NEUTROPHILS# (MANUAL) 5.2 10^3/uL (1.7-8.2); BASOPHILS % (MANUAL) 0 % (0-2); EOSINOPHILS % (MANUAL) 6 % (0-6); LYMPHOCYTES % (MANUAL) 17 % (13-45); MONOCYTES % (MANUAL) 4 % (3-13); NUCLEATED RED BLOOD CELLS 1 /100 WBC (0); SEGMENTED NEUTROPHILS % (MAN) 73 % (42-78); TOTAL CELLS COUNTED 100
[2018-10-10 12:47] LABS: ANISOCYTOSIS 2+; POIKILOCYTOSIS 1+; POLYCHROMASIA 1+; SMUDGE CELLS PRESENT; TOXIC GRANULATION SLIGHT; TOXIC VACUOLATION PRESENT
[2018-10-10 12:48] LABS: BURR CELLS SLIGHT; HYPOCHROMASIA 1+; OVALOCYTES SLIGHT; PLATELET COMMENT DECREASED; SCHISTOCYTES SLIGHT; TARGET CELLS SLIGHT; TEAR DROP CELLS 1+
--- NOTE | 2018-10-10 18:20 | PDOC PROGRESS REPORT ---
Subjective Progress Note for:: 10/10/18 Subjective:: Patient was seen by the bedside, she is very lethargic, this is most likely from Dilaudid, she was on Dilaudid every hour, I will change this to every 4 hours as needed. She consistently pull the NG tube, she is not eating or drinking, she is still a full code Reason For Visit: ACUTE KIDNEY INJURY Physical Exam Vital Signs: Temp Pulse Resp BP Pulse Ox 97.6 F 67 18 108/58 L 96 10/10/18 08:09 10/10/18 08:09 10/10/18 08:09 10/10/18 08:09 10/10/18 08:09 Intake & Output 10/09/18 10/10/18 10/11/18 06:59 06:59 06:59 Intake Total 1970 1000 1000 Output Total 1375 690 250 Balance 595 310 750 General appearance: PRESENT: no acute distress Eye exam: PRESENT: PERRLA Cardiovascular exam: PRESENT: +S1, +S2 GI/Abdominal exam: PRESENT: soft Neurological exam: PRESENT: other - Lethargic Results Laboratory Results: 10/10/18 11:41 10/10/18 11:41 10/10/18 10/10/18 11:41 11:41 WBC 7.1 RBC 3.86 Hgb 8.2 L Hct 25.9 L MCV 67 L MCH 21.2 L MCHC 31.7 L RDW 19.7 H Plt Count 102 L Seg Neutrophils % Not Reportable Lymphocytes % Not Reportable Monocytes % Not Reportable Eosinophils % Not Reportable Basophils % Not Reportable Absolute Neutrophils Not Reportable Absolute Lymphocytes Not Reportable Absolute Monocytes Not Reportable Absolute Eosinophils Not Reportable Absolute Basophils Not Reportable Sodium 136.9 L Potassium 4.7 Chloride 109 H Carbon Dioxide 23 Anion Gap 5 BUN 15 Creatinine 0.80 Est GFR ( Amer) > 60 Est GFR (Non-Af Amer) > 60 Glucose 86 Calcium 8.8 10/04/18 21:20 Blood Blood Culture - Final NO GROWTH IN 5 DAYS 10/04/18 19:00 Blood Blood Culture - Final NO GROWTH IN 5 DAYS Impressions: Renal Ultrasound 10/04/18 00:00 IMPRESSION: Essentially stable imaging appearance of multiple bilateral cysts relative to CT imaging performed 05/09/2018. No acute findings. Abdomen/Pelvis CT 10/05/18 00:00 IMPRESSION: There is a small bowel obstruction with loops measuring up to 4 cm with a transition point in the left mid abdomen. Given some of the appearance of bowel orientation and mesenteric appearance is difficult to exclude an internal hernia. There are multiple enlarged mesenteric masses throughout the abdomen and pelvis, some calcified and diminished size compared with the May 2018 exam. Chest X-Ray 10/05/18 08:00 IMPRESSION: NO SIGNIFICANT RADIOGRAPHIC FINDING IN THE CHEST. KUB X-Ray 10/06/18 15:45 IMPRESSION: Tip of the enteric tube likely in the body of the stomach copyright 2011 [employer]- All Rights Reserved Assessment & Plan - Diagnosis (1) Acute kidney injury Is this a current diagnosis for this admission?: Yes (2) Hypercalcemia Is this a current diagnosis for this admission?: Yes (3) Gastrointestinal stromal tumor (GIST) Is this a current diagnosis for this admission?: Yes (4) Small bowel obstruction Is this a current diagnosis for this admission?: Yes (5) Lethargy Is this a current diagnosis for this admission?: Yes Plan: This is most likely from medication, decrease Dilaudid to every 6 hours
[2018-10-11] MEDS: POTASSI CL 20 MEQ/D5-1/2NS 1L 1,000 ML IV PRN (11:44)
[2018-10-11 11:56] LABS: ABSOLUTE BASOPHILS # (AUTO) 0.1 10^3/uL (0.0-0.2); ABSOLUTE EOSINOPHILS # (AUTO) 0.4 10^3/uL (0.0-0.6); ABSOLUTE LYMPHOCYTES (AUTO) 0.5 10^3/uL (0.5-4.7); ABSOLUTE MONOCYTES (AUTO) 0.8 10^3/uL (0.1-1.4); BASOPHILS % (AUTO) 0.7 % (0-2); EOSINOPHILS % (AUTO) 4.6 % (0-6); HEMATOCRIT 27.2 % (36.0-47.0); HEMOGLOBIN 8.7 g/dL (12.0-15.5); LYMPHOCYTES % (AUTO) 6.8 % (13-45); MEAN CORPUSCULAR HEMOGLOBIN 21.4 pg (27.0-33.4); MEAN CORPUSCULAR HGB CONC 32.2 g/dL (32.0-36.0); MEAN CORPUSCULAR VOLUME 67 fl (80-97); MONOCYTES % (AUTO) 10.7 % (3-13); PLATELET COUNT 176 10^3/uL (150-450); RED BLOOD COUNT 4.08 10^6/uL (3.72-5.28); RED CELL DISTRIBUTION WIDTH 20.4 % (11.5-14.0); SEGMENTED NEUTROPHILS % (AUTO) 77.2 % (42-78); TOTAL CELLS COUNTED % (AUTO) 100 %; WHITE BLOOD COUNT 7.8 10^3/uL (4.0-10.5)
[2018-10-11 12:21] LABS: ANION GAP 6 (5-19); BLOOD UREA NITROGEN 11 mg/dL (7-20); CALCIUM 9.3 mg/dL (8.4-10.2); CARBON DIOXIDE 25 mmol/L (22-30); CHLORIDE 105 mmol/L (98-107); GLUCOSE 84 mg/dL (75-110); POTASSIUM 4.4 mmol/L (3.6-5.0); SODIUM 136.4 mmol/L (137-145)
[2018-10-11 12:33] LABS: ANISOCYTOSIS 1+; HYPOCHROMASIA 2+; OVALOCYTES SLIGHT; PLATELET COMMENT ADEQUATE; POIKILOCYTOSIS SLIGHT; POLYCHROMASIA 1+; SCHISTOCYTES SLIGHT; TARGET CELLS 1+; TEAR DROP CELLS 1+
[2018-10-11] MEDS: HYDROMORPHONE HCL INJ/PF 2 MG/ML AMPULE IV PRN (16:58)
[2018-10-11] MEDS ORDERED: BISACODYL 10 MG SUPP.RECT PR ONE (18:21)
--- NOTE | 2018-10-11 18:21 | PDOC PROGRESS REPORT ---
Subjective Progress Note for:: 10/11/18 Subjective:: no flatus Reason For Visit: ACUTE KIDNEY INJURY Physical Exam Vital Signs: Temp Pulse Resp BP Pulse Ox 98.1 F 88 18 151/66 H 96 10/11/18 15:23 10/11/18 15:23 10/11/18 15:23 10/11/18 15:23 10/11/18 15:23 Intake & Output 10/10/18 10/11/18 10/12/18 06:59 06:59 06:59 Intake Total 1000 2000 1175 Output Total 690 800 150 Balance 310 1200 1025 Weight 61.2 kg General appearance: PRESENT: no acute distress Eye exam: PRESENT: EOMI Mouth exam: PRESENT: moist Neck exam: PRESENT: full ROM Respiratory exam: PRESENT: clear to auscultation [place]ur[place] Cardiovascular exam: PRESENT: RRR Pulses: PRESENT: normal radial pulses, normal femoral pulses GI/Abdominal exam: PRESENT: hypoactive bowel sounds, other - softly distended Rectal exam: PRESENT: deferred Extremities exam: PRESENT: full ROM Musculoskeletal exam: PRESENT: full ROM Neurological exam: PRESENT: other - pt appears depressed, sedated. Psychiatric exam: PRESENT: depressed, flat affect Skin exam: PRESENT: dry Results Laboratory Results: 10/11/18 11:31 10/11/18 11:31 10/11/18 10/11/18 11:31 11:31 WBC 7.8 RBC 4.08 Hgb 8.7 L Hct 27.2 L MCV 67 L MCH 21.4 L MCHC 32.2 RDW 20.4 H Plt Count 176 Seg Neutrophils % 77.2 Lymphocytes % 6.8 L Monocytes % 10.7 Eosinophils % 4.6 Basophils % 0.7 Absolute Neutrophils 6.0 Absolute Lymphocytes 0.5 Absolute Monocytes 0.8 Absolute Eosinophils 0.4 Absolute Basophils 0.1 Sodium 136.4 L Potassium 4.4 Chloride 105 Carbon Dioxide 25 Anion Gap 6 BUN 11 Creatinine 0.81 Est GFR ( Amer) > 60 Est GFR (Non-Af Amer) > 60 Glucose 84 Calcium 9.3 Impressions: Renal Ultrasound 10/04/18 00:00 IMPRESSION: Essentially stable imaging appearance of multiple bilateral cysts relative to CT imaging performed 05/09/2018. No acute findings. Abdomen/Pelvis CT 10/05/18 00:00 IMPRESSION: There is a small bowel obstruction with loops measuring up to 4 cm with a transition point in the left mid abdomen. Given some of the appearance of bowel orientation and mesenteric appearance is difficult to exclude an internal hernia. There are multiple enlarged mesenteric masses throughout the abdomen and pelvis, some calcified and diminished size compared with the May 2018 exam. Chest X-Ray 10/05/18 08:00 IMPRESSION: NO SIGNIFICANT RADIOGRAPHIC FINDING IN THE CHEST. KUB X-Ray 10/06/18 15:45 IMPRESSION: Tip of the enteric tube likely in the body of the stomach copyright 2011 [employer]- All Rights Reserved Assessment & Plan - Diagnosis (1) Abdominal pain Qualifiers: Abdominal location: generalized Qualified Code(s): R10.84 - Generalized abdominal pain Is this a current diagnosis for this admission?: Yes (2) GIST (gastrointestinal stromal tumor), malignant Qualifiers: Malignant gastrointestinal stromal tumor location: small intestine Qualified Code(s): C49.A3 - Gastrointestinal stromal tumor of small intestine Is this a current diagnosis for this admission?: Yes (3) Small bowel obstruction Is this a current diagnosis for this admission?: Yes - Plan Summary Plan Summary: pt now on clear liquids has not passed flatus/stool awaiting return of bowel function 'will order dulcolax suppository.
[2018-10-11] MEDS: ENALAPRILAT DIHYDRATE INJ/PF 1.25 MG/1 ML SDV IV PRN (20:05)
--- NOTE | 2018-10-11 21:46 | PDOC PROGRESS REPORT ---
Subjective Progress Note for:: 10/11/18 Subjective:: Patient is alert today ,though ,drowsy Reason For Visit: ACUTE KIDNEY INJURY Physical Exam Vital Signs: Temp Pulse Resp BP Pulse Ox 98.1 F 88 18 166/79 H 96 10/11/18 15:23 10/11/18 20:05 10/11/18 15:23 10/11/18 20:05 10/11/18 15:23 Intake & Output 10/10/18 10/11/18 10/12/18 06:59 06:59 06:59 Intake Total 1000 2000 1175 Output Total 690 800 600 Balance 310 1200 575 Weight 61.2 kg General appearance: PRESENT: no acute distress Respiratory exam: PRESENT: clear to auscultation [place] Cardiovascular exam: PRESENT: +S1, +S2 GI/Abdominal exam: PRESENT: soft Neurological exam: PRESENT: alert Results Laboratory Results: 10/11/18 11:31 10/11/18 11:31 10/11/18 10/11/18 11:31 11:31 WBC 7.8 RBC 4.08 Hgb 8.7 L Hct 27.2 L MCV 67 L MCH 21.4 L MCHC 32.2 RDW 20.4 H Plt Count 176 Seg Neutrophils % 77.2 Lymphocytes % 6.8 L Monocytes % 10.7 Eosinophils % 4.6 Basophils % 0.7 Absolute Neutrophils 6.0 Absolute Lymphocytes 0.5 Absolute Monocytes 0.8 Absolute Eosinophils 0.4 Absolute Basophils 0.1 Sodium 136.4 L Potassium 4.4 Chloride 105 Carbon Dioxide 25 Anion Gap 6 BUN 11 Creatinine 0.81 Est GFR ( Amer) > 60 Est GFR (Non-Af Amer) > 60 Glucose 84 Calcium 9.3 Impressions: Renal Ultrasound 10/04/18 00:00 IMPRESSION: Essentially stable imaging appearance of multiple bilateral cysts relative to CT imaging performed 05/09/2018. No acute findings. Abdomen/Pelvis CT 10/05/18 00:00 IMPRESSION: There is a small bowel obstruction with loops measuring up to 4 cm with a transition point in the left mid abdomen. Given some of the appearance of bowel orientation and mesenteric appearance is difficult to exclude an internal hernia. There are multiple enlarged mesenteric masses throughout the abdomen and pelvis, some calcified and diminished size compared with the May 2018 exam. Chest X-Ray 10/05/18 08:00 IMPRESSION: NO SIGNIFICANT RADIOGRAPHIC FINDING IN THE CHEST. KUB X-Ray 10/06/18 15:45 IMPRESSION: Tip of the enteric tube likely in the body of the stomach copyright 2011 [employer]- All Rights Reserved Assessment & Plan - Diagnosis (1) Acute kidney injury Is this a current diagnosis for this admission?: Yes Plan: resolved (2) Hypercalcemia Is this a current diagnosis for this admission?: Yes (3) Gastrointestinal stromal tumor (GIST) Is this a current diagnosis for this admission?: Yes (4) Small bowel obstruction Is this a current diagnosis for this admission?: Yes Plan: she had bowel movement today (5) Lethargy Is this a current diagnosis for this admission?: Yes
[2018-10-12] MEDS: POTASSI CL 20 MEQ/D5-1/2NS 1L 1,000 ML IV PRN ×2 (00:19→14:09)
[2018-10-12] MEDS: LORAZEPAM INJ 2 MG/1 ML VIAL IV PRN ×2 (00:20→14:08)
[2018-10-12] MEDS: HYDROMORPHONE HCL INJ/PF 2 MG/ML AMPULE IV PRN ×4 (03:01→23:36)
--- NOTE | 2018-10-12 07:58 | PDOC PROGRESS REPORT ---
Subjective Progress Note for:: 10/12/18 Reason For Visit: ACUTE KIDNEY INJURY small bowel obstruction Physical Exam Vital Signs: Temp Pulse Resp BP Pulse Ox 98.8 F 88 16 136/67 H 94 10/12/18 04:04 10/12/18 04:04 10/12/18 04:04 10/12/18 04:04 10/12/18 04:04 Intake & Output 10/11/18 10/12/18 10/13/18 06:59 06:59 06:59 Intake Total 2000 2395 Output Total 800 860 Balance 1200 1535 Weight 61.2 kg 59.5 kg General appearance: PRESENT: other - drowsy, sleeping Head exam: PRESENT: normocephalic Eye exam: PRESENT: EOMI Ear exam: PRESENT: normal external ear exam Mouth exam: PRESENT: moist Neck exam: PRESENT: full ROM Respiratory exam: PRESENT: clear to auscultation keturah, rhonchi Cardiovascular exam: PRESENT: RRR Pulses: PRESENT: +2 pedal pulses bilateral GI/Abdominal exam: PRESENT: normal bowel sounds, soft Rectal exam: PRESENT: deferred Extremities exam: PRESENT: full ROM Musculoskeletal exam: PRESENT: full ROM Neurological exam: PRESENT: other - drowsy Psychiatric exam: PRESENT: flat affect Results Laboratory Results: 10/11/18 11:31 10/11/18 11:31 10/11/18 10/11/18 11:31 11:31 WBC 7.8 RBC 4.08 Hgb 8.7 L Hct 27.2 L MCV 67 L MCH 21.4 L MCHC 32.2 RDW 20.4 H Plt Count 176 Seg Neutrophils % 77.2 Lymphocytes % 6.8 L Monocytes % 10.7 Eosinophils % 4.6 Basophils % 0.7 Absolute Neutrophils 6.0 Absolute Lymphocytes 0.5 Absolute Monocytes 0.8 Absolute Eosinophils 0.4 Absolute Basophils 0.1 Sodium 136.4 L Potassium 4.4 Chloride 105 Carbon Dioxide 25 Anion Gap 6 BUN 11 Creatinine 0.81 Est GFR ( Amer) > 60 Est GFR (Non-Af Amer) > 60 Glucose 84 Calcium 9.3 Impressions: Renal Ultrasound 10/04/18 00:00 IMPRESSION: Essentially stable imaging appearance of multiple bilateral cysts relative to CT imaging performed 05/09/2018. No acute findings. Abdomen/Pelvis CT 10/05/18 00:00 IMPRESSION: There is a small bowel obstruction with loops measuring up to 4 cm with a transition point in the left mid abdomen. Given some of the appearance of bowel orientation and mesenteric appearance is difficult to exclude an internal hernia. There are multiple enlarged mesenteric masses throughout the abdomen and pelvis, some calcified and diminished size compared with the May 2018 exam. Chest X-Ray 10/05/18 08:00 IMPRESSION: NO SIGNIFICANT RADIOGRAPHIC FINDING IN THE CHEST. KUB X-Ray 10/06/18 15:45 IMPRESSION: Tip of the enteric tube likely in the body of the stomach copyright 2011 [employer]- All Rights Reserved Assessment & Plan - Diagnosis (1) Abdominal pain Qualifiers: Abdominal location: generalized Qualified Code(s): R10.84 - Generalized abdominal pain Is this a current diagnosis for this admission?: Yes (2) GIST (gastrointestinal stromal tumor), malignant Qualifiers: Malignant gastrointestinal stromal tumor location: small intestine Qualified Code(s): C49.A3 - Gastrointestinal stromal tumor of small intestine Is this a current diagnosis for this admission?: Yes (3) Small bowel obstruction Is this a current diagnosis for this admission?: Yes - Plan Summary Plan Summary: pt sleeping reported by nurse, now having bm's pramod clear liquids still drowsy abd soft plan will advnce diet to soft
[2018-10-12 13:27] LABS: HEMATOCRIT 26.6 % (36.0-47.0); HEMOGLOBIN 8.3 g/dL (12.0-15.5); MEAN CORPUSCULAR HEMOGLOBIN 21.1 pg (27.0-33.4); MEAN CORPUSCULAR HGB CONC 31.1 g/dL (32.0-36.0); MEAN CORPUSCULAR VOLUME 68 fl (80-97); PLATELET COUNT 172 10^3/uL (150-450); RED BLOOD COUNT 3.93 10^6/uL (3.72-5.28); RED CELL DISTRIBUTION WIDTH 19.7 % (11.5-14.0); WHITE BLOOD COUNT 9.3 10^3/uL (4.0-10.5)
[2018-10-12 13:37] LABS: ANION GAP 7 (5-19); BLOOD UREA NITROGEN 10 mg/dL (7-20); CALCIUM 8.8 mg/dL (8.4-10.2); CARBON DIOXIDE 23 mmol/L (22-30); CHLORIDE 104 mmol/L (98-107); GLUCOSE 79 mg/dL (75-110); SODIUM 134.4 mmol/L (137-145)
[2018-10-12 13:58] LABS: ABSOLUTE LYMPHOCYTES# (MANUAL) 0.8 10^3/uL (0.5-4.7); ABSOLUTE MONOCYTES # (MANUAL) 0.7 10^3/uL (0.1-1.4); ABSOLUTE NEUTROPHILS# (MANUAL) 7.6 10^3/uL (1.7-8.2); BASOPHILS % (MANUAL) 0 % (0-2); EOSINOPHILS % (MANUAL) 1 % (0-6); LYMPHOCYTES % (MANUAL) 9 % (13-45); MONOCYTES % (MANUAL) 8 % (3-13); SEGMENTED NEUTROPHILS % (MAN) 82 % (42-78); TOTAL CELLS COUNTED 100
[2018-10-12 14:01] LABS: ANISOCYTOSIS 1+; OVALOCYTES SLIGHT; POIKILOCYTOSIS 1+; TARGET CELLS 1+; TEAR DROP CELLS SLIGHT
[2018-10-12 14:02] LABS: PLATELET COMMENT ADEQUATE
--- NOTE | 2018-10-12 20:46 | PDOC PROGRESS REPORT ---
Subjective Progress Note for:: 10/12/18 Subjective:: Patient overall condition is poor, she was seen by hospice nurse today family is yet to buy into hospice Reason For Visit: ACUTE KIDNEY INJURY Physical Exam Vital Signs: Temp Pulse Resp BP Pulse Ox 98.5 F 86 19 143/67 H 96 10/12/18 19:13 10/12/18 19:13 10/12/18 19:13 10/12/18 19:13 10/12/18 19:13 Intake & Output 10/11/18 10/12/18 10/13/18 06:59 06:59 06:59 Intake Total 1999 2395 1100 Output Total 800 860 Balance 1200 1535 1100 Weight 61.2 kg 59.5 kg General appearance: PRESENT: no acute distress Eye exam: PRESENT: PERRLA Respiratory exam: PRESENT: clear to auscultation keturah Cardiovascular exam: PRESENT: +S1, +S2 GI/Abdominal exam: PRESENT: soft Results Laboratory Results: 10/12/18 12:15 10/12/18 12:15 10/12/18 10/12/18 12:15 12:15 WBC 9.3 RBC 3.93 Hgb 8.3 L Hct 26.6 L MCV 68 L MCH 21.1 L MCHC 31.1 L RDW 19.7 H Plt Count 172 Seg Neutrophils % Not Reportable Lymphocytes % Not Reportable Monocytes % Not Reportable Eosinophils % Not Reportable Basophils % Not Reportable Absolute Neutrophils Not Reportable Absolute Lymphocytes Not Reportable Absolute Monocytes Not Reportable Absolute Eosinophils Not Reportable Absolute Basophils Not Reportable Sodium 134.4 L Potassium 4.0 Chloride 104 Carbon Dioxide 23 Anion Gap 7 BUN 10 Creatinine 0.87 Est GFR ( Amer) > 60 Est GFR (Non-Af Amer) > 60 Glucose 79 Calcium 8.8 Impressions: Renal Ultrasound 10/04/18 00:00 IMPRESSION: Essentially stable imaging appearance of multiple bilateral cysts relative to CT imaging performed 05/09/2018. No acute findings. Abdomen/Pelvis CT 10/05/18 00:00 IMPRESSION: There is a small bowel obstruction with loops measuring up to 4 cm with a transition point in the left mid abdomen. Given some of the appearance of bowel orientation and mesenteric appearance is difficult to exclude an internal hernia. There are multiple enlarged mesenteric masses throughout the abdomen and pelvis, some calcified and diminished size compared with the May 2018 exam. Chest X-Ray 10/05/18 08:00 IMPRESSION: NO SIGNIFICANT RADIOGRAPHIC FINDING IN THE CHEST. KUB X-Ray 10/06/18 15:45 IMPRESSION: Tip of the enteric tube likely in the body of the stomach copyright 2011 [employer]- All Rights Reserved Assessment & Plan - Diagnosis (1) Acute kidney injury Is this a current diagnosis for this admission?: Yes Plan: resolved (2) Hypercalcemia Is this a current diagnosis for this admission?: Yes (3) Gastrointestinal stromal tumor (GIST) Is this a current diagnosis for this admission?: Yes Plan: Prognosis guarded (4) Small bowel obstruction Is this a current diagnosis for this admission?: Yes (5) Lethargy Is this a current diagnosis for this admission?: Yes
[2018-10-13] MEDS: POTASSI CL 20 MEQ/D5-1/2NS 1L 1,000 ML IV PRN ×3 (00:31→22:24)
[2018-10-13] MEDS: LORAZEPAM INJ 2 MG/1 ML VIAL IV PRN ×4 (03:49→20:58)
--- NOTE | 2018-10-13 10:52 | PDOC PROGRESS REPORT ---
Subjective Progress Note for:: 10/13/18 Reason For Visit: ACUTE KIDNEY INJURY post exploratory lap for sbo,intussesception gist tumors. Physical Exam Vital Signs: Temp Pulse Resp BP Pulse Ox 98.0 F 79 20 141/64 H 98 10/13/18 07:32 10/13/18 07:32 10/13/18 07:32 10/13/18 07:32 10/13/18 07:32 Intake & Output 10/12/18 10/13/18 10/14/18 06:59 06:59 06:59 Intake Total 2395 2472 Output Total 860 Balance 1535 2472 Weight 59.5 kg 60 kg General appearance: PRESENT: no acute distress, other - sleeping Eye exam: PRESENT: EOMI Mouth exam: PRESENT: moist Results Laboratory Results: 10/12/18 12:15 10/12/18 12:15 10/12/18 10/12/18 12:15 12:15 WBC 9.3 RBC 3.93 Hgb 8.3 L Hct 26.6 L MCV 68 L MCH 21.1 L MCHC 31.1 L RDW 19.7 H Plt Count 172 Seg Neutrophils % Not Reportable Lymphocytes % Not Reportable Monocytes % Not Reportable Eosinophils % Not Reportable Basophils % Not Reportable Absolute Neutrophils Not Reportable Absolute Lymphocytes Not Reportable Absolute Monocytes Not Reportable Absolute Eosinophils Not Reportable Absolute Basophils Not Reportable Sodium 134.4 L Potassium 4.0 Chloride 104 Carbon Dioxide 23 Anion Gap 7 BUN 10 Creatinine 0.87 Est GFR ( Amer) > 60 Est GFR (Non-Af Amer) > 60 Glucose 79 Calcium 8.8 Impressions: Renal Ultrasound 10/04/18 00:00 IMPRESSION: Essentially stable imaging appearance of multiple bilateral cysts relative to CT imaging performed 05/09/2018. No acute findings. Abdomen/Pelvis CT 10/05/18 00:00 IMPRESSION: There is a small bowel obstruction with loops measuring up to 4 cm with a transition point in the left mid abdomen. Given some of the appearance of bowel orientation and mesenteric appearance is difficult to exclude an inter nal hernia. There are multiple enlarged mesenteric masses throughout the abdomen and pelvis, some calcified and diminished size compared with the May 2018 exam. Chest X-Ray 10/05/18 08:00 IMPRESSION: NO SIGNIFICANT RADIOGRAPHIC FINDING IN THE CHEST. KUB X-Ray 10/06/18 15:45 IMPRESSION: Tip of the enteric tube likely in the body of the stomach copyright 2011 [employer]- All Rights Reserved Assessment & Plan - Diagnosis (1) Abdominal pain Qualifiers: Abdominal location: generalized Qualified Code(s): R10.84 - Generalized abdominal pain Is this a current diagnosis for this admission?: Yes (2) GIST (gastrointestinal stromal tumor), malignant Qualifiers: Malignant gastrointestinal stromal tumor location: small intestine Qualified Code(s): C49.A3 - Gastrointestinal stromal tumor of small intestine Is this a current diagnosis for this admission?: Yes (3) Small bowel obstruction Is this a current diagnosis for this admission?: Yes - Plan Summary Plan Summary: pt sleeping report from nurses\ pt eating poorly pramod full liquids having bm's will advance to reg diet ok for discharge from surgery standpt.
[2018-10-13 12:04] LABS: HEMATOCRIT 23.9 % (36.0-47.0); MEAN CORPUSCULAR HEMOGLOBIN 20.7 pg (27.0-33.4); MEAN CORPUSCULAR VOLUME 67 fl (80-97); PLATELET COUNT 177 10^3/uL (150-450); RED BLOOD COUNT 3.59 10^6/uL (3.72-5.28); RED CELL DISTRIBUTION WIDTH 19.6 % (11.5-14.0); WHITE BLOOD COUNT 7.5 10^3/uL (4.0-10.5)
[2018-10-13 12:08] LABS: ANION GAP 6 (5-19); BLOOD UREA NITROGEN 7 mg/dL (7-20); CALCIUM 8.7 mg/dL (8.4-10.2); CARBON DIOXIDE 21 mmol/L (22-30); CHLORIDE 110 mmol/L (98-107); GLUCOSE 96 mg/dL (75-110); SODIUM 137.4 mmol/L (137-145)
[2018-10-13 12:38] LABS: ABSOLUTE LYMPHOCYTES# (MANUAL) 0.5 10^3/uL (0.5-4.7); ABSOLUTE MONOCYTES # (MANUAL) 0.3 10^3/uL (0.1-1.4); ABSOLUTE NEUTROPHILS# (MANUAL) 6.4 10^3/uL (1.7-8.2); BASOPHILS % (MANUAL) 0 % (0-2); EOSINOPHILS % (MANUAL) 4 % (0-6); HYPOCHROMASIA 2+; LYMPHOCYTES % (MANUAL) 7 % (13-45); MONOCYTES % (MANUAL) 4 % (3-13); SEGMENTED NEUTROPHILS % (MAN) 85 % (42-78); TOTAL CELLS COUNTED 100
[2018-10-13 12:39] LABS: ANISOCYTOSIS 2+; OVALOCYTES SLIGHT; PLATELET COMMENT ADEQUATE; POIKILOCYTOSIS 2+; TARGET CELLS SLIGHT; TEAR DROP CELLS SLIGHT
[2018-10-13 12:44] LABS: HEMOGLOBIN 7.4 g/dL (12.0-15.5)
[2018-10-13] MEDS: ONDANSETRON HCL INJ/PF 4 MG/2 ML SDV IV PRN (14:24)
[2018-10-13] MEDS: HYDROMORPHONE HCL INJ/PF 2 MG/ML AMPULE IV PRN (15:33)
--- NOTE | 2018-10-13 15:41 | PDOC PROGRESS REPORT ---
Subjective Progress Note for:: 10/13/18 Subjective:: Patient compliant about abdominal pain. Nursing staff reported about 10 bowel movement so far today ad mostly diarrhea. Tolerating some amount of full liquid diet presently. No reported fever or chills. She denied any chest pain or difficulty with breathing. Reason For Visit: ACUTE KIDNEY INJURY Physical Exam Vital Signs: Temp Pulse Resp BP Pulse Ox 98.7 F 71 16 183/92 H 98 10/13/18 11:27 10/13/18 14:00 10/13/18 11:27 10/13/18 11:27 10/13/18 11:27 Intake & Output 10/12/18 10/13/18 10/14/18 06:59 06:59 06:59 Intake Total 2395 2472 1000 Output Total 860 Balance 1535 2472 1000 Weight 59.5 kg 60 kg General appearance: PRESENT: no acute distress Head exam: PRESENT: atraumatic, normocephalic Eye exam: PRESENT: conjunctiva pink. ABSENT: scleral icterus Ear exam: PRESENT: normal external ear exam Mouth exam: PRESENT: moist Respiratory exam: PRESENT: clear to auscultation keturah, decreased breath sounds - at lung bases Cardiovascular exam: PRESENT: RRR. ABSENT: diastolic murmur, rubs, systolic murmur Vascular exam: ABSENT: pallor GI/Abdominal exam: PRESENT: normal bowel sounds, soft, tenderness - nonpsecific. surgical jun in situ.. ABSENT: distended, guarding, mass, organolmegaly, rebound Extremities exam: ABSENT: pedal edema Musculoskeletal exam: PRESENT: normal inspection Neurological exam: PRESENT: alert, awake, oriented to person, oriented to place, oriented to time, oriented to situation, CN II-XII grossly intact. ABSENT: motor sensory deficit Psychiatric exam: PRESENT: appropriate affect, normal mood. ABSENT: homicidal ideation, suicidal ideation Skin exam: PRESENT: dry, warm, other - surgical sites dresing satisfactory. Results Laboratory Results: 10/13/18 11:32 10/13/18 11:32 10/13/18 10/13/18 11:32 11:32 WBC 7.5 RBC 3.59 L Hgb 7.4 L Hct 23.9 L MCV 67 L MCH 20.7 L MCHC 31.0 L RDW 19.6 H Plt Count 177 Seg Neutrophils % Not Reportable Lymphocytes % Not Reportable Monocytes % Not Reportable Eosinophils % Not Reportable Basophils % Not Reportable Absolute Neutrophils Not Reportable Absolute Lymphocytes Not Reportable Absolute Monocytes Not Reportable Absolute Eosinophils Not Reportable Absolute Basophils Not Reportable Sodium 137.4 Potassium 4.0 Chloride 110 H Carbon Dioxide 21 L Anion Gap 6 BUN 7 Creatinine 0.72 Est GFR ( Amer) > 60 Est GFR (Non-Af Amer) > 60 Glucose 96 Calcium 8.7 Impressions: Renal Ultrasound 10/04/18 00:00 IMPRESSION: Essentially stable imaging appearance of multiple bilateral cysts relative to CT imaging performed 05/09/2018. No acute findings. Abdomen/Pelvis CT 10/05/18 00:00 IMPRESSION: There is a small bowel obstruction with loops measuring up to 4 cm with a transition point in the left mid abdomen. Given some of the appearance of bowel orientation and mesenteric appearance is difficult to exclude an internal hernia. There are multiple enlarged mesenteric masses throughout the abdomen and pelvis, some calcified and diminished size compared with the May 2018 exam. Chest X-Ray 10/05/18 08:00 IMPRESSION: NO SIGNIFICANT RADIOGRAPHIC FINDING IN THE CHEST. KUB X-Ray 10/06/18 15:45 IMPRESSION: Tip of the enteric tube likely in the body of the stomach copyright 2011 [employer]- All Rights Reserved Assessment & Plan - Diagnosis (1) Acute kidney injury Is this a current diagnosis for this admission?: Yes Plan: Continue IV fluid support. Improving renal indices. Obtain BMP in AM. (2) Hypercalcemia Is this a current diagnosis for this admission?: Yes Plan: Continue current medical interventions. (3) Lethargy Is this a current diagnosis for this admission?: Yes Plan: Improved and probably related to hypercalcemia. (4) Small bowel obstruction Is this a current diagnosis for this admission?: Yes Plan: Resolved. s/p exploratory laparatomy with adhesion lysis and removal of multiple gastric stroma tumor (GIST). Continue current post operative supportive care. (5) GIST (gastrointestinal stromal tumor), malignant Qualifiers: Malignant gastrointestinal stromal tumor location: small intestine Qualified Code(s): C49.A3 - Gastrointestinal stromal tumor of small intestine Is this a current diagnosis for this admission?: Yes Plan: Continue current medication management. (6) Hypertension Qualifiers: Hypertension type: essential hypertension Qualified Code(s): I10 - Essential (primary) hypertension Is this a current diagnosis for this admission?: Yes Plan: Continue current medication management. (7) Diarrhea Qualifiers: Diarrhea type: unspecified type Qualified Code(s): R19.7 - Diarrhea, unspecified Is this a current diagnosis for this admission?: Yes Plan: Obtain stool for C. difficile toxin titer - Time Time Spent with patient: 25-34 minutes Medications reviewed and adjusted accordingly: Yes Anticipated discharge: Home with Homehealth, SNF Within: Other - Inpatient Certification Based on my medical assessment, after consideration of the patient's comorbidities, presenting symptoms, or acuity I expect that the services needed warrant INPATIENT care.: Yes I certify that my determination is in accordance with my understanding of Medicare's requirements for reasonable and necessary INPATIENT services [42 CFR 412.3e].: Yes Medical Necessity: Significant Comorbidiites Make Outpatient Treatment Too Risky, Need Close Monitoring Due to Risk of Patient Decompensation, Need For IV Fluids, Need For Continuous Telemetry Monitoring, Risk of Complication if Not Cared For in Hospital, Risk of Diagnosis Which Will Require Inpatient E marcos/Care/Monitoring Post Hospital Care: D/C [employer] Documentation, D/C or Transfer Summary - Plan Summary Plan Summary: Continue current medication management.
[2018-10-14] MEDS: HYDROMORPHONE HCL INJ/PF 2 MG/ML AMPULE IV PRN (05:22)
[2018-10-14 11:30] LABS: HEMATOCRIT 23.6 % (36.0-47.0); MEAN CORPUSCULAR HEMOGLOBIN 20.9 pg (27.0-33.4); MEAN CORPUSCULAR HGB CONC 31.3 g/dL (32.0-36.0); MEAN CORPUSCULAR VOLUME 67 fl (80-97); PLATELET COUNT 199 10^3/uL (150-450); RED BLOOD COUNT 3.54 10^6/uL (3.72-5.28); RED CELL DISTRIBUTION WIDTH 19.1 % (11.5-14.0); WHITE BLOOD COUNT 5.7 10^3/uL (4.0-10.5)
[2018-10-14 11:39] LABS: ANION GAP 7 (5-19); BLOOD UREA NITROGEN 4 mg/dL (7-20); CALCIUM 8.5 mg/dL (8.4-10.2); CARBON DIOXIDE 22 mmol/L (22-30); CHLORIDE 111 mmol/L (98-107); GLUCOSE 90 mg/dL (75-110); POTASSIUM 4.2 mmol/L (3.6-5.0); SODIUM 139.7 mmol/L (137-145)
[2018-10-14 12:02] LABS: ABSOLUTE LYMPHOCYTES# (MANUAL) 1.2 10^3/uL (0.5-4.7); ABSOLUTE MONOCYTES # (MANUAL) 0.2 10^3/uL (0.1-1.4); ABSOLUTE NEUTROPHILS# (MANUAL) 3.9 10^3/uL (1.7-8.2); BASOPHILS % (MANUAL) 0 % (0-2); EOSINOPHILS % (MANUAL) 7 % (0-6); HEMOGLOBIN 7.4 g/dL (12.0-15.5); LYMPHOCYTES % (MANUAL) 21 % (13-45); METAMYELOCYTES % (MANUAL) 1 % (0); MONOCYTES % (MANUAL) 3 % (3-13); SEGMENTED NEUTROPHILS % (MAN) 68 % (42-78); TOTAL CELLS COUNTED 100
[2018-10-14 12:03] LABS: ANISOCYTOSIS 2+; HYPOCHROMASIA 2+; PLATELET CLUMPS PRESENT; PLATELET COMMENT ADEQUATE; POIKILOCYTOSIS 2+; TARGET CELLS 2+; TEAR DROP CELLS 1+
[2018-10-14] MEDS: POTASSI CL 20 MEQ/D5-1/2NS 1L 1,000 ML IV PRN ×2 (16:43→21:11)
[2018-10-14] MEDS ORDERED: NORMAL SALINE 250 ML IV PRN ×2 (19:34)
[2018-10-14] MEDS: ENALAPRILAT DIHYDRATE INJ/PF 1.25 MG/1 ML SDV IV PRN (21:11)
[2018-10-15] MEDS: LORAZEPAM INJ 2 MG/1 ML VIAL IV PRN ×2 (01:49→16:36)
[2018-10-15 03:54] LABS: HEMATOCRIT 26.9 % (36.0-47.0); HEMOGLOBIN 8.3 g/dL (12.0-15.5); MEAN CORPUSCULAR HEMOGLOBIN 20.7 pg (27.0-33.4); MEAN CORPUSCULAR HGB CONC 30.7 g/dL (32.0-36.0); MEAN CORPUSCULAR VOLUME 67 fl (80-97); PLATELET COUNT 231 10^3/uL (150-450); RED CELL DISTRIBUTION WIDTH 19.4 % (11.5-14.0); WHITE BLOOD COUNT 6.7 10^3/uL (4.0-10.5)
[2018-10-15 04:22] LABS: BLOOD UREA NITROGEN 3 mg/dL (7-20); CALCIUM 9.1 mg/dL (8.4-10.2); GLUCOSE 91 mg/dL (75-110); POTASSIUM 4.2 mmol/L (3.6-5.0)
[2018-10-15 04:25] LABS: ABSOLUTE LYMPHOCYTES# (MANUAL) 0.9 10^3/uL (0.5-4.7); ABSOLUTE MONOCYTES # (MANUAL) 0.3 10^3/uL (0.1-1.4); ABSOLUTE NEUTROPHILS# (MANUAL) 5.1 10^3/uL (1.7-8.2); BASOPHILS % (MANUAL) 0 % (0-2); EOSINOPHILS % (MANUAL) 7 % (0-6); HYPOCHROMASIA 2+; LYMPHOCYTES % (MANUAL) 13 % (13-45); MONOCYTES % (MANUAL) 4 % (3-13); SEGMENTED NEUTROPHILS % (MAN) 76 % (42-78); TOTAL CELLS COUNTED 100; TOXIC GRANULATION 1+
[2018-10-15 04:26] LABS: ANISOCYTOSIS 2+; OVALOCYTES 1+; PLATELET COMMENT ADEQUATE; SCHISTOCYTES SLIGHT; TARGET CELLS 2+; TEAR DROP CELLS 1+
[2018-10-15 04:28] LABS: ANION GAP 5 (5-19); CARBON DIOXIDE 22 mmol/L (22-30); CHLORIDE 111 mmol/L (98-107)
[2018-10-15] MEDS: POTASSI CL 20 MEQ/D5-1/2NS 1L 1,000 ML IV PRN (07:51)
[2018-10-15] MEDS: HYDROMORPHONE HCL INJ/PF 2 MG/ML AMPULE IV PRN ×2 (14:28→21:51)
[2018-10-15] MEDS: VANCOMYCIN HCL INJ 500 MG VIAL PO SCH ×3 (14:34→21:51)
--- NOTE | 2018-10-15 15:55 | PDOC PROGRESS REPORT ---
Subjective Progress Note for:: 10/15/18 Subjective:: Patient seen by the bedside, she has diarrhea, the feces was positive for C. difficile toxin Reason For Visit: ACUTE KIDNEY INJURY Physical Exam Vital Signs: Temp Pulse Resp BP Pulse Ox 98.0 F 72 16 177/75 H 98 10/15/18 13:22 10/15/18 13:22 10/15/18 13:22 10/15/18 13:22 10/15/18 13:22 Intake & Output 10/14/18 10/15/18 10/16/18 06:59 06:59 06:59 Intake Total 2100 1647 1842 Output Total 500 0 Balance 1600 1647 1842 Weight 61.2 kg 60.9 kg General appearance: PRESENT: no acute distress Eye exam: PRESENT: PERRLA Respiratory exam: PRESENT: clear to auscultation keturah Cardiovascular exam: PRESENT: +S1, +S2 GI/Abdominal exam: PRESENT: soft Neurological exam: PRESENT: alert Results Laboratory Results: 10/15/18 03:25 10/15/18 03:25 10/14/18 10/15/18 10/15/18 20:10 03:25 03:25 WBC 6.7 RBC 4.00 Hgb 8.3 L Hct 26.9 L MCV 67 L MCH 20.7 L MCHC 30.7 L RDW 19.4 H Plt Count 231 Seg Neutrophils % Not Reportable Lymphocytes % Not Reportable Monocytes % Not Reportable Eosinophils % Not Reportable Basophils % Not Reportable Absolute Neutrophils Not Reportable Absolute Lymphocytes Not Reportable Absolute Monocytes Not Reportable Absolute Eosinophils Not Reportable Absolute Basophils Not Reportable Sodium 138.0 Potassium 4.2 Chloride 111 H Carbon Dioxide 22 Anion Gap 5 BUN 3 L Creatinine 0.71 Est GFR ( Amer) > 60 Est GFR (Non-Af Amer) > 60 Glucose 91 Calcium 9.1 Blood Type O POSITIVE Antibody Screen POSITIVE Impressions: Renal Ultrasound 10/04/18 00:00 IMPRESSION: Essentially stable imaging appearance of multiple bilateral cysts relative to CT imaging performed 05/09/2018. No acute findings. Abdomen/Pelvis CT 10/05/18 00:00 IMPRESSION: There is a small bowel obstruction with loops measuring up to 4 cm with a transition point in the left mid abdomen. Given some of the appearance of bowel orientation and mesenteric appearance is difficult to exclude an internal hernia. There are multiple enlarged mesenteric masses throughout the abdomen and pelvis, some calcified and diminished size compared with the May 2018 exam. Chest X-Ray 10/05/18 08:00 IMPRESSION: NO SIGNIFICANT RADIOGRAPHIC FINDING IN THE CHEST. KUB X-Ray 10/06/18 15:45 IMPRESSION: Tip of the enteric tube likely in the body of the stomach copyright 2010 [employer]- All Rights Reserved Assessment & Plan - Diagnosis (1) Acute kidney injury Is this a current diagnosis for this admission?: Yes (2) Hypercalcemia Is this a current diagnosis for this admission?: Yes (3) Gastrointestinal stromal tumor (GIST) Is this a current diagnosis for this admission?: Yes (4) Small bowel obstruction Is this a current diagnosis for this admission?: Yes (5) Lethargy Is this a current diagnosis for this admission?: Yes (6) Clostridium difficile colitis Is this a current diagnosis for this admission?: Yes Plan: Start vancomycin p.o.
[2018-10-15] MEDS: ENALAPRILAT DIHYDRATE INJ/PF 1.25 MG/1 ML SDV IV PRN (20:35)
[2018-10-16] MEDS: POTASSI CL 20 MEQ/D5-1/2NS 1L 1,000 ML IV PRN ×3 (00:13→21:24)
[2018-10-16] MEDS: ENALAPRILAT DIHYDRATE INJ/PF 1.25 MG/1 ML SDV IV PRN (04:17)
[2018-10-16] MEDS: LORAZEPAM INJ 2 MG/1 ML VIAL IV PRN ×2 (06:32→11:47)
[2018-10-16 07:11] LABS: ABSOLUTE EOSINOPHILS # (AUTO) 0.2 10^3/uL (0.0-0.6); ABSOLUTE LYMPHOCYTES (AUTO) 0.6 10^3/uL (0.5-4.7); ABSOLUTE NEUT (AUTO) 4.4 10^3/uL (1.7-8.2); BASOPHILS % (AUTO) 0.6 % (0-2); EOSINOPHILS % (AUTO) 3.9 % (0-6); HEMATOCRIT 30.5 % (36.0-47.0); HEMOGLOBIN 9.8 g/dL (12.0-15.5); LYMPHOCYTES % (AUTO) 9.5 % (13-45); MEAN CORPUSCULAR HEMOGLOBIN 22.4 pg (27.0-33.4); MEAN CORPUSCULAR HGB CONC 32.2 g/dL (32.0-36.0); MEAN CORPUSCULAR VOLUME 70 fl (80-97); MONOCYTES % (AUTO) 15.5 % (3-13); PLATELET COUNT 195 10^3/uL (150-450); RED BLOOD COUNT 4.38 10^6/uL (3.72-5.28); RED CELL DISTRIBUTION WIDTH 22.2 % (11.5-14.0); SEGMENTED NEUTROPHILS % (AUTO) 70.5 % (42-78); TOTAL CELLS COUNTED % (AUTO) 100 %; WHITE BLOOD COUNT 6.2 10^3/uL (4.0-10.5)
[2018-10-16 07:41] LABS: ANION GAP 8 (5-19); BLOOD UREA NITROGEN 3 mg/dL (7-20); CALCIUM 9.1 mg/dL (8.4-10.2); CARBON DIOXIDE 21 mmol/L (22-30); CHLORIDE 109 mmol/L (98-107); GLUCOSE 83 mg/dL (75-110); POTASSIUM 3.8 mmol/L (3.6-5.0); SODIUM 137.6 mmol/L (137-145)
[2018-10-16 07:42] LABS: ANISOCYTOSIS 3+; HYPOCHROMASIA 1+; POIKILOCYTOSIS SLIGHT; POLYCHROMASIA SLIGHT; SCHISTOCYTES SLIGHT; TARGET CELLS 1+; TEAR DROP CELLS 1+
[2018-10-16 07:43] LABS: PLATELET COMMENT ADEQUATE
[2018-10-16] MEDS: HYDROMORPHONE HCL INJ/PF 2 MG/ML AMPULE IV PRN ×3 (08:53→21:39)
[2018-10-16] MEDS: VANCOMYCIN HCL INJ 500 MG VIAL PO SCH ×4 (10:47→21:25)
--- NOTE | 2018-10-16 21:06 | PDOC PROGRESS REPORT ---
Subjective Progress Note for:: 10/16/18 Subjective:: Patient condition is about the same ,had a long discussion with patient's family about CODE STATUS Reason For Visit: ACUTE KIDNEY INJURY Physical Exam Vital Signs: Temp Pulse Resp BP Pulse Ox 97.8 F 67 22 H 193/86 H 99 10/16/18 15:17 10/16/18 19:00 10/16/18 15:17 10/16/18 15:17 10/16/18 15:17 Intake & Output 10/15/18 10/16/18 10/17/18 06:59 06:59 06:59 Intake Total 1647 3380 1200 Output Total 0 Balance 1647 3380 1200 Weight 60.9 kg 57.4 kg General appearance: PRESENT: no acute distress Eye exam: PRESENT: PERRLA Respiratory exam: PRESENT: rhonchi Cardiovascular exam: PRESENT: +S1, +S2 GI/Abdominal exam: PRESENT: soft Neurological exam: PRESENT: alert Results Laboratory Results: 10/16/18 06:55 10/16/18 06:55 10/16/18 10/16/18 06:55 06:55 WBC 6.2 RBC 4.38 Hgb 9.8 L Hct 30.5 L MCV 70 L MCH 22.4 L MCHC 32.2 RDW 22.2 H Plt Count 195 Seg Neutrophils % 70.5 Lymphocytes % 9.5 L Monocytes % 15.5 H Eosinophils % 3.9 Basophils % 0.6 Absolute Neutrophils 4.4 Absolute Lymphocytes 0.6 Absolute Monocytes 1.0 Absolute Eosinophils 0.2 Absolute Basophils 0.0 Sodium 137.6 Potassium 3.8 Chloride 109 H Carbon Dioxide 21 L Anion Gap 8 BUN 3 L Creatinine 0.82 Est GFR ( Amer) > 60 Est GFR (Non-Af Amer) > 60 Glucose 83 Calcium 9.1 Impressions: Renal Ultrasound 10/04/18 00:00 IMPRESSION: Essentially stable imaging appearance of multiple bilateral cysts relative to CT imaging performed 05/09/2018. No acute findings. Abdomen/Pelvis CT 10/05/18 00:00 IMPRESSION: There is a small bowel obstruction with loops measuring up to 4 cm with a transition point in the left mid abdomen. Given some of the appearance of bowel orientation and mesenteric appearance is difficult to exclude an internal hernia. There are multiple enlarged mesenteric masses throughout the abdomen and pelvis, some calcified and diminished size compared with the May 2018 exam. Chest X-Ray 10/05/18 08:00 IMPRESSION: NO SIGNIFICANT RADIOGRAPHIC FINDING IN THE CHEST. KUB X-Ray 10/06/18 15:45 IMPRESSION: Tip of the enteric tube likely in the body of the stomach copyright 2011 [employer]- All Rights Reserved Assessment & Plan - Diagnosis (1) Acute kidney injury Is this a current diagnosis for this admission?: Yes (2) Hypercalcemia Is this a current diagnosis for this admission?: Yes (3) Gastrointestinal stromal tumor (GIST) Is this a current diagnosis for this admission?: Yes (4) Small bowel obstruction Is this a current diagnosis for this admission?: Yes (5) Lethargy Is this a current diagnosis for this admission?: Yes (6) Clostridium difficile colitis Is this a current diagnosis for this admission?: Yes Plan: Continue present treatment
[2018-10-17] MEDS: ENALAPRILAT DIHYDRATE INJ/PF 1.25 MG/1 ML SDV IV PRN ×2 (02:24→09:11)
[2018-10-17] MEDS: POTASSI CL 20 MEQ/D5-1/2NS 1L 1,000 ML IV PRN (07:49)
[2018-10-17] MEDS: VANCOMYCIN HCL INJ 500 MG VIAL PO SCH ×4 (09:11→21:18)
[2018-10-17] MEDS: NITROGLYCERIN/D5W 50 MG/250 ML RTUINJ IV PRN (15:05)
--- NOTE | 2018-10-17 15:58 | ADVANCED CARE ---
- Diagnosis (1) Acute kidney injury Diagnosis Current: Yes (2) Hypercalcemia Diagnosis Current: Yes (3) Gastrointestinal stromal tumor (GIST) Diagnosis Current: Yes (4) Small bowel obstruction Diagnosis Current: Yes (5) Lethargy Diagnosis Current: Yes (6) Clostridium difficile colitis Diagnosis Current: Yes Resuscitation Status: Do Not Resuscitate Discussion: I discussed with family members, the daughter who is the medical decision surrogate for patient, they want patient to be DNR status, she had express that desire in the past
--- NOTE | 2018-10-17 16:43 | PDOC PROGRESS REPORT ---
Subjective Progress Note for:: 10/17/18 Subjective:: Patient seen by the bedside family in the room, she continues to have diarrhea blood pressure is elevated Reason For Visit: ACUTE KIDNEY INJURY Physical Exam Vital Signs: Temp Pulse Resp BP Pulse Ox 98.2 F 80 20 171/75 H 99 10/17/18 10:44 10/17/18 16:00 10/17/18 10:44 10/17/18 16:00 10/17/18 10:44 Intake & Output 10/16/18 10/17/18 10/18/18 06:59 06:59 06:59 Intake Total 3380 2450 2040 Balance 3380 2450 2040 Weight 57.4 kg 58 kg General appearance: PRESENT: no acute distress Eye exam: PRESENT: PERRLA Respiratory exam: PRESENT: clear to auscultation keturah Cardiovascular exam: PRESENT: +S1, +S2 GI/Abdominal exam: PRESENT: soft Neurological exam: PRESENT: alert Results Laboratory Results: 10/16/18 06:55 10/16/18 06:55 Impressions: Renal Ultrasound 10/04/18 00:00 IMPRESSION: Essentially stable imaging appearance of multiple bilateral cysts relative to CT imaging performed 05/09/2018. No acute findings. Abdomen/Pelvis CT 10/05/18 00:00 IMPRESSION: There is a small bowel obstruction with loops measuring up to 4 cm with a transition point in the left mid abdomen. Given some of the appearance of bowel orientation and mesenteric appearance is difficult to exclude an internal hernia. There are multiple enlarged mesenteric masses throughout the abdomen and pelvis, some calcified and diminished size compared with the May 2018 exam. Chest X-Ray 10/05/18 08:00 IMPRESSION: NO SIGNIFICANT RADIOGRAPHIC FINDING IN THE CHEST. KUB X-Ray 10/06/18 15:45 IMPRESSION: Tip of the enteric tube likely in the body of the stomach copyright 2010 [employer]- All Rights Reserved Assessment & Plan - Diagnosis (1) Acute kidney injury Is this a current diagnosis for this admission?: Yes (2) Hypercalcemia Is this a current diagnosis for this admission?: Yes (3) Gastrointestinal stromal tumor (GIST) Is this a current diagnosis for this admission?: Yes (4) Small bowel obstruction Is this a current diagnosis for this admission?: Yes (5) Lethargy Is this a current diagnosis for this admission?: Yes (6) Clostridium difficile colitis Is this a current diagnosis for this admission?: Yes Plan: Continue present treatment,PO vancomycin (7) Hypertensive urgency Is this a current diagnosis for this admission?: Yes Plan: Start nitro drip
[2018-10-17] MEDS: HYDROMORPHONE HCL INJ/PF 2 MG/ML AMPULE IV PRN (17:04)
--- NOTE | 2018-10-18 09:34 | PDOC PROGRESS REPORT ---
Subjective Progress Note for:: 10/18/18 Subjective:: pt up on commode, diarrhea, taking only min po Reason For Visit: ACUTE KIDNEY INJURY Physical Exam Vital Signs: Temp Pulse Resp BP Pulse Ox 98.0 F 63 16 173/84 H 96 10/17/18 23:25 10/18/18 08:00 10/17/18 23:25 10/18/18 08:00 10/17/18 23:25 Intake & Output 10/17/18 10/18/18 10/19/18 06:59 06:59 06:59 Intake Total 2450 2404 Balance 2450 2404 Weight 58 kg 57.2 kg General appearance: PRESENT: no acute distress Head exam: PRESENT: normocephalic Eye exam: PRESENT: EOMI Mouth exam: PRESENT: moist Neck exam: PRESENT: full ROM Respiratory exam: PRESENT: clear to auscultation keturah Cardiovascular exam: PRESENT: RRR GI/Abdominal exam: PRESENT: soft - abd soft, non tender wound healing well Rectal exam: PRESENT: deferred Extremities exam: PRESENT: full ROM Musculoskeletal exam: PRESENT: ambulatory Skin exam: PRESENT: dry Results Laboratory Results: 10/16/18 06:55 10/16/18 06:55 Impressions: Renal Ultrasound 10/04/18 00:00 IMPRESSION: Essentially stable imaging appearance of multiple bilateral cysts relative to CT imaging performed 05/09/2018. No acute findings. Abdomen/Pelvis CT 10/05/18 00:00 IMPRESSION: There is a small bowel obstruction with loops measuring up to 4 cm with a transition point in the left mid abdomen. Given some of the appearance of bowel orientation and mesenteric appearance is difficult to exclude an internal hernia. There are multiple enlarged mesenteric masses throughout the abdomen and pelvis, some calcified and diminished size compared with the May 2018 exam. Chest X-Ray 10/05/18 08:00 IMPRESSION: NO SIGNIFICANT RADIOGRAPHIC FINDING IN THE CHEST. KUB X-Ray 10/06/18 15:45 IMPRESSION: Tip of the enteric tube likely in the body of the stomach copyright 2011 [employer] [facility] [employer] All Rights Reserved Assessment & Plan - Diagnosis (1) Abdominal pain Qualifiers: Abdominal location: generalized Qualified Code(s): R10.84 - Generalized abdominal pain Is this a current diagnosis for this admission?: Yes (2) GIST (gastrointestinal stromal tumor), malignant Qualifiers: Malignant gastrointestinal stromal tumor location: small intestine Qualified Code(s): C49.A3 - Gastrointestinal stromal tumor of small intestine Is this a current diagnosis for this admission?: Yes (3) Small bowel obstruction Is this a current diagnosis for this admission?: Yes - Plan Summary Plan Summary: s/p exploratory laparotomy for intussusception due to gist now with return of bowel function + diarrhea due to c-diff wound well healed will dc jun surgery will sign off.
[2018-10-18] MEDS: VANCOMYCIN HCL INJ 500 MG VIAL PO SCH ×4 (11:10→21:55)
[2018-10-18] MEDS: HYDROMORPHONE HCL INJ/PF 2 MG/ML AMPULE IV PRN ×2 (15:41→23:09)
[2018-10-18] MEDS: NITROGLYCERIN/D5W 50 MG/250 ML RTUINJ IV PRN (20:37)
--- NOTE | 2018-10-18 21:30 | PDOC PROGRESS REPORT ---
Subjective Progress Note for:: 10/18/18 Subjective:: She was seen by the bedside she has episode of confusion and also lucidity Reason For Visit: ACUTE KIDNEY INJURY Physical Exam Vital Signs: Temp Pulse Resp BP Pulse Ox 98.0 F 68 13 167/63 H 99 10/18/18 19:43 10/18/18 20:45 10/18/18 19:43 10/18/18 20:45 10/18/18 19:43 Intake & Output 10/17/18 10/18/18 10/19/18 06:59 06:59 06:59 Intake Total 2450 2404 490 Balance 2450 2404 490 Weight 58 kg 57.2 kg General appearance: PRESENT: no acute distress Eye exam: PRESENT: PERRLA Respiratory exam: PRESENT: clear to auscultation keturah Cardiovascular exam: PRESENT: +S1, +S2 GI/Abdominal exam: PRESENT: soft Neurological exam: PRESENT: alert Results Laboratory Results: 10/16/18 06:55 10/16/18 06:55 Impressions: Renal Ultrasound 10/04/18 00:00 IMPRESSION: Essentially stable imaging appearance of multiple bilateral cysts relative to CT imaging performed 05/09/2018. No acute findings. Abdomen/Pelvis CT 10/05/18 00:00 IMPRESSION: There is a small bowel obstruction with loops measuring up to 4 cm with a transition point in the left mid abdomen. Given some of the appearance of bowel orientation and mesenteric appearance is difficult to exclude an internal hernia. There are multiple enlarged mesenteric masses throughout the abdomen and pelvis, some calcified and diminished size compared with the May 2018 exam. Chest X-Ray 10/05/18 08:00 IMPRESSION: NO SIGNIFICANT RADIOGRAPHIC FINDING IN THE CHEST. KUB X-Ray 10/06/18 15:45 IMPRESSION: Tip of the enteric tube likely in the body of the stomach copyright 2010 [facility]- All Rights Reserved Assessment & Plan - Diagnosis (1) Acute kidney injury Is this a current diagnosis for this admission?: Yes (2) Hypercalcemia Is this a current diagnosis for this admission?: Yes (3) Gastrointestinal stromal tumor (GIST) Is this a current diagnosis for this admission?: Yes (4) Small bowel obstruction Is this a current diagnosis for this admission?: Yes (5) Lethargy Is this a current diagnosis for this admission?: Yes (6) Clostridium difficile colitis Is this a current diagnosis for this admission?: Yes Plan: Continue p.o. vancomycin (7) Hypertensive urgency Is this a current diagnosis for this admission?: Yes Plan: Discontinue IV nitroglycerin, start p.o. medication
[2018-10-18] MEDS: DONEPEZIL HCL 5 MG TABLET PO SCH (21:56)
[2018-10-18] MEDS ORDERED: (PENDING PHARMACY ID) (Pramipexole Di-Hcl [Mirapex] 0.125 MG) PO SCH (22:00)
[2018-10-19] MEDS: ENALAPRILAT DIHYDRATE INJ/PF 1.25 MG/1 ML SDV IV PRN ×2 (01:39→11:48)
[2018-10-19] MEDS: VANCOMYCIN HCL INJ 500 MG VIAL PO SCH ×4 (09:16→22:10)
[2018-10-19] MEDS: HYDROCHLOROTHIAZIDE 25 MG TABLET PO SCH (09:17)
[2018-10-19] MEDS: LOSARTAN POTASSIUM 50 MG TABLET PO SCH (09:17)
[2018-10-19] MEDS ORDERED: (PENDING PHARMACY ID) (Olmesartan/Hydrochlorothiazide [Olmesartan-Hctz 40-25 Mg Tab] 1 EAC PO SCH (10:00)
[2018-10-19] MEDS: METOPROLOL TARTRATE 25 MG TABLET PO SCH ×2 (18:24→23:40)
[2018-10-19] MEDS: HYDRALAZINE HCL 25 MG TABLET PO SCH ×2 (18:24→23:41)
--- NOTE | 2018-10-19 21:46 | PDOC PROGRESS REPORT ---
Subjective Progress Note for:: 10/19/18 Subjective:: Patient seen by the bedside, she still has some loose stool Reason For Visit: ACUTE KIDNEY INJURY Physical Exam Vital Signs: Temp Pulse Resp BP Pulse Ox 98.5 F 58 L 19 141/61 H 98 10/19/18 19:33 10/19/18 19:33 10/19/18 19:33 10/19/18 19:33 10/19/18 19:33 Intake & Output 10/18/18 10/19/18 10/20/18 06:59 06:59 06:59 Intake Total 2404 518 100 Balance 2404 518 100 Weight 57.2 kg 53.5 kg General appearance: PRESENT: no acute distress Eye exam: PRESENT: PERRLA Mouth exam: PRESENT: moist, tongue midline Neck exam: PRESENT: full ROM Cardiovascular exam: PRESENT: RRR, +S1, +S2 Vascular exam: PRESENT: normal capillary refill GI/Abdominal exam: PRESENT: normal bowel sounds, soft Rectal exam: PRESENT: deferred Neurological exam: PRESENT: alert, CN II-XII grossly intact Psychiatric exam: PRESENT: appropriate affect, normal mood Skin exam: PRESENT: dry, intact, warm Results Laboratory Results: 10/16/18 06:55 10/16/18 06:55 Impressions: Renal Ultrasound 10/04/18 00:00 IMPRESSION: Essentially stable imaging appearance of multiple bilateral cysts relative to CT imaging performed 05/09/2018. No acute findings. Abdomen/Pelvis CT 10/05/18 00:00 IMPRESSION: There is a small bowel obstruction with loops measuring up to 4 cm with a transition point in the left mid abdomen. Given some of the appearance of bowel orientation and mesenteric appearance is difficult to exclude an internal hernia. There are multiple enlarged mesenteric masses throughout the abdomen and pelvis, some calcified and diminished size compared with the May 2018 exam. Chest X-Ray 10/05/18 08:00 IMPRESSION: NO SIGNIFICANT RADIOGRAPHIC FINDING IN THE CHEST. KUB X-Ray 10/06/18 15:45 IMPRESSION: Tip of the enteric tube likely in the body of the stomach copyright 2010 [employer]- All Rights Reserved Assessment & Plan - Diagnosis (1) Acute kidney injury Is this a current diagnosis for this admission?: Yes (2) Hypercalcemia Is this a current diagnosis for this admission?: Yes (3) Gastrointestinal stromal tumor (GIST) Is this a current diagnosis for this admission?: Yes (4) Small bowel obstruction Is this a current diagnosis for this admission?: Yes (5) Lethargy Is this a current diagnosis for this admission?: Yes (6) Clostridium difficile colitis Is this a current diagnosis for this admission?: Yes (7) Hypertensive urgency Is this a current diagnosis for this admission?: Yes
[2018-10-19] MEDS: DONEPEZIL HCL 5 MG TABLET PO SCH (22:10)
[2018-10-19] MEDS ORDERED: PRAMIPEXOLE DI-HCL 0.5 MG TABLET ONE (22:43)
[2018-10-19] MEDS: PRAMIPEXOLE DI-HCL 0.25 MG TABLET PO SCH (23:42)
[2018-10-20] MEDS: HYDRALAZINE HCL 25 MG TABLET PO SCH ×3 (05:11→21:35)
[2018-10-20] MEDS: LOSARTAN POTASSIUM 50 MG TABLET PO SCH (10:34)
[2018-10-20] MEDS: VANCOMYCIN HCL INJ 500 MG VIAL PO SCH ×4 (10:35→21:36)
[2018-10-20] MEDS: METOPROLOL TARTRATE 25 MG TABLET PO SCH ×2 (10:35→21:35)
[2018-10-20] MEDS: HYDROCHLOROTHIAZIDE 25 MG TABLET PO SCH (10:35)
--- NOTE | 2018-10-20 13:57 | PDOC PROGRESS REPORT ---
Subjective Progress Note for:: 10/20/18 Subjective:: Patient seen by the bedside the plan is to transfer to the [facility] once the diarrhea subside Reason For Visit: ACUTE KIDNEY INJURY Physical Exam Vital Signs: Temp Pulse Resp BP Pulse Ox 98.4 F 56 L 17 157/74 H 97 10/20/18 12:09 10/20/18 12:09 10/20/18 12:09 10/20/18 12:09 10/20/18 12:09 Intake & Output 10/19/18 10/20/18 10/21/18 06:59 06:59 06:59 Intake Total 518 100 100 Output Total 150 Balance 518 100 -50 Weight 53.5 kg 53 kg General appearance: PRESENT: no acute distress Eye exam: PRESENT: PERRLA Respiratory exam: PRESENT: clear to auscultation keturah Cardiovascular exam: PRESENT: +S1, +S2 GI/Abdominal exam: PRESENT: soft Neurological exam: PRESENT: alert Results Laboratory Results: 10/16/18 06:55 10/16/18 06:55 Impressions: Renal Ultrasound 10/04/18 00:00 IMPRESSION: Essentially stable imaging appearance of multiple bilateral cysts relative to CT imaging performed 05/09/2018. No acute findings. Abdomen/Pelvis CT 10/05/18 00:00 IMPRESSION: There is a small bowel obstruction with loops measuring up to 4 cm with a transition point in the left mid abdomen. Given some of the appearance of bowel orientation and mesenteric appearance is difficult to exclude an property management intern al hernia. There are multiple enlarged mesenteric masses throughout the abdomen and pelvis, some calcified and diminished size compared with the May 2018 exam. Chest X-Ray 10/05/18 08:00 IMPRESSION: NO SIGNIFICANT RADIOGRAPHIC FINDING IN THE CHEST. KUB X-Ray 10/06/18 15:45 IMPRESSION: Tip of the enteric tube likely in the body of the stomach copyright 2010 [employer]- All Rights Reserved Assessment & Plan - Diagnosis (1) Acute kidney injury Is this a current diagnosis for this admission?: Yes (2) Hypercalcemia Is this a current diagnosis for this admission?: Yes (3) Gastrointestinal stromal tumor (GIST) Is this a current diagnosis for this admission?: Yes (4) Small bowel obstruction Is this a current diagnosis for this admission?: Yes (5) Lethargy Is this a current diagnosis for this admission?: Yes (6) Clostridium difficile colitis Is this a current diagnosis for this admission?: Yes (7) Hypertensive urgency Is this a current diagnosis for this admission?: Yes
[2018-10-20 17:16] LABS: ANION GAP 8 (5-19); BLOOD UREA NITROGEN 8 mg/dL (7-20); CALCIUM 9.6 mg/dL (8.4-10.2); CARBON DIOXIDE 26 mmol/L (22-30); CHLORIDE 104 mmol/L (98-107); GLUCOSE 88 mg/dL (75-110); POTASSIUM 3.2 mmol/L (3.6-5.0); SODIUM 138.4 mmol/L (137-145)
[2018-10-20 17:51] LABS: HEMOGLOBIN 10.5 g/dL (12.0-15.5); MEAN CORPUSCULAR HGB CONC 31.7 g/dL (32.0-36.0); MEAN CORPUSCULAR VOLUME 69 fl (80-97); PLATELET COUNT 271 10^3/uL (150-450); RED BLOOD COUNT 4.77 10^6/uL (3.72-5.28); RED CELL DISTRIBUTION WIDTH 21.9 % (11.5-14.0); WHITE BLOOD COUNT 6.6 10^3/uL (4.0-10.5)
[2018-10-20 18:20] LABS: ABSOLUTE LYMPHOCYTES# (MANUAL) 2.3 10^3/uL (0.5-4.7); ABSOLUTE MONOCYTES # (MANUAL) 0.1 10^3/uL (0.1-1.4); ABSOLUTE NEUTROPHILS# (MANUAL) 3.9 10^3/uL (1.7-8.2); ANISOCYTOSIS 3+; BASOPHILS % (MANUAL) 3 % (0-2); EOSINOPHILS % (MANUAL) 1 % (0-6); HYPOCHROMASIA 2+; LYMPHOCYTES % (MANUAL) 35 % (13-45); MONOCYTES % (MANUAL) 2 % (3-13); OVALOCYTES 1+; PLATELET COMMENT ADEQUATE; PLATELET GIANT PRESENT; POIKILOCYTOSIS 2+; SEGMENTED NEUTROPHILS % (MAN) 59 % (42-78); TARGET CELLS 2+; TOTAL CELLS COUNTED 100
[2018-10-20] MEDS: DONEPEZIL HCL 5 MG TABLET PO SCH (21:35)
[2018-10-20] MEDS: PRAMIPEXOLE DI-HCL 0.25 MG TABLET PO SCH (21:36)
[2018-10-21] MEDS: HYDRALAZINE HCL 25 MG TABLET PO SCH ×2 (05:54→14:29)
--- NOTE | 2018-10-21 11:49 | PDOC TRANSFER SUMMARY ---
General - Admit/Disc Date/PCP Admission Date/Primary Care Provider: 10/04/18 15:59 WILIAN REID MD Discharge Date: 10/21/18 - Discharge Diagnosis (1) Acute kidney injury Is this a current diagnosis for this admission?: Yes (2) Hypercalcemia Is this a current diagnosis for this admission?: Yes (3) Gastrointestinal stromal tumor (GIST) Is this a current diagnosis for this admission?: Yes (4) Small bowel obstruction Is this a current diagnosis for this admission?: Yes (5) Lethargy Is this a current diagnosis for this admission?: Yes (6) Clostridium difficile colitis Is this a current diagnosis for this admission?: Yes (7) Hypertensive urgency Is this a current diagnosis for this admission?: Yes - Additional Information Resuscitation Status: Do Not Resuscitate Prescriptions: Imatinib Mesylate [Gleevec] 100 mg PO DAILY #300 tablet Home Medications: RX: Donepezil HCl [Aricept 5 mg Tablet] 5 mg PO QHS 10/04/18 RX: Olmesartan/Hydrochlorothiazide [Olmesartan-Hctz 40-25 mg Tab] 1 each PO DAILY 10/04/18 RX: Pramipexole Di-HCl [Mirapex] 0.125 mg PO QHS 10/04/18 Imatinib Mesylate [Gleevec] 100 mg PO DAILY #300 tablet 10/21/18 RX: Metoprolol Tartrate [Lopressor 25 mg Tablet] 25 mg PO Q12 tablet 10/21/18 History of Present Illness Admission Date/PCP: 10/04/18 15:59 WILIAN REID MD History of Present Illness: SAHRA GOMEZ is a 78 year old female, she has a history of gastro- intestinal stromal tumor, malignant, she is supposed to be on Gleevec but she is extremely noncompliant with the medication, she came to the office with her daughter because she was not feeling well, she has many nonspecific symptoms, she was pale looking,, she was evaluated in the office, she looks acutely ill, it was felt that she needed to be admitted to the hospital. 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 Patient also continued to smoke cigarette despite the comp lications of tobacco Hospital Course Hospital Course: Patient was admitted for the management of small bowel obstruction, C. difficile colitis, she has a history of gastrointestinal stromal tumor, SIADH, she was admitted directly from the office when she came for evaluation of abdominal symptoms, KUB and subsequent CT scan of the abdomen and pelvis demonstrated transition point suggesting obstruction, she was seen by the surgeon, she underwent laparotomy, she was found to have adhesions and multiple masses in the GI tract consistent with gastrointestinal stromal tumor. She also had diarrhea, the stool was positive for C. difficile toxin, she was treated with p.o. vancomycin. She had episode of hypertensive urgency requiring intravenous nitroglycerin infusion, subsequently transitioned to p.o. medications for the control blood pressure. She was made a DNR status on this admission, she is been transferred to the [facility] for rehabilitation and physical therapy. Physical Exam Vital Signs: Temp Pulse Resp BP Pulse Ox 98.5 F 73 19 158/66 H 98 10/21/18 08:05 10/21/18 08:05 10/21/18 08:05 10/21/18 08:05 10/21/18 08:05 Intake & Output 10/20/18 10/21/18 10/22/18 06:59 06:59 06:59 Intake Total 100 230 Output Total 225 Balance 100 5 Weight 53 kg 50.2 kg General appearance: PRESENT: no acute distress Head exam: PRESENT: atraumatic, normocephalic Eye exam: PRESENT: PERRLA Respiratory exam: PRESENT: clear to auscultation keturah Cardiovascular exam: PRESENT: RRR, +S1, +S2 Pulses: PRESENT: normal dorsalis pedis pul Vascular exam: PRESENT: normal capillary refill GI/Abdominal exam: PRESENT: normal bowel sounds, soft Rectal exam: PRESENT: deferred Extremities exam: PRESENT: full ROM Neurological exam: PRESENT: alert Psychiatric exam: PRESENT: appropriate affect, normal mood Skin exam: PRESENT: dry, intact, warm Results Laboratory Results: 10/20/18 16:51 10/20/18 16:51 10/20/18 10/20/18 16:51 16:51 WBC 6.6 RBC 4.77 Hgb 10.5 L Hct 33.0 L MCV 69 L MCH 22.0 L MCHC 31.7 L RDW 21.9 H Plt Count 271 Seg Neutrophils % Not Reportable Lymphocytes % Not Reportable Monocytes % Not Reportable Eosinophils % Not Reportable Basophils % Not Reportable Absolute Neutrophils Not Reportable Absolute Lymphocytes Not Reportable Absolute Monocytes Not Reportable Absolute Eosinophils Not Reportable Absolute Basophils Not Reportable Sodium 138.4 Potassium 3.2 L Chloride 104 Carbon Dioxide 26 Anion Gap 8 BUN 8 Creatinine 0.92 Est GFR ( Amer) > 60 Est GFR (Non-Af Amer) 59 L Glucose 88 Calcium 9.6 Impressions: Renal Ultrasound 10/04/18 00:00 IMPRESSION: Essentially stable imaging appearance of multiple bilateral cysts relative to CT imaging performed 05/09/2018. No acute findings. Abdomen/Pelvis CT 10/05/18 00:00 IMPRESSION: There is a small bowel obstruction with loops measuring up to 4 cm with a transition point in the left mid abdomen. Given some of the appearance of bowel orientation and mesenteric appearance is difficult to exclude an internal hernia. There are multiple enlarged mesenteric masses throughout the abdomen and pelvis, some calcified and diminished size compared with the May 2018 exam. Chest X-Ray 10/05/18 08:00 IMPRESSION: NO SIGNIFICANT RADIOGRAPHIC FINDING IN THE CHEST. KUB X-Ray 10/06/18 15:45 IMPRESSION: Tip of the enteric tube likely in the body of the stomach copyright 2010 [email or web address] [facility] [employer]- All Rights Reserved Qualifiers - * PATIENT BEING DISCHARGED WITH ANY OF THE FOLLOWING DIAGNOSIS: No Acute Heart Failure Is this a Heart Failure Patient?: No
[2018-10-21] MEDS: METOPROLOL TARTRATE 25 MG TABLET PO SCH (12:38)
[2018-10-21] MEDS: LOSARTAN POTASSIUM 50 MG TABLET PO SCH (12:39)
[2018-10-21] MEDS: VANCOMYCIN HCL INJ 500 MG VIAL PO SCH ×3 (12:39→17:24)
[2018-10-21] MEDS: HYDROCHLOROTHIAZIDE 25 MG TABLET PO SCH (12:39)
[2018-10-21 17:13] VITALS: BP 147/78
== END 2018-10-21 17:51 | DRG 982 ==
LOC: ER 15:16 → OBSVTOIN 15:59 → EH 15:59 → INTOOBSV 15:59 → 3S 21:45
PROVIDERS: ADMIT Internal Medicine; ATTEND Internal Medicine
PROC: 0DBV0ZX Excision of Mesentery, Open Approach, Diagnostic (ICD-10-PCS; 2018-10-06)
PROC: 0DB80ZX Excision of Small Intestine, Open Approach, Diagnostic (ICD-10-PCS; 2018-10-06)
PROC: 0D9670Z Drainage of Stomach with Drainage Device, Via Natural or Artificial Opening (ICD-10-PCS; 2018-10-06)
PROC: 0DN80ZZ Release Small Intestine, Open Approach (ICD-10-PCS; principal; 2018-10-06 11:00)
PROC: 30233N1 Transfusion of Nonautologous Red Blood Cells into Peripheral Vein, Percutaneous Approach (ICD-10-PCS; 2018-10-15)
DX: C49.A3 Gastrointestinal stromal tumor of small intestine (principal); N17.9 Acute kidney failure, unspecified; A04.72 Enterocolitis due to Clostridium difficile, not specified as recurrent; E22.2 Syndrome of inappropriate secretion of antidiuretic hormone; R71.0 Precipitous drop in hematocrit; K66.0 Peritoneal adhesions (postprocedural) (postinfection); N28.1 Cyst of kidney, acquired; I10 Essential (primary) hypertension; E83.52 Hypercalcemia; Z91.14 Patient's other noncompliance with medication regimen; J44.9 Chronic obstructive pulmonary disease, unspecified; I16.0 Hypertensive urgency; Z66 Do not resuscitate; M19.90 Unspecified osteoarthritis, unspecified site; Z86.73 Personal history of transient ischemic attack (TIA), and cerebral infarction without residual deficits; F17.210 Nicotine dependence, cigarettes, uncomplicated; Z88.2 Allergy status to sulfonamides; Z79.899 Other long term (current) drug therapy
CPT/HCPCS: 36415; 36430; 71045; 74018; 74176; 76775; 790; 80048; 80053; 80076; 81001; 82962; 83735; 83970; 85025; 85027; 85610; 86850; 86870; 86900; 86901; 86902; 86920; 86922; 87040; 87086; 87493; 88307; 88341; 88342; 99285; G0378; G0379; J0131; J0330; J0690; J1100; J1170; J2060; J2250; J2270; J2405; J2704; J2710; J3010; J3370; J3480; J3490; J7030; P9016

== ENCOUNTER 2019-01-08 12:38 | Inpatient (IN) | payer MEDICARE, BC ==
--- NOTE | 2019-01-08 13:15 | ER Document Report ---
ED Medical Screen (RME) - General Chief Complaint: Altered Mental Status Stated Complaint: ABNORMAL LABS Time Seen by Provider: 01/08/19 13:00 Primary Care Provider: WILIAN REID MD [Primary Care Provider] - Follow up as needed Mode of Arrival: Wheelchair Information source: Patient, Relative - Daughter Notes: Patient is a 78-year-old female currently undergoing treatment for gastrointestinal tumors presenting with complaint of abnormal labs. Patient had a CBC drawn yesterday at her oncologist office, states her hemoglobin was 9. Her daughter reports that she has been slightly confused lately, daughter reports that she has a history of hyponatremia and she thinks this may be an issue today. Patient denies any acute complaints. Patient is answering questions appropriately. Exam: Heart sounds S1-S2 present with no ectopy noted. Lung sounds clear and equal bilaterally. I have greeted and performed a rapid initial assessment of this patient. A comprehensive ED assessment and evaluation of the patient, analysis of test results and completion of the medical decision making process will be conducted by additional ED providers. I have specifically instructed the patient or family members with the patient to immediately return to any nursing staff should anything change in the patient's condition or with their chief complaint. This medical record was dictated with voice recognizing software. There may be grammatical, syntax errors that are unintended. TRAVEL OUTSIDE OF THE [place] IN LAST 30 DAYS: No - Related Data Allergies/Adverse Reactions: Sulfa (Sulfonamide Antibiotics) Allergy (Verified 10/04/18 15:20) Past Medical History - Past Medical History Cardiac Medical History: Reports: Hx Hypertension Pulmonary Medical History: Reports: Hx COPD Neurological Medical History: Reports: Hx Cerebrovascular Accident. Denies: Hx Seizures Renal/ Medical History: Denies: Hx Peritoneal Dialysis Musculoskeltal Medical History: Reports Hx Arthritis Psychiatric Medical History: Reports: Hx Depression Past Surgical History: Reports: Hx Abdominal Surgery, Hx Cholecystectomy, Hx Hysterectomy - Immunizations Immunizations up to date: Yes Hx Diphtheria, Pertussis, Tetanus Vaccination: Yes History of Influenza Vaccine for 03/2017 - 08/2017 Season: Yes Influenza Administration Date for 03/2017 - 08/2017 Season: 03/05/17 Physical Exam - Vital signs Vitals: Temp Pulse Resp BP Pulse Ox 98.6 F 89 18 158/73 H 99 01/08/19 12:44 01/08/19 12:44 01/08/19 12:44 01/08/19 12:44 01/08/19 12:44 Course - Vital Signs Vital signs: Temp Pulse Resp BP Pulse Ox 98.6 F 89 18 158/73 H 99 01/08/19 12:44 01/08/19 12:44 01/08/19 12:44 01/08/19 12:44 01/08/19 12:44 Doctor's Discharge - Discharge Referrals: WILIAN REID MD [Primary Care Provider] - Follow up as needed
[2019-01-08 13:57] LABS: HEMATOCRIT 33.1 % (36.0-47.0); HEMOGLOBIN 10.4 g/dL (12.0-15.5); MEAN CORPUSCULAR HEMOGLOBIN 21.1 pg (27.0-33.4); MEAN CORPUSCULAR HGB CONC 31.5 g/dL (32.0-36.0); MEAN CORPUSCULAR VOLUME 67 fl (80-97); PLATELET COUNT 141 10^3/uL (150-450); RED BLOOD COUNT 4.94 10^6/uL (3.72-5.28); RED CELL DISTRIBUTION WIDTH 18.6 % (11.5-14.0); WHITE BLOOD COUNT 5.8 10^3/uL (4.0-10.5)
[2019-01-08 14:17] LABS: ALBUMIN 4.6 g/dL (3.5-5.0); ALKALINE PHOSPHATASE 75 U/L (38-126); ANION GAP 10 (5-19); ASPARTATE AMINO TRANSFERASE 54 U/L (14-36); BILIRUBIN,DIRECT 0.5 mg/dL (0.0-0.4); BILIRUBIN,TOTAL 1.3 mg/dL (0.2-1.3); BLOOD UREA NITROGEN 30 mg/dL (7-20); CALCIUM 10.1 mg/dL (8.4-10.2); CARBON DIOXIDE 28 mmol/L (22-30); CHLORIDE 91 mmol/L (98-107); GLUCOSE 113 mg/dL (75-110); POTASSIUM 3.9 mmol/L (3.6-5.0); TOTAL PROTEIN 7.2 g/dL (6.3-8.2)
[2019-01-08 14:23] LABS: ABSOLUTE LYMPHOCYTES# (MANUAL) 0.5 10^3/uL (0.5-4.7); ABSOLUTE MONOCYTES # (MANUAL) 0.1 10^3/uL (0.1-1.4); ANISOCYTOSIS 2+; BASOPHILS % (MANUAL) 1 % (0-2); EOSINOPHILS % (MANUAL) 0 % (0-6); LYMPHOCYTES % (MANUAL) 8 % (13-45); MONOCYTES % (MANUAL) 2 % (3-13); PLATELET COMMENT DECREASED; SEGMENTED NEUTROPHILS % (MAN) 89 % (42-78); TOTAL CELLS COUNTED 100
[2019-01-08 14:25] LABS: PLATELET LARGE PRESENT; TARGET CELLS 2+
--- NOTE | 2019-01-08 15:33 | ER Document Report ---
ED General - General Chief Complaint: Altered Mental Status Stated Complaint: ABNORMAL LABS Time Seen by Provider: 01/08/19 13:00 Primary Care Provider: WILIAN REID MD [Primary Care Provider] - Follow up as needed Mode of Arrival: Wheelchair TRAVEL OUTSIDE OF THE [place] IN LAST 30 DAYS: No - HPI Patient complains to provider of: ams Notes: patient w/ history of GI tumor s/p resection presenting for confusion family states she becomes confused like this when dehydrated and having low sodium they deny fever, vomiting, diarrhea, cough or other signs of illness - Related Data Allergies/Adverse Reactions: Sulfa (Sulfonamide Antibiotics) Allergy (Verified 10/04/18 15:20) Past Medical History - General Information source: Patient, Relative - Daughter - Social History Smoking Status: Current Some Day Smoker Family History: Reviewed & Not Pertinent Patient has suicidal ideation: No Patient has homicidal ideation: No - Past Medical History Cardiac Medical History: Reports: Hx Hypertension Pulmonary Medical History: Reports: Hx COPD Neurological Medical History: Reports: Hx Cerebrovascular Accident. Denies: Hx Seizures Renal/ Medical History: Denies: Hx Peritoneal Dialysis Musculoskeletal Medical History: Reports Hx Arthritis Psychiatric Medical History: Reports: Hx Depression Past Surgical History: Reports: Hx Abdominal Surgery, Hx Cholecystectomy, Hx Hysterectomy - Immunizations Immunizations up to date: Yes Hx Diphtheria, Pertussis, Tetanus Vaccination: Yes Hx Pneumococcal Vaccination: 03/20/14 Review of Systems - Review of Systems Constitutional: No symptoms reported EENT: No symptoms reported Cardiovascular: No symptoms reported Respiratory: No symptoms reported Gastrointestinal: No symptoms reported Genitourinary: No symptoms reported Female Genitourinary: No symptoms reported Musculoskeletal: No symptoms reported Skin: No symptoms reported Hematologic/Lymphatic: No symptoms reported Neurological/Psychological: Confusion Physical Exam - Vital signs Vitals: Temp Pulse Resp BP Pulse Ox 98.6 F 89 18 158/73 H 99 01/08/19 12:44 01/08/19 12:44 01/08/19 12:44 01/08/19 12:44 01/08/19 12:44 Interpretation: Normal - General General appearance: Appears well, Alert - HEENT Head: Normocephalic, Atraumatic Eyes: Normal Pupils: PERRL - Respiratory Respiratory status: No respiratory distress Chest status: Nontender Breath sounds: Normal Chest palpation: Normal - Cardiovascular Rhythm: Regular Heart sounds: Normal auscultation Murmur: No - Abdominal Inspection: Normal Distension: No distension Bowel sounds: Normal Tenderness: Nontender Organomegaly: No organomegaly - Back Back: Normal, Nontender - Extremities General upper extremity: Normal inspection, Nontender, Normal color, Normal ROM, Normal temperature General lower extremity: Normal inspection, Nontender, Normal color, Normal ROM, Normal temperature, Normal weight bearing. No: Ara's sign - Neurological Neuro grossly intact: Yes Cognition: Normal Orientation: Disoriented to place, Disoriented to time, Disoriented to events Jose Coma Scale Eye Opening: Spontaneous Jose Coma Scale Verbal: Oriented Jose Coma Scale Motor: Obeys Commands Bridger Coma Scale Total: 15 Speech: Normal Motor strength normal: LUE, RUE, LLE, RLE Sensory: Normal - Psychological Associated symptoms: Normal affect, Normal mood - Skin Skin Temperature: Warm Skin Moisture: Dry Skin Color: Normal Course - Re-evaluation Re-evalutation: 01/08/19 15:33 confused w/ TAMMY and hyponatremia ivf bolus ordered will scan head and add ammonia level to work up will admit for ongoing confusion - Vital Signs Vital signs: Temp Pulse Resp BP Pulse Ox 98.6 F 89 18 158/73 H 99 01/08/19 12:44 01/08/19 12:44 01/08/19 12:44 01/08/19 12:44 01/08/19 12:44 - Laboratory Result Diagrams: 01/08/19 13:30 01/08/19 13:30 Laboratory results interpreted by me: 01/08/19 01/08/19 01/08/19 13:30 13:30 15:54 Hgb 10.4 L Hct 33.1 L MCV 67 L MCH 21.1 L MCHC 31.5 L RDW 18.6 H Plt Count 141 L Seg Neuts % (Manual) 89 H Lymphocytes % (Manual) 8 L Monocytes % (Manual) 2 L Sodium 129.2 L Chloride 91 L BUN 30 H Creatinine 1.84 H Est GFR ( Amer) 32 L Est GFR (Non-Af Amer) 27 L Glucose 113 H Direct Bilirubin 0.5 H AST 54 H Ammonia Urine Blood SMALL H Ur Leukocyte Esterase SMALL H 01/08/19 16:11 Hgb Hct MCV MCH MCHC RDW Plt Count Seg Neuts % (Manual) Lymphocytes % (Manual) Monocytes % (Manual) Sodium Chloride BUN Creatinine Est GFR ( Amer) Est GFR (Non-Af Amer) Glucose Direct Bilirubin AST Ammonia < 8.7 L Urine Blood Ur Leukocyte Esterase - Consults No standard instances Time consulted: 16:54 Reason for consultation: 01/08/19 16:54 Dr Martin consulted for admission Discharge - Discharge Clinical Impression: Encephalopathy acute, Hyponatremia, GIST (gastrointestinal stroma tumor), malignant, colon, Acute kidney injury Condition: Stable Disposition: ADMITTED INPATIENT Admitting Provider: Mario Unit Admitted: Telemetry Referrals: WILIAN REID MD [Primary Care Provider] - Follow up as needed
[2019-01-08] MEDS ORDERED: NORMAL SALINE 1000 ML 1,000 ML IV ONE (15:54)
[2019-01-08 16:05] LABS: AMORPHOUS SEDIMENT,URINE TRACE /HPF; APPEARANCE,URINE SLIGHTLY-CLOUDY; BILIRUBIN,URINE NEGATIVE (NEGATIVE); COLOR,URINE YELLOW; GLUCOSE, URINE NEGATIVE (NEGATIVE); KETONES,URINE NEGATIVE (NEGATIVE); LEUKOCYTE ESTERASE,URINE SMALL (NEGATIVE); NITRITE,URINE NEGATIVE (NEGATIVE); PROTEIN,URINE NEGATIVE (NEGATIVE); URINE SPECIFIC GRAVITY 1.013; UROBILINOGEN,URINE NEGATIVE mg/dL (<2.0)
[2019-01-08] MEDS ORDERED: CEFTRIAXONE 1 GM/D5W RTU 1 GM/50 ML RTUPB IV ONE (16:12)
[2019-01-08] MEDS ORDERED: CEFTRIAXONE INJ 1000 MG VIAL ONE (16:23)
--- NOTE | 2019-01-08 16:42 | RADIOLOGY REPORT (SQ) ---
EXAM DESCRIPTION: CT HEAD WITHOUT COMPLETED DATE/TIME: 01/08/2019 4:19 pm REASON FOR STUDY: altered mental status COMPARISON: 04/29/2015 TECHNIQUE: Axial images acquired through the brain without intravenous contrast. Images reviewed wi th bone, brain and subdural windows. Additional sagittal and coronal reconstructions were generated. Images stored on PACS. All CT scanners at this facility use dose modulation, iterative reconstruction, and/or weight based d osing when appropriate to reduce radiation dose to as low as reasonably achievable (ALARA). [facility]: Dose Right [facility]: CareDose [facility]: Dose Right [facility]: Teradose 4D [facility]: [facility] RADIATION DOSE: CT Rad equipment meets quality standard of care and radiation dose reduction techniq ues were employed. CTDIvol: 53.2 mGy. DLP: 1097 mGy-cm. mGy. LIMITATIONS: None. FINDINGS: VENTRICLES: Prominent. CEREBRUM: No masses. No hemorrhage. No midline shift. Areas of low density in the white matter mos t likely due to chronic micro-vascular ischemic change. No evidence for acute infarction. CEREBELLUM: No masses. No hemorrhage. No alteration of density. No evidence for acute infarction. EXTRAAXIAL SPACES: Mild age-related involutional change. No fluid collections. No masses. ORBITS AND GLOBE: No intra- or extraconal masses. Normal contour of globe without masses. CALVARIUM: No fracture. PARANASAL SINUSES: No fluid or mucosal thickening. SOFT TISSUES: No mass or hematoma. OTHER: Gas seen in the region of the cavernous sinus is most likely iatrogenic. IMPRESSION: MILD CHRONIC CHANGES OF ATROPHY AND MICROVASCULAR ISCHEMIA. NO ACUTE PROCESS. EVIDENCE OF ACUTE STROKE: NO. TECHNICAL DOCUMENTATION: JOB ID: [id number] Quality ID # [id number]: Final reports with documentation of one or more dose reduction techniques (e.g., Au tomated exposure control, adjustment of the mA and/or kV according to patient size, use of iterative reconstruction technique) 2010 [employer]- All Rights Reserved Reading location - IP/workstation name: [email or web address]
[2019-01-08] MEDS ORDERED: NORMAL SALINE 1000 ML 1,000 ML IV PRN (17:36)
[2019-01-08] MEDS ORDERED: ACETAMINOPHEN 325 MG TABLET PO PRN (17:36)
--- NOTE | 2019-01-08 17:52 | PDOC H&P ---
History of Present Illness Admission Date/PCP: 01/08/19 17:16 WILIAN REID MD Patient complains of: Altered mental status History of Present Illness: SAHRA GOMEZ is a 78 year old female This is a 78-year-old female with a history ofgastro-intestinal tumor post resection was couple of months back and history of intestinal cancers currently getting the chemo pills from Dr. Randhawa with the history of the hyponatremia history of dementia and history of the hypertension's brought to the emergency departments by the daughter with increased more confusion since last couple of days and daughter thinks may be a possible underlying hyponatremia According to the daughter patient is always have a sodium problem and always have a confusion on and off her entire life and Dr. Reid put the patient on Aricept for the dementia Patient seen by the psychiatrist suggest the Depakote and BuSpar the last admissions According to the daughter patient's getting more confused since last 1 week she went to the Dr. Randhawa's office had a blood work done and patient hemoglobin is less than 10 and patient received a Procrit She did have underlying some chronic kidney disease patients in the emergency department creatinine was 1.83 and patient's was creatinine normal discharge Patient's urine is positive full leuk esterase and patient received IV Rocephin in the ER Patient's sodium is 129 According to the daughter patient is not eating well Denied any chest pain to than any shortness of the breath no abdominal pain no nausea no vomiting Patient seems to be more confused Patient CT of the head is also negative Very extensive discussions with the daughter in the emergency departments admit the patient's in a telemetry bed Patient's daughters already make an appointment to see the another oncologist by Dr. Randhawa is leaving Not sure about the chemo pills according to the daughters which makes the patient is confused Discussed about the CODE STATUS patient was DNR before but not sure at this point she will discuss with her sisters Past Medical History Cardiac Medical History: Reports: Hypertension Pulmonary Medical History: Reports: Chronic Obstructive Pulmonary Disease (COPD) Neurological Medical History: Denies: Seizures Renal/ Medical History: Reports: Chronic Kidney Disease Malignancy History Note: GI cancer Musculoskeltal Medical History: Reports: Arthritis Psychiatric Medical History: Reports: Depression Hematology: Reports: Anemia Past Surgical History Past Surgical History: Reports: Cholecystectomy, Hysterectomy, Other - Gastrointestinal tumor resections Social History Information Source: Relative Smoking Status: Current Some Day Smoker Frequency of Alcohol Use: None Hx Recreational Drug Use: No Drugs: None Hx Prescription Drug Abuse: No Family History Family History: Reviewed & Not Pertinent Parental Family History Reviewed: Yes Children Family History Reviewed: Yes Sibling(s) Family History Reviewed.: Yes Medication/Allergy Home Medications: Donepezil HCl [Aricept 5 mg Tablet] 5 mg PO QHS 10/04/18 Olmesartan/Hydrochlorothiazide [Olmesartan-Hctz 40-25 mg Tab] 1 each PO DAILY 10/04/18 Pramipexole Di-HCl [Mirapex] 0.125 mg PO QHS 10/04/18 Imatinib Mesylate [Gleevec] 100 mg PO DAILY #300 tablet 10/21/18 Metoprolol Tartrate [Lopressor 25 mg Tablet] 25 mg PO Q12 tablet 10/21/18 Allergies/Adverse Reactions: Sulfa (Sulfonamide Antibiotics) Allergy (Verified 10/04/18 15:20) Review of Systems ROS unobtainable: Due to mental status All systems: reviewed and no additional remarkable complaints except as stated Physical Exam Vital Signs: Temp Pulse Resp BP Pulse Ox 98.6 F 89 18 158/73 H 99 01/08/19 12:44 01/08/19 12:44 01/08/19 12:44 01/08/19 12:44 01/08/19 12:44 Intake & Output 01/07/19 01/08/19 01/09/19 06:59 06:59 06:59 Weight 50.6 kg Physical Exam: Pleasantly confused General appearance: PRESENT: no acute distress, well-developed, well-nourished Head exam: PRESENT: atraumatic, normocephalic Eye exam: PRESENT: conjunctiva pink, EOMI, PERRLA. ABSENT: scleral icterus Ear exam: PRESENT: normal external ear exam Mouth exam: PRESENT: moist, tongue midline Neck exam: PRESENT: full ROM. ABSENT: carotid bruit, JVD, lymphadenopathy, th yromegaly Respiratory exam: PRESENT: clear to auscultation keturah Cardiovascular exam: PRESENT: RRR. ABSENT: diastolic murmur, rubs, systolic murmur Pulses: PRESENT: normal dorsalis pedis pul, +2 pedal pulses bilateral Vascular exam: PRESENT: normal capillary refill GI/Abdominal exam: PRESENT: normal bowel sounds, soft. ABSENT: distended, guarding, mass, organolmegaly, rebound, tenderness Rectal exam: PRESENT: deferred Extremities exam: ABSENT: pedal edema Neurological exam: PRESENT: alert, awake, oriented to person, oriented to place, oriented to time, oriented to situation, CN II-XII grossly intact. ABSENT: motor sensory deficit Psychiatric exam: PRESENT: appropriate affect, normal mood. ABSENT: homicidal ideation, suicidal ideation Skin exam: PRESENT: dry, intact, warm. ABSENT: cyanosis, rash Results Laboratory Results: 01/08/19 13:30 01/08/19 13:30 01/08/19 01/08/19 01/08/19 13:30 13:30 15:54 WBC 5.8 RBC 4.94 Hgb 10.4 L Hct 33.1 L MCV 67 L MCH 21.1 L MCHC 31.5 L RDW 18.6 H Plt Count 141 L Seg Neutrophils % Not Reportable Lymphocytes % Not Reportable Monocytes % Not Reportable Eosinophils % Not Reportable Basophils % Not Reportable Absolute Neutrophils Not Reportable Absolute Lymphocytes Not Reportable Absolute Monocytes Not Reportable Absolute Eosinophils Not Reportable Absolute Basophils Not Reportable Sodium 129.2 L Potassium 3.9 Chloride 91 L Carbon Dioxide 28 Anion Gap 10 BUN 30 H Creatinine 1.84 H Est GFR ( Amer) 32 L Est GFR (Non-Af Amer) 27 L Glucose 113 H Calcium 10.1 Magnesium 2.0 Total Bilirubin 1.3 AST 54 H Alkaline Phosphatase 75 Ammonia Total Protein 7.2 Albumin 4.6 Urine Color YELLOW Urine Appearance SLIGHTLY-CLOUDY Urine pH 5.0 Ur Specific [place] 1.013 Urine Protein NEGATIVE Urine Glucose (UA) NEGATIVE Urine Ketones NEGATIVE Urine Blood SMALL H Urine Nitrite NEGATIVE Ur Leukocyte Esterase SMALL H Urine WBC (Auto) 19 Urine RBC (Auto) 1 01/08/19 16:11 WBC RBC Hgb Hct MCV MCH MCHC RDW Plt Count Seg Neutrophils % Lymphocytes % Monocytes % Eosinophils % Basophils % Absolute Neutrophils Absolute Lymphocytes Absolute Monocytes Absolute Eosinophils Absolute Basophils Sodium Potassium Chloride Carbon Dioxide Anion Gap BUN Creatinine Est GFR ( Amer) Est GFR (Non-Af Amer) Glucose Calcium Magnesium Total Bilirubin AST Alkaline Phosphatase Ammonia < 8.7 L Total Protein Albumin Urine Color Urine Appearance Urine pH Ur Specific [place] Urine Protein Urine Glucose (UA) Urine Ketones Urine Blood Urine Nitrite Ur Leukocyte Esterase Urine WBC (Auto) Urine RBC (Auto) Impressions: Head CT 01/08/19 00:00 IMPRESSION: MILD CHRONIC CHANGES OF ATROPHY AND MICROVASCULAR ISCHEMIA. NO ACUTE PROCESS. EVIDENCE OF ACUTE STROKE: NO. Assessment & Plan - Diagnosis (1) Acute kidney injury Is this a current diagnosis for this admission?: Yes Plan: Mostly from the dehydration we will give her some IV fluids (2) GIST (gastrointestinal stroma tumor), malignant, colon Is this a current diagnosis for this admission?: Yes Plan: This post surgery (3) Hyponatremia Is this a current diagnosis for this admission?: Yes Plan: We will give her some IV fluid in the setting of the dehydration's hypovolemic will further evaluate (4) Anemia Qualifiers: Anemia type: unspecified type Qualified Code(s): D64.9 - Anemia, unspecified Is this a current diagnosis for this admission?: Yes (5) COPD (chronic obstructive pulmonary disease) Qualifiers: COPD type: unspecified COPD Qualified Code(s): J44.9 - Chronic obstructive pulmonary disease, unspecified Is this a current diagnosis for this admission?: Yes Plan: Use the nebulizer as needed (6) Dehydration Is this a current diagnosis for this admission?: Yes Plan: IV fluids (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 Is this a current diagnosis for this admission?: Yes (8) Urinary tract infection Qualifiers: Urinary tract infection type: site unspecified Hematuria presence: without hematuria Qualified Code(s): N39.0 - Urinary tract infection, site not specif ied Is this a current diagnosis for this admission?: Yes Plan: Send the urine for the culture and start the Rocephin - Time Time Spent: 30 to 50 Minutes Medications reviewed and adjusted accordingly: Yes Anticipated discharge: Home, Other Within: Other - Inpatient Certification Based on my medical assessment, after consideration of the patient's comorbidities, presenting symptoms, or acuity I expect that the services needed warrant INPATIENT care.: Yes I certify that my determination is in accordance with my understanding of Medicare's requirements for reasonable and necessary INPATIENT services [42 CFR 412.3e].: Yes Medical Necessity: Significant Comorbidiites Make Outpatient Treatment Too Risky, Need For IV Fluids, Need for IV Antibiotics Post Hospital Care: D/C [employer] Specialist Documentation - Plan Summary Plan Summary: Discussed with the daughter and the bedside's Admit the patient in a telemetry Started on IV fluid and IV antibiotic Fall precautions
[2019-01-08] MEDS: DOCUSATE SODIUM 100 MG CAPSULE PO SCH (19:26)
[2019-01-08] MEDS ORDERED: FAMOTIDINE 20 MG TABLET PO SCH (22:00)
[2019-01-09] MEDS: FAMOTIDINE 20 MG TABLET PO SCH (05:13)
[2019-01-09] MEDS ORDERED: ACETAMINOPHEN 325 MG TABLET PO PRN (07:29)
--- NOTE | 2019-01-09 07:34 | EKG REPORT ---
SEVERITY:- ABNORMAL ECG - REGULAR RHYTHM, JUNCTIONAL RHYTHM BASELINE ARTEFACTS PREVENT ACCURATE RHYTHM ANALYSIS : Confirmed by: Jacob Melendez MD 09-Jan-2019 07:34:09
[2019-01-09 08:13] LABS: HEMATOCRIT 27.4 % (36.0-47.0); HEMOGLOBIN 8.8 g/dL (12.0-15.5); MEAN CORPUSCULAR HEMOGLOBIN 21.4 pg (27.0-33.4); MEAN CORPUSCULAR VOLUME 67 fl (80-97); PLATELET COUNT 118 10^3/uL (150-450); RED CELL DISTRIBUTION WIDTH 18.3 % (11.5-14.0); WHITE BLOOD COUNT 5.3 10^3/uL (4.0-10.5)
[2019-01-09 08:22] LABS: ANION GAP 8 (5-19); BLOOD UREA NITROGEN 22 mg/dL (7-20); CALCIUM 8.9 mg/dL (8.4-10.2); CARBON DIOXIDE 24 mmol/L (22-30); CHLORIDE 99 mmol/L (98-107); GLUCOSE 80 mg/dL (75-110); POTASSIUM 3.9 mmol/L (3.6-5.0)
[2019-01-09 08:37] LABS: ABSOLUTE LYMPHOCYTES# (MANUAL) 0.9 10^3/uL (0.5-4.7); ABSOLUTE MONOCYTES # (MANUAL) 0.4 10^3/uL (0.1-1.4); BASOPHILS % (MANUAL) 0 % (0-2); EOSINOPHILS % (MANUAL) 2 % (0-6); LYMPHOCYTES % (MANUAL) 17 % (13-45); MONOCYTES % (MANUAL) 8 % (3-13); SEGMENTED NEUTROPHILS % (MAN) 73 % (42-78); TOTAL CELLS COUNTED 100
[2019-01-09 08:40] LABS: ANISOCYTOSIS 2+; PLATELET COMMENT DECREASED; PLATELET LARGE PRESENT
[2019-01-09 08:41] LABS: TARGET CELLS 1+
[2019-01-09] MEDS ORDERED: NORMAL SALINE 1000 ML 1,000 ML IV PRN (08:41)
[2019-01-09 08:55] LABS: ABSOLUTE RETICS # 0.037 10^6/uL (0.028-0.122); RETICULOCYTE COUNT (AUTO) 0.89 % (0.66-2.85)
[2019-01-09] MEDS: ENOXAPARIN SODIUM INJ 30 MG/0.3 ML DISP.SYRIN SUBCUT SCH (09:03)
[2019-01-09] MEDS: DOCUSATE SODIUM 100 MG CAPSULE PO SCH ×2 (09:10→17:52)
[2019-01-09 09:14] LABS: IRON(TIBC) 64.6 ug/dL (37-170)
--- NOTE | 2019-01-09 09:17 | PDOC CONSULTATION ---
Consultation Consult Date: 01/09/19 Attending physician:: PATRICA SAINI Provider Consulted: ANDREA SHIPLEY Consult reason:: Known history of gastrointestinal stromal tumor here with confusion and anemia History of Present Illness Admission Date/PCP: 01/08/19 17:16 WILIAN REID MD Patient complains of: Confusion, weakness History of Present Illness: SAHRA GOMEZ is a 78 year old female with known history of gastrointestinal stromal tumor, most recently with progression with multiple mesenteric masses noted about 3 months ago, ultimately had excision of 1 of these masses and again noted with gastrointestinal stromal tumor. She has this diagnosis for almost about 4 years now, and has been on and off Gleevec during that time. Unfortunately she has not been compliant with medications at home so there were large periods of time that she was off medication. Her daughters are involved with her care but the patient lives at home they come 4 to 5 days a week and in the last few months have been giving her the medication. She does have bouts several times over the last few years of hyponatremia, and she also has chronic anemia. She does have known thalassemia trait, so that is part of the anemia but she has been on Procrit injections as an outpatient. She is doing a little bit better today. But is keen on getting back home to her own home when she is medically ready. Past Medical History Cardiac Medical History: Reports: Hypertension Pulmonary Medical History: Reports: Chronic Obstructive Pulmonary Disease (COPD) Neurological Medical History: Denies: Seizures Renal/ Medical History: Reports: Chronic Kidney Disease Malignancy Medical History: Reports: Other - Gastrointestinal stromal tumor Musculoskeltal Medical History: Reports: Arthritis Psychiatric Medical History: Reports: Depression Hematology: Reports: Anemia Past Surgical History Past Surgical History: Reports: Cholecystectomy, Hysterectomy, Other - Gastrointestinal tumor resections Social History Information Source: Patient Smoking Status: Current Every Day Smoker Cigarettes Packs Per Day: 0.5 Number of Years Smokin Last Time Smoked: 01/07/2019 Frequency of Alcohol Use: None Hx Recreational Drug Use: No Drugs: None Hx Prescription Drug Abuse: No - Advance Directive Resuscitation Status: Full Code Family History Family History: Reviewed & Not Pertinent Parental Family History Reviewed: Yes Children Family History Reviewed: Yes Sibling(s) Family History Reviewed.: Yes Medication/Allergy Allergies/Adverse Reactions: Sulfa (Sulfonamide Antibiotics) Allergy (Verified 05/02/19 15:20) Review of Systems Constitutional: ABSENT: chills, fever(s), headache(s), weight gain, weight loss Eyes: ABSENT: visual disturbances Ears: ABSENT: hearing changes Cardiovascular: ABSENT: chest pain, dyspnea on exertion, edema, orthropnea, palpitations Respiratory: ABSENT: cough, hemoptysis Gastrointestinal: ABSENT: abdominal pain, constipation, diarrhea, hematemesis, hematochezia, nausea, vomiting Genitourinary: ABSENT: dysuria, hematuria Musculoskeletal: ABSENT: joint swelling Integumentary: ABSENT: rash, wounds Neurological: ABSENT: abnormal gait, abnormal speech, confusion, dizziness, focal weakness, syncope Psychiatric: ABSENT: anxiety, depression, homidical ideation, suicidal ideation Endocrine: ABSENT: cold intolerance, heat intolerance, polydipsia, polyuria Hematologic/Lymphatic: ABSENT: easy bleeding, easy bruising Physical Exam Vital Signs: Temp Pulse Resp BP Pulse Ox 98.5 F 65 16 120/67 99 01/08/19 23:37 01/09/19 07:00 01/08/19 23:37 01/08/19 23:37 01/08/19 23:37 Intake & Output 01/08/19 01/09/19 01/10/19 06:59 06:59 06:59 Intake Total 1240 Output Total 900 Balance 340 Weight 51.3 kg General appearance: PRESENT: no acute distress, well-developed, well-nourished Head exam: PRESENT: atraumatic, normocephalic Eye exam: PRESENT: conjunctiva pink, EOMI, PERRLA. ABSENT: scleral icterus Ear exam: PRESENT: normal external ear exam Mouth exam: PRESENT: moist, tongue midline Neck exam: ABSENT: carotid bruit, JVD, lymphadenopathy, thyromegaly Respiratory exam: PRESENT: clear to auscultation keturah. ABSENT: rales, rhonchi, wheezes Cardiovascular exam: PRESENT: RRR. ABSENT: diastolic murmur, rubs, systolic murmur Pulses: PRESENT: normal dorsalis pedis pul Vascular exam: PRESENT: normal capillary refill GI/Abdominal exam: PRESENT: normal bowel sounds, soft. ABSENT: distended, guarding, mass, organolmegaly, rebound, tenderness Rectal exam: PRESENT: deferred Extremities exam: PRESENT: full ROM. ABSENT: calf tenderness, clubbing, pedal edema Neurological exam: PRESENT: alert, awake, oriented to person, oriented to place, oriented to time, oriented to situation, CN II-XII grossly intact. ABSENT: motor sensory deficit Psychiatric exam: PRESENT: appropriate affect, normal mood. ABSENT: homicidal ideation, suicidal ideation Skin exam: PRESENT: dry, intact, warm. ABSENT: cyanosis, rash Results Laboratory Results: 01/09/19 07:02 01/09/19 07:02 01/08/19 01/08/19 01/08/19 13:30 13:30 15:54 WBC 5.8 RBC 4.94 Hgb 10.4 L Hct 33.1 L MCV 67 L MCH 21.1 L MCHC 31.5 L RDW 18.6 H Plt Count 141 L Seg Neutrophils % Not Reportable Lymphocytes % Not Reportable Monocytes % Not Reportable Eosinophils % Not Reportable Basophils % Not Reportable Absolute Neutrophils Not Reportable Absolute Lymphocytes Not Reportable Absolute Monocytes Not Reportable Absolute Eosinophils Not Reportable Absolute Basophils Not Reportable Retic Count (auto) Absolute Retic Sodium 129.2 L Potassium 3.9 Chloride 91 L Carbon Dioxide 28 Anion Gap 10 BUN 30 H Creatinine 1.84 H Est GFR ( Amer) 32 L Est GFR (Non-Af Amer) 27 L Glucose 113 H Serum Osmolality Calcium 10.1 Magnesium 2.0 Total Bilirubin 1.3 AST 54 H Alkaline Phosphatase 75 Ammonia Total Protein 7.2 Albumin 4.6 Urine Color YELLOW Urine Appearance SLIGHTLY-CLOUDY Urine pH 5.0 Ur Specific [place] 1.013 Urine Protein NEGATIVE Urine Glucose (UA) NEGATIVE Urine Ketones NEGATIVE Urine Blood SMALL H Urine Nitrite NEGATIVE Ur Leukocyte Esterase SMALL H Urine WBC (Auto) 19 Urine RBC (Auto) 1 Urine Osmolality 01/08/19 01/08/19 01/08/19 16:11 18:35 21:48 WBC RBC Hgb Hct MCV MCH MCHC RDW Plt Count Seg Neutrophils % Lymphocytes % Monocytes % Eosinophils % Basophils % Absolute Neutrophils Absolute Lymphocytes Absolute Monocytes Absolute Eosinophils Absolute Basophils Retic Count (auto) Absolute Retic Sodium Potassium Chloride Carbon Dioxide Anion Gap BUN Creatinine Est GFR ( Amer) Est GFR (Non-Af Amer) Glucose Serum Osmolality 276 Calcium Magnesium Total Bilirubin AST Alkaline Phosphatase Ammonia < 8.7 L Total Protein Albumin Urine Color Urine Appearance Urine pH Ur Specific [place] Urine Protein Urine Glucose (UA) Urine Ketones Urine Blood Urine Nitrite Ur Leukocyte Esterase Urine WBC (Auto) Urine RBC (Auto) Urine Osmolality 270 L 01/09/19 01/09/19 01/09/19 07:02 07:02 07:02 WBC 5.3 RBC 4.10 Hgb 8.8 L Hct 27.4 L MCV 67 L MCH 21.4 L MCHC 32.0 RDW 18.3 H Plt Count 118 L Seg Neutrophils % Not Reportable Lymphocytes % Not Reportable Monocytes % Not Reportable Eosinophils % Not Reportable Basophils % Not Reportable Absolute Neutrophils Not Reportable Absolute Lymphocytes Not Reportable Absolute Monocytes Not Reportable Absolute Eosinophils Not Reportable Absolute Basophils Not Reportable Retic Count (auto) 0.89 Absolute Retic 0.037 Sodium 130.9 L Potassium 3.9 Chloride 99 Carbon Dioxide 24 Anion Gap 8 BUN 22 H Creatinine 1.19 Est GFR ( Amer) 53 L Est GFR (Non-Af Amer) 44 L Glucose 80 Serum Osmolality Calcium 8.9 Magnesium 1.7 Total Bilirubin AST Alkaline Phosphatase Ammonia Total Protein Albumin Urine Color Urine Appearance Urine pH Ur Specific [place] Urine Protein Urine Glucose (UA) Urine Ketones Urine Blood Urine Nitrite Ur Leukocyte Esterase Urine WBC (Auto) Urine RBC (Auto) Urine Osmolality Impressions: Head CT 01/08/19 00:00 IMPRESSION: MILD CHRONIC CHANGES OF ATROPHY AND MICROVASCULAR ISCHEMIA. NO ACUTE PROCESS. EVIDENCE OF ACUTE STROKE: NO. Status: Image reviewed by me Assessment & Plan - Diagnosis (1) GIST (gastrointestinal stroma tumor), malignant, colon Is this a current diagnosis for this admission?: Yes Plan: We will get more records from her previous oncologist office, we will take over her oncology care. I had a long discussion with her daughter who lives in [place]. Updated her with her current medical situation. We will see her while inpatient and see her as an outpatient as well. (2) Anemia Qualifiers: Anemia type: due to chronic kidney disease Chronic kidney disease stage: stage 3 (moderate) Qualified Code(s): N18.3 - Chronic kidney disease, stage 3 (moderate); D63.1 - Anemia in chronic kidney disease Is this a current diagnosis for this admission?: Yes Plan: Probably some element of anemia chronic kidney disease or anemia of inflammation , but also an element of thalassemia. I have sent iron studies to reinvestigate if there is any iron deficiency. - Time Time Spent: Greater than 70 Minutes - Inpatient Certification Based on my medical assessment, after consideration of the patient's comorbidities, presenting symptoms, or acuity I expect that the services needed warrant INPATIENT care.: Yes I certify that my determination is in accordance with my understanding of Medicare's requirements for reasonable and necessary INPATIENT services [42 CFR 412.3e].: Yes Medical Necessity: Risk of Complication if Not Cared For in Hospital
[2019-01-09] MEDS ORDERED: CEFTRIAXONE 1 GM/D5W RTU 1 GM/50 ML RTUPB IV SCH (10:00)
[2019-01-09 10:26] LABS: FOLATE 8.39 ng/mL (>2.76)
--- NOTE | 2019-01-09 11:28 | PDOC PROGRESS REPORT ---
Subjective Progress Note for:: 01/09/19 Subjective:: Patient is currently doing better Denied any chest pain denied any shortness of the breath Sodium is also improving and kidney function is also improving Patient is still confused on and offHis most likely baseline underlying dementia Reason For Visit: AMS/ACUTE RENAL FAILURE/CONFUSION Physical Exam Vital Signs: Temp Pulse Resp BP Pulse Ox 98.5 F 65 16 120/67 99 01/08/19 23:37 01/09/19 07:00 01/08/19 23:37 01/08/19 23:37 01/08/19 23:37 Intake & Output 01/08/19 01/09/19 01/10/19 06:59 06:59 06:59 Intake Total 1240 1000 Output Total 900 Balance 340 1000 Weight 51.3 kg General appearance: PRESENT: no acute distress, well-developed, well-nourished Head exam: PRESENT: atraumatic, normocephalic Eye exam: PRESENT: conjunctiva pink, EOMI, PERRLA. ABSENT: scleral icterus Ear exam: PRESENT: normal external ear exam Mouth exam: PRESENT: moist, tongue midline Neck exam: PRESENT: full ROM. ABSENT: carotid bruit, JVD, lymphadenopathy, thyromegaly Respiratory exam: PRESENT: clear to auscultation keturah Cardiovascular exam: PRESENT: RRR. ABSENT: diastolic murmur, rubs, systolic murmur Pulses: PRESENT: normal dorsalis pedis pul, +2 pedal pulses bilateral Vascular exam: PRESENT: normal capillary refill GI/Abdominal exam: PRESENT: normal bowel sounds, soft. ABSENT: distended, guarding, mass, organolmegaly, rebound, tenderness Rectal exam: PRESENT: deferred Neurological exam: PRESENT: alert, awake, oriented to person, CN II-XII grossly intact. ABSENT: motor sensory deficit Psychiatric exam: PRESENT: appropriate affect, normal mood. ABSENT: homicidal ideation, suicidal ideation Skin exam: PRESENT: dry, intact, warm. ABSENT: cyanosis, rash Results Laboratory Results: 01/09/19 07:02 01/09/19 07:02 01/08/19 01/08/19 01/08/19 13:30 13:30 15:54 WBC 5.8 RBC 4.94 Hgb 10.4 L Hct 33.1 L MCV 67 L MCH 21.1 L MCHC 31.5 L RDW 18.6 H Plt Count 141 L Seg Neutrophils % Not Reportable Lymphocytes % Not Reportable Monocytes % Not Reportable Eosinophils % Not Reportable Basophils % Not Reportable Absolute Neutrophils Not Reportable Absolute Lymphocytes Not Reportable Absolute Monocytes Not Reportable Absolute Eosinophils Not Reportable Absolute Basophils Not Reportable Retic Count (auto) Absolute Retic Sodium 129.2 L Potassium 3.9 Chloride 91 L Carbon Dioxide 28 Anion Gap 10 BUN 30 H Creatinine 1.84 H Est GFR ( Amer) 32 L Est GFR (Non-Af Amer) 27 L Glucose 113 H Serum Osmolality Calcium 10.1 Magnesium 2.0 Iron TIBC % Saturation Ferritin Total Bilirubin 1.3 AST 54 H Alkaline Phosphatase 75 Ammonia Total Protein 7.2 Albumin 4.6 Vitamin B12 Folate Urine Color YELLOW Urine Appearance SLIGHTLY-CLOUDY Urine pH 5.0 Ur Specific [place] 1.013 Urine Protein NEGATIVE Urine Glucose (UA) NEGATIVE Urine Ketones NEGATIVE Urine Blood SMALL H Urine Nitrite NEGATIVE Ur Leukocyte Esterase SMALL H Urine WBC (Auto) 19 Urine RBC (Auto) 1 Urine Osmolality Stool Occult Blood 01/08/19 01/08/19 01/08/19 16:11 18:35 21:48 WBC RBC Hgb Hct MCV MCH MCHC RDW Plt Count Seg Neutrophils % Lymphocytes % Monocytes % Eosinophils % Basophils % Absolute Neutrophils Absolute Lymphocytes Absolute Monocytes Absolute Eosinophils Absolute Basophils Retic Count (auto) Absolute Retic Sodium Potassium Chloride Carbon Dioxide Anion Gap BUN Creatinine Est GFR ( Amer) Est GFR (Non-Af Amer) Glucose Serum Osmolality 276 Calcium Magnesium Iron TIBC % Saturation Ferritin Total Bilirubin AST Alkaline Phosphatase Ammonia < 8.7 L Total Protein Albumin Vitamin B12 Folate Urine Color Urine Appearance Urine pH Ur Specific [place] Urine Protein Urine Glucose (UA) Urine Ketones Urine Blood Urine Nitrite Ur Leukocyte Esterase Urine WBC (Auto) Urine RBC (Auto) Urine Osmolality 270 L Stool Occult Blood 01/09/19 01/09/19 01/09/19 07:02 07:02 07:02 WBC 5.3 RBC 4.10 Hgb 8.8 L Hct 27.4 L MCV 67 L MCH 21.4 L MCHC 32.0 RDW 18.3 H Plt Count 118 L Seg Neutrophils % Not Reportable Lymphocytes % Not Reportable Monocytes % Not Reportable Eosinophils % Not Reportable Basophils % Not Reportable Absolute Neutrophils Not Reportable Absolute Lymphocytes Not Reportable Absolute Monocytes Not Reportable Absolute Eosinophils Not Reportable Absolute Basophils Not Reportable Retic Count (auto) 0.89 Absolute Retic 0.037 Sodium 130.9 L Potassium 3.9 Chloride 99 Carbon Dioxide 24 Anion Gap 8 BUN 22 H Creatinine 1.19 Est GFR ( Amer) 53 L Est GFR (Non-Af Amer) 44 L Glucose 80 Serum Osmolality Calcium 8.9 Magnesium 1.7 Iron TIBC % Saturation Ferritin Total Bilirubin AST Alkaline Phosphatase Ammonia Total Protein Albumin Vitamin B12 Folate Urine Color Urine Appearance Urine pH Ur Specific [place] Urine Protein Urine Glucose (UA) Urine Ketones Urine Blood Urine Nitrite Ur Leukocyte Esterase Urine WBC (Auto) Urine RBC (Auto) Urine Osmolality Stool Occult Blood 01/09/19 01/09/19 07:02 10:31 WBC RBC Hgb Hct MCV MCH MCHC RDW Plt Count Seg Neutrophils % Lymphocytes % Monocytes % Eosinophils % Basophils % Absolute Neutrophils Absolute Lymphocytes Absolute Monocytes Absolute Eosinophils Absolute Basophils Retic Count (auto) Absolute Retic Sodium Potassium Chloride Carbon Dioxide Anion Gap BUN Creatinine Est GFR ( Amer) Est GFR (Non-Af Amer) Glucose Serum Osmolality Calcium Magnesium Iron 64.6 TIBC 213 L % Saturation 30 Ferritin 349.00 H Total Bilirubin AST Alkaline Phosphatase Ammonia Total Protein Albumin Vitamin B12 912.0 Folate 8.39 Urine Color Urine Appearance Urine pH Ur Specific [place] Urine Protein Urine Glucose (UA) Urine Ketones Urine Blood Urine Nitrite Ur Leukocyte Esterase Urine WBC (Auto) Urine RBC (Auto) Urine Osmolality Stool Occult Blood NEGATIVE Impressions: Head CT 01/08/19 00:00 IMPRESSION: MILD CHRONIC CHANGES OF ATROPHY AND MICROVASCULAR ISCHEMIA. NO ACUTE PROCESS. EVIDENCE OF ACUTE STROKE: NO. Assessment & Plan - Diagnosis (1) Acute kidney injury Is this a current diagnosis for this admission?: Yes Plan: Currently all improving (2) GIST (gastrointestinal stroma tumor), malignant, colon Is this a current diagnosis for this admission?: Yes Plan: Follow with oncology (3) Hyponatremia Is this a current diagnosis for this admission?: Yes Plan: Currently all improving (4) Anemia Qualifiers: Anemia type: due to chronic kidney disease Chronic kidney disease stage: stage 3 (moderate) Qualified Code(s): N18.3 - Chronic kidney disease, stage 3 (moderate); D63.1 - Anemia in chronic kidney disease Is this a current diagnosis for this admission?: Yes Plan: We will order the iron study (5) COPD (chronic obstructive pulmonary disease) Qualifiers: COPD type: unspecified COPD Qualified Code(s): J44.9 - Chronic obstructive pulmonary disease, unspecified Is this a current diagnosis for this admission?: Yes Plan: Use the nebulizer as needed (6) Dehydration Is this a current diagnosis for this admission?: Yes Plan: IV fluids (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
[2019-01-09] MEDS ORDERED: CEFTRIAXONE SODIUM 1,000 MG in DEXTROSE 5%-WATER 50 ML IV SCH (16:00)
[2019-01-09] MEDS ORDERED: HALOPERIDOL LACTATE INJ 5 MG/1 ML VIAL IM ONE (23:15)
[2019-01-09] MEDS ORDERED: HALOPERIDOL LACTATE INJ 5 MG/1 ML VIAL ONE (23:25)
[2019-01-10] MEDS: FAMOTIDINE 20 MG TABLET PO SCH (05:05)
[2019-01-10 06:07] LABS: HEMOGLOBIN 9.3 g/dL (12.0-15.5); MEAN CORPUSCULAR HEMOGLOBIN 21.5 pg (27.0-33.4); MEAN CORPUSCULAR HGB CONC 32.2 g/dL (32.0-36.0); MEAN CORPUSCULAR VOLUME 67 fl (80-97); PLATELET COUNT 133 10^3/uL (150-450); RED BLOOD COUNT 4.35 10^6/uL (3.72-5.28); RED CELL DISTRIBUTION WIDTH 18.4 % (11.5-14.0); WHITE BLOOD COUNT 6.1 10^3/uL (4.0-10.5)
[2019-01-10 06:12] LABS: ANION GAP 8 (5-19); BLOOD UREA NITROGEN 19 mg/dL (7-20); CALCIUM 9.6 mg/dL (8.4-10.2); CARBON DIOXIDE 22 mmol/L (22-30); CHLORIDE 99 mmol/L (98-107); GLUCOSE 94 mg/dL (75-110); POTASSIUM 4.2 mmol/L (3.6-5.0)
[2019-01-10 06:56] LABS: ABSOLUTE LYMPHOCYTES# (MANUAL) 1.7 10^3/uL (0.5-4.7); ABSOLUTE MONOCYTES # (MANUAL) 0.4 10^3/uL (0.1-1.4); ANISOCYTOSIS 1+; BAND NEUTROPHILS % (MANUAL) 2 % (3-5); BASOPHILS % (MANUAL) 0 % (0-2); EOSINOPHILS % (MANUAL) 1 % (0-6); HYPOCHROMASIA 1+; LYMPHOCYTES % (MANUAL) 28 % (13-45); MONOCYTES % (MANUAL) 6 % (3-13); SEGMENTED NEUTROPHILS % (MAN) 63 % (42-78); TARGET CELLS 2+; TOTAL CELLS COUNTED 100
[2019-01-10 07:01] LABS: PLATELET COMMENT DECREASED
--- NOTE | 2019-01-10 07:30 | PDOC PROGRESS REPORT ---
Subjective Progress Note for:: 01/10/19 Subjective:: Patient without complaints, except is cold this morning. Denies pain. Nurses report no new concerns. Reason For Visit: AMS/ACUTE RENAL FAILURE/CONFUSION Physical Exam Vital Signs: Temp Pulse Resp BP Pulse Ox 98.2 F 58 L 16 160/66 H 96 01/09/19 23:39 01/10/19 02:00 01/09/19 23:39 01/09/19 23:39 01/09/19 23:39 Intake & Output 01/09/19 01/10/19 01/11/19 06:59 06:59 06:59 Intake Total 1240 1980 Output Total 900 1300 Balance 340 680 Weight 51.3 kg 51.3 kg General appearance: PRESENT: no acute distress, thin, well-developed Exam: 78 year old female. Head exam: PRESENT: atraumatic, normocephalic Respiratory exam: PRESENT: clear to auscultation keturah, unlabored Extremities exam: ABSENT: pedal edema Neurological exam: PRESENT: alert, awake Psychiatric exam: PRESENT: appropriate affect Skin exam: PRESENT: normal color Results Laboratory Results: 01/10/19 05:29 01/10/19 05:29 01/09/19 01/09/19 01/09/19 07:02 07:02 07:02 WBC 5.3 RBC 4.10 Hgb 8.8 L Hct 27.4 L MCV 67 L MCH 21.4 L MCHC 32.0 RDW 18.3 H Plt Count 118 L Seg Neutrophils % Not Reportable Lymphocytes % Not Reportable Monocytes % Not Reportable Eosinophils % Not Reportable Basophils % Not Reportable Absolute Neutrophils Not Reportable Absolute Lymphocytes Not Reportable Absolute Monocytes Not Reportable Absolute Eosinophils Not Reportable Absolute Basophils Not Reportable Retic Count (auto) 0.89 Absolute Retic 0.037 Sodium 130.9 L Potassium 3.9 Chloride 99 Carbon Dioxide 24 Anion Gap 8 BUN 22 H Creatinine 1.19 Est GFR ( Amer) 53 L Est GFR (Non-Af Amer) 44 L Glucose 80 Calcium 8.9 Magnesium 1.7 Iron TIBC % Saturation Ferritin Vitamin B12 Folate Stool Occult Blood 01/09/19 01/09/19 01/10/19 07:02 10:31 05:29 WBC 6.1 RBC 4.35 Hgb 9.3 L Hct 29.0 L MCV 67 L MCH 21.5 L MCHC 32.2 RDW 18.4 H Plt Count 133 L Seg Neutrophils % Not Reportable Lymphocytes % Not Reportable Monocytes % Not Reportable Eosinophils % Not Reportable Basophils % Not Reportable Absolute Neutrophils Not Reportable Absolute Lymphocytes Not Reportable Absolute Monocytes Not Reportable Absolute Eosinophils Not Reportable Absolute Basophils Not Reportable Retic Count (auto) Absolute Retic Sodium Potassium Chloride Carbon Dioxide Anion Gap BUN Creatinine Est GFR ( Amer) Est GFR (Non-Af Amer) Glucose Calcium Magnesium Iron 64.6 TIBC 213 L % Saturation 30 Ferritin 349.00 H Vitamin B12 912.0 Folate 8.39 Stool Occult Blood NEGATIVE 01/10/19 05:29 WBC RBC Hgb Hct MCV MCH MCHC RDW Plt Count Seg Neutrophils % Lymphocytes % Monocytes % Eosinophils % Basophils % Absolute Neutrophils Absolute Lymphocytes Absolute Monocytes Absolute Eosinophils Absolute Basophils Retic Count (auto) Absolute Retic Sodium 128.6 L Potassium 4.2 Chloride 99 Carbon Dioxide 22 Anion Gap 8 BUN 19 Creatinine 0.96 Est GFR ( Amer) > 60 Est GFR (Non-Af Amer) 57 L Glucose 94 Calcium 9.6 Magnesium 1.5 L Iron TIBC % Saturation Ferritin Vitamin B12 Folate Stool Occult Blood Impressions: Head CT 01/08/19 00:00 IMPRESSION: MILD CHRONIC CHANGES OF ATROPHY AND MICROVASCULAR ISCHEMIA. NO ACUTE PROCESS. EVIDENCE OF ACUTE STROKE: NO. Assessment & Plan - Diagnosis (1) GIST (gastrointestinal stroma tumor), malignant, colon Is this a current diagnosis for this admission?: Yes Plan: She has been on Gleevec in the past, but is not currently on any medications for this according to her MAR. Await records from prior oncologist. Consider restarting Gleevec, or Tasigna, based on these records. Will continue to follow with you. (2) Anemia Qualifiers: Anemia type: due to chronic kidney disease Chronic kidney disease stage: stage 3 (moderate) Qualified Code(s): N18.3 - Chronic kidney disease, stage 3 (moderate); D63.1 - Anemia in chronic kidney disease Is this a current diagnosis for this admission?: Yes Plan: Currently stable. No indication for blood transfusion at this time. Iron, B12, Folate all normal. Cr improving. Will continue to follow.
[2019-01-10] MEDS: DOCUSATE SODIUM 100 MG CAPSULE PO SCH ×2 (09:13→17:22)
[2019-01-10] MEDS: ENOXAPARIN SODIUM INJ 30 MG/0.3 ML DISP.SYRIN SUBCUT SCH (09:13)
--- NOTE | 2019-01-10 12:42 | PDOC PROGRESS REPORT ---
Subjective Progress Note for:: 01/10/19 Subjective:: Patient to this morning was alert awake walking in the hallway denied any chest pain to than any shortness of the breath According to the nursing some patient was very agitated last night requiring Haldol I think patient has significant underlying dementia but family said that does not look like patient is already on Aricept per Dr. Christian Patient's sodium level is running 128 129 range patient was taking the Benicar hydrochlorothiazide. We will stop the hydrochlorothiazid On admissions and I think patients should be discharged without hydrochlorothiazide Reason For Visit: AMS/ACUTE RENAL FAILURE/CONFUSION Physical Exam Vital Signs: Temp Pulse Resp BP Pulse Ox 97.4 F 63 15 129/56 H 100 01/10/19 11:08 01/10/19 11:08 01/10/19 11:08 01/10/19 11:08 01/10/19 11:08 Intake & Output 01/09/19 01/10/19 01/11/19 06:59 06:59 06:59 Intake Total 1240 1980 1000 Output Total 900 1300 Balance 977 198 8732 Weight 51.3 kg 51.3 kg General appearance: PRESENT: no acute distress, well-developed, well-nourished Head exam: PRESENT: atraumatic, normocephalic Eye exam: PRESENT: conjunctiva pink, EOMI, PERRLA. ABSENT: scleral icterus Ear exam: PRESENT: normal external ear exam Mouth exam: PRESENT: moist, tongue midline Neck exam: PRESENT: full ROM. ABSENT: carotid bruit, JVD, lymphadenopathy, thyromegaly Respiratory exam: PRESENT: clear to auscultation keturah Cardiovascular exam: PRESENT: RRR. ABSENT: diastolic murmur, rubs, systolic murmur Pulses: PRESENT: normal dorsalis pedis pul, +2 pedal pulses bilateral Vascular exam: PRESENT: normal capillary refill GI/Abdominal exam: PRESENT: normal bowel sounds, soft. ABSENT: distended, guarding, mass, organolmegaly, rebound, tenderness Rectal exam: PRESENT: deferred Musculoskeletal exam: PRESENT: ambulatory Neurological exam: PRESENT: alert, awake, oriented to person, oriented to place, CN II-XII grossly intact. ABSENT: motor sensory deficit Psychiatric exam: PRESENT: appropriate affect, normal mood. ABSENT: homicidal ideation, suicidal ideation Skin exam: PRESENT: dry, intact, warm. ABSENT: cyanosis, rash Results Laboratory Results: 01/10/19 05:29 01/10/19 05:29 01/10/19 01/10/19 05:29 05:29 WBC 6.1 RBC 4.35 Hgb 9.3 L Hct 29.0 L MCV 67 L MCH 21.5 L MCHC 32.2 RDW 18.4 H Plt Count 133 L Seg Neutrophils % Not Reportable Lymphocytes % Not Reportable Monocytes % Not Reportable Eosinophils % Not Reportable Basophils % Not Reportable Absolute Neutrophils Not Reportable Absolute Lymphocytes Not Reportable Absolute Monocytes Not Reportable Absolute Eosinophils Not Reportable Absolute Basophils Not Reportable Sodium 128.6 L Potassium 4.2 Chloride 99 Carbon Dioxide 22 Anion Gap 8 BUN 19 Creatinine 0.96 Est GFR ( Amer) > 60 Est GFR (Non-Af Amer) 57 L Glucose 94 Calcium 9.6 Magnesium 1.5 L 01/08/19 21:48 Clean Catch Midstream Urine Culture - Final Mixed Urogenital Brittany Impressions: Head CT 01/08/19 00:00 IMPRESSION: MILD CHRONIC CHANGES OF ATROPHY AND MICROVASCULAR ISCHEMIA. NO ACUTE PROCESS. EVIDENCE OF ACUTE STROKE: NO. Assessment & Plan - Diagnosis (1) Acute kidney injury Is this a current diagnosis for this admission?: Yes Plan: Currently all improving (2) GIST (gastrointestinal stroma tumor), malignant, colon Is this a current diagnosis for this admission?: Yes Plan: Follow with oncology (3) Hyponatremia Is this a current diagnosis for this admission?: Yes Plan: Most likely underlying SIADH Fluid restrictions Already stopped the hydrochlorothiazide and discontinued on discharge As per family request we will consult the nephrology (4) Anemia Qualifiers: Anemia type: due to chronic kidney disease Chronic kidney disease stage: stage 3 (moderate) Qualified Code(s): N18.3 - Chronic kidney disease, stage 3 (moderate); D63.1 - Anemia in chronic kidney disease Is this a current diagnosis for this admission?: Yes Plan: We will order the iron study (5) COPD (chronic obstructive pulmonary disease) Qualifiers: COPD type: unspecified COPD Qualified Code(s): J44.9 - Chronic obstructive pulmonary disease, unspecified Is this a current diagnosis for this admission?: Yes Plan: Use the nebulizer as needed (6) Dehydration Is this a current diagnosis for this admission?: Yes (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
[2019-01-10] MEDS ORDERED: TOLVAPTAN 15 MG TABLET PO ONE (19:00)
--- NOTE | 2019-01-10 19:18 | PDOC CONSULTATION ---
Consultation Consult Date: 01/10/19 Provider Consulted: JODY FLORES Consult reason:: I was asked to see the patient for hyponatremia. History of Present Illness Admission Date/PCP: 01/08/19 17:16 WILIAN REID MD History of Present Illness: SAHRA GOMEZ is a 78 year old female with history of GIST, previous episode of hyponatremia, hypertension, and COPD who was admitted for altered mental status on 01/08/2019. Apparently the patient is getting a little bit more confused than her baseline and so the daughter brought her to the emergency room thinking that it might be her sodium being low that can cause this. There was also question whether the patient has dementia and was recently placed on Aricept by Dr. Reid. Evaluation on admission showed a normal CT scan of the head. Her sodium on admission was 129.2, yesterday was 130.9 and today 128.4. Her serum osmolality was 276 and urine osmolality is 270. Patient is also on Benicar/HCTZ and admission. Review of records revealed that in October she had normal sodium of 138.4. She had episodes of hyponatremia in the last of which was last July 2017. So far she has received 3 L of normal saline since admission. She is currently not receiving any IV fluids. Patient also came in with elevated BUN of 30, and creatinine of 1.84. Her baseline creatinine ranges from 0.7-0.92. Today her BUN is 19 and creatinine of 0.96. Monitor the patient she said somebody told her to drink a lot of water so she has been drinking about 6 bottles of water a day. She admits that she has been getting forgetful recently and she blames it on age. She denies any nausea, vomiting and diarrhea depending on the food that she eats. She denies any chest pains no shortness of breath. Past Medical History Cardiac Medical History: Reports: Hypertension-primary Pulmonary Medical History: Reports: Chronic Obstructive Pulmonary Disease (COPD) Renal/ Medical History: Reports: Hyponatremia Malignancy Medical History: Reports: Other - Gastrointestinal stromal tumor Musculoskeltal Medical History: Reports: Arthritis Psychiatric Medical History: Reports: Depression Past Surgical History Past Surgical History: Reports: Cholecystectomy, Hysterectomy, Other - Gastrointestinal tumor resections Social History Information Source: [facility] Records Smoking Status: Current Every Day Smoker Cigarettes Packs Per Day: 0.5 Number of Years Smokin Last Time Smoked: 01/07/2019 Frequency of Alcohol Use: None Hx Recreational Drug Use: No Drugs: None Hx Prescription Drug Abuse: No - Advance Directive Resuscitation Status: Full Code Family History Family History: Reviewed & Not Pertinent Parental Family History Reviewed: Yes Children Family History Reviewed: Yes Sibling(s) Family History Reviewed.: Yes Medication/Allergy Home Medications: Donepezil HCl [Aricept 5 mg Tablet] 5 mg PO QHS 01/09/19 Olmesartan/Hydrochlorothiazide [Benicar Hct 40-25 mg Tablet] 1 each PO DAILY 01/09/19 Allergies/Adverse Reactions: Sulfa (Sulfonamide Antibiotics) Allergy (Verified 10/04/18 15:20) Review of Systems All systems: reviewed and no additional remarkable complaints except as stated Review of Systems: Constitutional: ABSENT: chills, fatigue, fever(s), headache(s), weight gain, weight loss Eyes: ABSENT: visual disturbances Ears: ABSENT: hearing changes Cardiovascular: ABSENT: chest pain, dyspnea on exertion, edema, orthropnea, palpitations Respiratory: ABSENT: cough, dyspnea, hemoptysis Gastrointestinal: ABSENT: abdominal pain, constipation, diarrhea, hematemesis, hematochezia, nausea, vomiting Genitourinary: ABSENT: dysuria, hematuria Musculoskeletal: ABSENT: joint swelling Integumentary: ABSENT: rash, wounds Neurological: ABSENT: abnormal gait, abnormal speech, dizziness, focal weakness, numbness, syncope; admits memory lapses Psychiatric: ABSENT: anxiety, depression Endocrine: ABSENT: cold intolerance, heat intolerance, polydipsia, polyuria Hematologic/Lymphatic: ABSENT: easy bleeding, easy bruising, lymphadenopathy Physical Exam Vital Signs: Temp Pulse Resp BP Pulse Ox 99 F 71 17 141/52 H 100 01/10/19 14:00 01/10/19 14:00 01/10/19 14:00 01/10/19 14:00 01/10/19 14:00 Intake & Output 01/09/19 01/10/19 01/11/19 06:59 06:59 06:59 Intake Total 1240 1980 2440 Output Total 900 1300 1500 Balance 340 680 940 Weight 51.3 kg 51.3 kg Exam: General appearance: No acute distress, cooperative, well-developed, well- nourished Head exam: PRESENT: atraumatic, normocephalic Eye exam: PRESENT: Conjunctiva [place], EOMI, PERRLA. ABSENT: conjunctival inje ction, scleral icterus Mouth exam: PRESENT: moist, neck supple, tongue midline Neck exam: PRESENT: full ROM. ABSENT: carotid bruit, JVD, lymphadenopathy, thyromegaly Respiratory exam: PRESENT: clear to auscultation bilaterally. ABSENT: rales, rhonchi, stridor, wheezes Cardiovascular exam: PRESENT: RRR, +S1, +S2. ABSENT: systolic murmur Pulses: PRESENT: normal radial pulses, normal dorsalis pedis pulses GI/Abdominal exam: PRESENT: normal bowel sounds, soft. ABSENT: guarding, mass, tenderness Rectal exam: Deferred Extremities exam: PRESENT: full ROM. ABSENT: calf tenderness, pedal edema Musculoskeletal: PRESENT: full ROM. ABSENT: deformity Neurological exam: PRESENT: alert, Awake, Oriented to person, Oriented to place, Oriented to time, reflexes normal, CN II-XII grossly intact. ABSENT: motor sensory deficit Psychiatric exam: PRESENT: appropriate affect, normal mood. ABSENT: homicidal ideation, suicidal ideation Skin exam: PRESENT: intact, dry, warm. ABSENT: rash Results Laboratory Results: 01/10/19 05:29 01/10/19 05:29 01/10/19 01/10/19 05:29 05:29 WBC 6.1 RBC 4.35 Hgb 9.3 L Hct 29.0 L MCV 67 L MCH 21.5 L MCHC 32.2 RDW 18.4 H Plt Count 133 L Seg Neutrophils % Not Reportable Lymphocytes % Not Reportable Monocytes % Not Reportable Eosinophils % Not Reportable Basophils % Not Reportable Absolute Neutrophils Not Reportable Absolute Lymphocytes Not Reportable Absolute Monocytes Not Reportable Absolute Eosinophils Not Reportable Absolute Basophils Not Reportable Sodium 128.6 L Potassium 4.2 Chloride 99 Carbon Dioxide 22 Anion Gap 8 BUN 19 Creatinine 0.96 Est GFR ( Amer) > 60 Est GFR (Non-Af Amer) 57 L Glucose 94 Calcium 9.6 Magnesium 1.5 L 01/08/19 21:48 Clean Catch Midstream Urine Culture - Final Mixed Urogenital Brittany Impressions: Head CT 01/08/19 00:00 IMPRESSION: MILD CHRONIC CHANGES OF ATROPHY AND MICROVASCULAR ISCHEMIA. NO ACUTE PROCESS. EVIDENCE OF ACUTE STROKE: NO. Assessment & Plan - Diagnosis (1) Hyponatremia Is this a current diagnosis for this admission?: Yes Plan: Patient appears to be euvolemic. She has an inappropriate elevated urine osmolality. The saline IV hydration of 3 L did not make a difference in her sodium level. There is a high likelihood that the hydrochlorothiazide contributed to her hyponatremia. There is also high likelihood that patient could have SIADH given her clinical presentation. I will check her TSH, a.m. cortisol and uric acid. Agree with discontinuation of hydrochlorothiazide. Given the history of episodes of hyponatremia I do not think the patient should be on it at any time moving forward. Since there is a question whether her change in mental status is possibly due to hyponatremia versus underlying progressively developing dementia, I will give the patient a dose of tolvaptan tonight and hopefully will improve her sodium level tomorrow. If the sodium level has improved and the patient's mental status does not improve significantly then the alteration in her mental state could be secondary to underlying dementia. (2) Encephalopathy acute Is this a current diagnosis for this admission?: Yes Plan: Hyponatremia could be contributing to an underlying dementia. (3) Dementia Is this a current diagnosis for this admission?: Yes (4) Acute kidney injury Is this a current diagnosis for this admission?: Yes Plan: Currently resolved and at baseline kidney function. (5) Anemia Qualifiers: Anemia type: due to chronic kidney disease Chronic kidney disease stage: stage 3 (moderate) Qualified Code(s): N18.3 - Chronic kidney disease, stage 3 (moderate); D63.1 - Anemia in chronic kidney disease Is this a current diagnosis for this admission?: Yes Plan: Hematology following. (6) Gastrointestinal stromal tumor (GIST) Is this a current diagnosis for this admission?: Yes - Notes Notes: Thank you very much for this consultation. I will follow the patient with you. - Time Time Spent: 50 to 70 Minutes
[2019-01-10] MEDS: DONEPEZIL HCL 5 MG TABLET PO SCH (21:21)
[2019-01-11 05:05] LABS: HEMATOCRIT 25.9 % (36.0-47.0); HEMOGLOBIN 8.3 g/dL (12.0-15.5); MEAN CORPUSCULAR HEMOGLOBIN 21.2 pg (27.0-33.4); MEAN CORPUSCULAR HGB CONC 31.9 g/dL (32.0-36.0); MEAN CORPUSCULAR VOLUME 67 fl (80-97); PLATELET COUNT 146 10^3/uL (150-450); RED BLOOD COUNT 3.89 10^6/uL (3.72-5.28); RED CELL DISTRIBUTION WIDTH 18.4 % (11.5-14.0); WHITE BLOOD COUNT 4.6 10^3/uL (4.0-10.5)
[2019-01-11 05:17] LABS: ANION GAP 8 (5-19); BLOOD UREA NITROGEN 18 mg/dL (7-20); CALCIUM 9.5 mg/dL (8.4-10.2); CARBON DIOXIDE 23 mmol/L (22-30); CHLORIDE 103 mmol/L (98-107); GLUCOSE 84 mg/dL (75-110); POTASSIUM 3.9 mmol/L (3.6-5.0)
[2019-01-11] MEDS: FAMOTIDINE 20 MG TABLET PO SCH (05:35)
[2019-01-11 06:58] LABS: ABSOLUTE LYMPHOCYTES# (MANUAL) 1.2 10^3/uL (0.5-4.7); ABSOLUTE MONOCYTES # (MANUAL) 0.4 10^3/uL (0.1-1.4); ANISOCYTOSIS 2+; BASOPHILS % (MANUAL) 0 % (0-2); EOSINOPHILS % (MANUAL) 7 % (0-6); LYMPHOCYTES % (MANUAL) 26 % (13-45); MONOCYTES % (MANUAL) 8 % (3-13); NUCLEATED RED BLOOD CELLS 1 /100 WBC (0); SEGMENTED NEUTROPHILS % (MAN) 59 % (42-78); TOTAL CELLS COUNTED 100
[2019-01-11 06:59] LABS: HYPOCHROMASIA 2+; PLATELET COMMENT DECREASED
--- NOTE | 2019-01-11 08:18 | PDOC PROGRESS REPORT ---
Subjective Progress Note for:: 01/11/19 Subjective:: Clinically seems better, seems to be mentating better. Reason For Visit: AMS/ACUTE RENAL FAILURE/CONFUSION Physical Exam Vital Signs: Temp Pulse Resp BP Pulse Ox 98.3 F 79 14 129/59 H 96 01/11/19 08:06 01/11/19 08:06 01/11/19 08:06 01/11/19 08:06 01/11/19 08:06 Intake & Output 01/10/19 01/11/19 01/12/19 06:59 06:59 06:59 Intake Total 1980 2440 Output Total 1300 1500 Balance 680 940 Weight 51.3 kg 51.4 kg General appearance: PRESENT: no acute distress, well-developed, well-nourished Head exam: PRESENT: atraumatic, normocephalic Eye exam: PRESENT: conjunctiva pink, EOMI, PERRLA. ABSENT: scleral icterus Ear exam: PRESENT: normal external ear exam Mouth exam: PRESENT: moist, tongue midline Neck exam: ABSENT: carotid bruit, JVD, lymphadenopathy, thyromegaly Respiratory exam: PRESENT: clear to auscultation [place]. ABSENT: rales, rhonchi, wheezes Cardiovascular exam: PRESENT: RRR. ABSENT: diastolic murmur, rubs, systolic murmur Pulses: PRESENT: normal dorsalis pedis pul Vascular exam: PRESENT: normal capillary refill GI/Abdominal exam: PRESENT: normal bowel sounds, soft. ABSENT: distended, guarding, mass, organolmegaly, rebound, tenderness Rectal exam: PRESENT: deferred Extremities exam: PRESENT: full ROM. ABSENT: calf tenderness, clubbing, pedal edema Neurological exam: PRESENT: alert, awake, oriented to person, oriented to place, oriented to time, oriented to situation, CN II-XII grossly intact. ABSENT: motor sensory deficit Psychiatric exam: PRESENT: appropriate affect, normal mood. ABSENT: homicidal ideation, suicidal ideation Skin exam: PRESENT: dry, intact, warm. ABSENT: cyanosis, rash Results Laboratory Results: 01/11/19 04:27 01/11/19 04:27 01/11/19 01/11/19 01/11/19 04:27 04:27 04:27 WBC 4.6 RBC 3.89 Hgb 8.3 L Hct 25.9 L MCV 67 L MCH 21.2 L MCHC 31.9 L RDW 18.4 H Plt Count 146 L Seg Neutrophils % Not Reportable Lymphocytes % Not Reportable Monocytes % Not Reportable Eosinophils % Not Reportable Basophils % Not Reportable Absolute Neutrophils Not Reportable Absolute Lymphocytes Not Reportable Absolute Monocytes Not Reportable Absolute Eosinophils Not Reportable Absolute Basophils Not Reportable Sodium 133.6 L Potassium 3.9 Chloride 103 Carbon Dioxide 23 Anion Gap 8 BUN 18 Creatinine 0.94 Est GFR ( Amer) > 60 Est GFR (Non-Af Amer) 58 L Glucose 84 Uric Acid 7.0 Calcium 9.5 Magnesium 1.4 L TSH 1.31 01/08/19 21:48 Clean Catch Midstream Urine Culture - Final Mixed Urogenital Brittany Impressions: Head CT 01/08/19 00:00 IMPRESSION: MILD CHRONIC CHANGES OF ATROPHY AND MICROVASCULAR ISCHEMIA. NO ACUTE PROCESS. EVIDENCE OF ACUTE STROKE: NO. Assessment & Plan - Diagnosis (1) GIST (gastrointestinal stroma tumor), malignant, colon Is this a current diagnosis for this admission?: Yes Plan: Further treatment continued as an outpatient (2) Anemia Qualifiers: Anemia type: due to chronic kidney disease Chronic kidney disease stage: stage 3 (moderate) Qualified Code(s): N18.3 - Chronic kidney disease, stage 3 (moderate); D63.1 - Anemia in chronic kidney disease Is this a current diagnosis for this admission?: Yes Plan: Hemoglobin stable in the 8 range, plan for Procrit reinitiation as an outpatient
[2019-01-11] MEDS: ENOXAPARIN SODIUM INJ 30 MG/0.3 ML DISP.SYRIN SUBCUT SCH (09:41)
[2019-01-11] MEDS: DOCUSATE SODIUM 100 MG CAPSULE PO SCH ×2 (09:41→17:58)
--- NOTE | 2019-01-11 10:12 | PDOC PROGRESS REPORT ---
Subjective Progress Note for:: 01/11/19 Subjective:: Patient is currently doing much better Sodium is 133 seen by the nephrology Still have on and off confusion I think is all related to the dementia Reason For Visit: AMS/ACUTE RENAL FAILURE/CONFUSION Physical Exam Vital Signs: Temp Pulse Resp BP Pulse Ox 98.3 F 79 14 129/59 H 96 01/11/19 08:06 01/11/19 08:06 01/11/19 08:06 01/11/19 08:06 01/11/19 08:06 Intake & Output 01/10/19 01/11/19 01/12/19 06:59 06:59 06:59 Intake Total 1980 2440 Output Total 1300 1500 Balance 680 940 Weight 51.3 kg 51.4 kg General appearance: PRESENT: no acute distress, well-developed, well-nourished Head exam: PRESENT: atraumatic, normocephalic Eye exam: PRESENT: conjunctiva pink, EOMI, PERRLA. ABSENT: scleral icterus Ear exam: PRESENT: normal external ear exam Mouth exam: PRESENT: moist, tongue midline Neck exam: PRESENT: full ROM. ABSENT: carotid bruit, JVD, lymphadenopathy, thyromegaly Respiratory exam: PRESENT: clear to auscultation [place] Cardiovascular exam: PRESENT: RRR. ABSENT: diastolic murmur, rubs, systolic murmur Pulses: PRESENT: normal dorsalis pedis pul, +2 pedal pulses bilateral Vascular exam: PRESENT: normal capillary refill GI/Abdominal exam: PRESENT: normal bowel sounds, soft. ABSENT: distended, guarding, mass, organolmegaly, rebound, tenderness Rectal exam: PRESENT: deferred Musculoskeletal exam: PRESENT: ambulatory Neurological exam: PRESENT: alert, awake, oriented to person, oriented to place, oriented to time, oriented to situation, CN II-XII grossly intact. ABSENT: motor sensory deficit Psychiatric exam: PRESENT: appropriate affect, normal mood. ABSENT: homicidal ideation, suicidal ideation Skin exam: PRESENT: dry, intact, warm. ABSENT: cyanosis, rash Results Laboratory Results: 01/11/19 04:27 01/11/19 04:27 01/11/19 01/11/19 01/11/19 04:27 04:27 04:27 WBC 4.6 RBC 3.89 Hgb 8.3 L Hct 25.9 L MCV 67 L MCH 21.2 L MCHC 31.9 L RDW 18.4 H Plt Count 146 L Seg Neutrophils % Not Reportable Lymphocytes % Not Reportable Monocytes % Not Reportable Eosinophils % Not Reportable Basophils % Not Reportable Absolute Neutrophils Not Reportable Absolute Lymphocytes Not Reportable Absolute Monocytes Not Reportable Absolute Eosinophils Not Reportable Absolute Basophils Not Reportable Sodium 133.6 L Potassium 3.9 Chloride 103 Carbon Dioxide 23 Anion Gap 8 BUN 18 Creatinine 0.94 Est GFR ( Amer) > 60 Est GFR (Non-Af Amer) 58 L Glucose 84 Uric Acid 7.0 Calcium 9.5 Magnesium 1.4 L TSH 1.31 01/08/19 21:48 Clean Catch Midstream Urine Culture - Final Mixed Urogenital Brittany Impressions: Head CT 01/08/19 00:00 IMPRESSION: MILD CHRONIC CHANGES OF ATROPHY AND MICROVASCULAR ISCHEMIA. NO ACUTE PROCESS. EVIDENCE OF ACUTE STROKE: NO. Assessment & Plan - Diagnosis (1) Acute kidney injury Is this a current diagnosis for this admission?: Yes Plan: Currently all improving (2) GIST (gastrointestinal stroma tumor), malignant, colon Is this a current diagnosis for this admission?: Yes (3) Hyponatremia Is this a current diagnosis for this admission?: Yes Plan: Currently all better (4) Anemia Qualifiers: Anemia type: due to chronic kidney disease Chronic kidney disease stage: stage 3 (moderate) Qualified Code(s): N18.3 - Chronic kidney disease, stage 3 (moderate); D63.1 - Anemia in chronic kidney disease Is this a current diagnosis for this admission?: Yes Plan: We will order the iron study (5) COPD (chronic obstructive pulmonary disease) Qualifiers: COPD type: unspecified COPD Qualified Code(s): J44.9 - Chronic obstructive pulmonary disease, unspecified Is this a current diagnosis for this admission?: Yes Plan: Use the nebulizer as needed (6) Dehydration Is this a current diagnosis for this admission?: Yes Plan: IV fluids (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 Is this a current diagnosis for this admission?: Yes (8) Urinary tract infection Qualifiers: Urinary tract infection type: site unspecified Hematuria presence: without hematuria Qualified Code(s): N39.0 - Urinary tract infection, site not specified Is this a current diagnosis for this admission?: Yes (9) Hypertension Qualifiers: Hypertension type: essential hypertension Qualified Code(s): I10 - [place] l (primary) hypertension Is this a current diagnosis for this admission?: Yes Plan: Will restart the Benicar - Time Time Spent with patient: 15-24 minutes Medications reviewed and adjusted accordingly: Yes Within: Other - Plan Summary Plan Summary: The patient's remained stable hopefully discharge tomorrow
--- NOTE | 2019-01-11 10:49 | PDOC PROGRESS REPORT ---
Subjective Progress Note for:: 01/11/19 Subjective:: Patient appears to be more awake and alert today compared to when I see her early evening last night. Her daughter is at bedside. When I told the daughter what patient has told me last night that she was drinking 6 bottles of water the daughter said that is not true because patient is actually not drinking much. The daughter is telling me that the patient has been having this issue with hyponatremia repeatedly due to her ADH and it started after she quit smoking. Apparently the patient lives by herself and the daughter is just check on her and they checked the water bottles in the refrigerator so they know how much she is drinking. Patient says she feels better she appears and does not really have any new complaints. Reason For Visit: AMS/ACUTE RENAL FAILURE/CONFUSION Physical Exam Vital Signs: Temp Pulse Resp BP Pulse Ox 98.3 F 79 14 129/59 H 96 01/11/19 08:06 01/11/19 08:06 01/11/19 08:06 01/11/19 08:06 01/11/19 08:06 Intake & Output 01/10/19 01/11/19 01/12/19 06:59 06:59 06:59 Intake Total 1980 2440 Output Total 1300 1500 Balance 680 940 Weight 51.3 kg 51.4 kg Exam: General appearance: PRESENT: no acute distress, cooperative, fairly-developed, fairly-nourished, appears to be more with it today Head exam: PRESENT: atraumatic, normocephalic Eye exam: PRESENT: conjunctiva slightly pale, PERRLA. ABSENT: scleral icterus Neck exam: ABSENT: JVD Respiratory exam: PRESENT: Diminished breath sounds. ABSENT: crackles, rales, rhonchi, unlabored, wheezes Cardiovascular exam: PRESENT: Regular rate rhythm -+S1, +S2. ABSENT: diastolic murmur, systolic murmur GI/Abdominal exam: PRESENT: normal bowel sounds, soft. ABSENT: guarding, mass, tenderness Extremities exam: ABSENT: No edema Neurological exam: PRESENT: alert, awake, oriented to person, place and partly to time. Skin exam: PRESENT: dry, warm, Results Laboratory Results: 01/11/19 04:27 01/11/19 04:27 01/11/19 01/11/19 01/11/19 04:27 04:27 04:27 WBC 4.6 RBC 3.89 Hgb 8.3 L Hct 25.9 L MCV 67 L MCH 21.2 L MCHC 31.9 L RDW 18.4 H Plt Count 146 L Seg Neutrophils % Not Reportable Lymphocytes % Not Reportable Monocytes % Not Reportable Eosinophils % Not Reportable Basophils % Not Reportable Absolute Neutrophils Not Reportable Absolute Lymphocytes Not Reportable Absolute Monocytes Not Reportable Absolute Eosinophils Not Reportable Absolute Basophils Not Reportable Sodium 133.6 L Potassium 3.9 Chloride 103 Carbon Dioxide 23 Anion Gap 8 BUN 18 Creatinine 0.94 Est GFR ( Amer) > 60 Est GFR (Non-Af Amer) 58 L Glucose 84 Uric Acid 7.0 Calcium 9.5 Magnesium 1.4 L TSH 1.31 01/08/19 21:48 Clean Catch Midstream Urine Culture - Final Mixed Urogenital Brittany Impressions: Head CT 01/08/19 00:00 IMPRESSION: MILD CHRONIC CHANGES OF ATROPHY AND MICROVASCULAR ISCHEMIA. NO ACUTE PROCESS. EVIDENCE OF ACUTE STROKE: NO. Assessment & Plan - Diagnosis (1) Hyponatremia Is this a current diagnosis for this admission?: Yes Plan: Likely secondary to combination of hydrochlorothiazide and SIADH. Her TSH, cortisol level and uric acid are normal. She had good response with a dose of tolvaptan with improvement of her sodium level. Her mental status did improve with improvement of sodium level. At this point I will just continue to hold off on the hydrochlorothiazide and even instructed the daughter that patient should not ever be on hydrochlorothiazide due to these episodes of hyponatremia. Also educated them regarding water restriction. At this point I do not think the patient needs to be on maintenance tolvaptan for as long as she gets off the hydrochlorothiazide. (2) Encephalopathy acute Is this a current diagnosis for this admission?: Yes Plan: Likely due to acute exacerbation of hyponatremia with underlying dementia. Ment al status improved today. (3) Dementia Is this a current diagnosis for this admission?: Yes (4) Acute kidney injury Is this a current diagnosis for this admission?: Yes Plan: Resolved, currently at baseline. (5) Anemia Qualifiers: Anemia type: due to chronic kidney disease Chronic kidney disease stage: stage 3 (moderate) Qualified Code(s): N18.3 - Chronic kidney disease, stage 3 (moderate); D63.1 - Anemia in chronic kidney disease Is this a current diagnosis for this admission?: Yes (6) Gastrointestinal stromal tumor (GIST) Is this a current diagnosis for this admission?: Yes - Time Time with patient: 15-25 minutes
[2019-01-11] MEDS: DONEPEZIL HCL 5 MG TABLET PO SCH (21:37)
[2019-01-12] MEDS: FAMOTIDINE 20 MG TABLET PO SCH (06:26)
[2019-01-12] MEDS: ENOXAPARIN SODIUM INJ 30 MG/0.3 ML DISP.SYRIN SUBCUT SCH (09:43)
[2019-01-12] MEDS: DOCUSATE SODIUM 100 MG CAPSULE PO SCH (09:43)
--- NOTE | 2019-01-12 10:21 | PDOC PROGRESS REPORT ---
Subjective Progress Note for:: 01/12/19 Subjective:: Patient feels strong this morning, it appears that palliative care has been set up at home, she is doing well otherwise. We had a long discussion this morning, we spent about 45 minutes in discussion this morning. Reason For Visit: AMS/ACUTE RENAL FAILURE/CONFUSION Physical Exam Vital Signs: Temp Pulse Resp BP Pulse Ox 98.6 F 62 15 124/69 98 01/12/19 07:22 01/12/19 07:22 01/12/19 07:22 01/12/19 07:22 01/12/19 07:22 Intake & Output 01/11/19 01/12/19 01/13/19 06:59 06:59 06:59 Intake Total 2440 1070 Output Total 1500 800 Balance 940 270 Weight 51.4 kg 51.6 kg General appearance: PRESENT: no acute distress, well-developed, well-nourished Head exam: PRESENT: atraumatic, normocephalic Eye exam: PRESENT: conjunctiva pink, EOMI, PERRLA. ABSENT: scleral icterus Ear exam: PRESENT: normal external ear exam Mouth exam: PRESENT: moist, tongue midline Neck exam: ABSENT: carotid bruit, JVD, lymphadenopathy, thyromegaly Respiratory exam: PRESENT: clear to auscultation [place]. ABSENT: rales, rhonchi, wheezes Cardiovascular exam: PRESENT: RRR. ABSENT: diastolic murmur, rubs, systolic murmur Pulses: PRESENT: normal dorsalis pedis pul Vascular exam: PRESENT: normal capillary refill GI/Abdominal exam: PRESENT: normal bowel sounds, soft. ABSENT: distended, guarding, mass, organolmegaly, rebound, tenderness Rectal exam: PRESENT: deferred Extremities exam: PRESENT: full ROM. ABSENT: calf tenderness, clubbing, pedal edema Neurological exam: PRESENT: alert, awake, oriented to person, oriented to place, oriented to time, oriented to situation, CN II-XII grossly intact. ABSENT: motor sensory deficit Psychiatric exam: PRESENT: appropriate affect, normal mood. ABSENT: homicidal ideation, suicidal ideation Skin exam: PRESENT: dry, intact, warm. ABSENT: cyanosis, rash Results Laboratory Results: 01/11/19 04:27 01/11/19 04:27 Impressions: Head CT 01/08/19 00:00 IMPRESSION: MILD CHRONIC CHANGES OF ATROPHY AND MICROVASCULAR ISCHEMIA. NO ACUTE PROCESS. EVIDENCE OF ACUTE STROKE: NO. Assessment & Plan - Diagnosis (1) GIST (gastrointestinal stroma tumor), malignant, colon Is this a current diagnosis for this admission?: Yes Plan: Further treatment as an outpatient, will follow (2) Anemia Qualifiers: Anemia type: due to chronic kidney disease Chronic kidney disease stage: stage 3 (moderate) Qualified Code(s): N18.3 - Chronic kidney disease, stage 3 (moderate); D63.1 - Anemia in chronic kidney disease Is this a current diagnosis for this admission?: Yes Plan: We will give Procrit shot today
[2019-01-12] MEDS ORDERED: EPOETIN ALFA EPBX SUBCUT ONE (11:00)
[2019-01-12] MEDS ORDERED: DISPOSABLE SUBCUT ONE (11:00)
[2019-01-12 11:43] LABS: ALBUMIN 3.9 g/dL (3.5-5.0); ALKALINE PHOSPHATASE 62 U/L (38-126); ANION GAP 7 (5-19); ASPARTATE AMINO TRANSFERASE 24 U/L (14-36); BILIRUBIN,DIRECT 0.2 mg/dL (0.0-0.4); BILIRUBIN,TOTAL 0.8 mg/dL (0.2-1.3); BLOOD UREA NITROGEN 16 mg/dL (7-20); CARBON DIOXIDE 27 mmol/L (22-30); CHLORIDE 103 mmol/L (98-107); GLUCOSE 84 mg/dL (75-110); POTASSIUM 4.6 mmol/L (3.6-5.0); TOTAL PROTEIN 5.7 g/dL (6.3-8.2)
[2019-01-12 12:48] VITALS: BP 115/66
--- NOTE | 2019-01-23 12:03 | PDOC DISCHARGE SUMMARY ---
General - Admit/Disc Date/PCP Admission Date/Primary Care Provider: 01/08/19 17:16 WILIAN REID MD Discharge Date: 01/12/19 - Discharge Diagnosis (1) Acute kidney injury Is this a current diagnosis for this admission?: Yes Summary: Currently all stable follow outpatients nephrology (2) GIST (gastrointestinal stroma tumor), malignant, colon Is this a current diagnosis for this admission?: Yes (3) Hyponatremia Is this a current diagnosis for this admission?: Yes Summary: As per discussed with the nephrology currently all stable fluid restrictions and discontinues to hydrochlorothiazide and follow next week (4) Anemia Is this a current diagnosis for this admission?: Yes Summary: 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 (5) COPD (chronic obstructive pulmonary disease) Is this a current diagnosis for this admission?: Yes (6) Dehydration Is this a current diagnosis for this admission?: Yes Summary: Clear all resolved (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 Is this a current diagnosis for this admission?: Yes Summary: Fluid restrictions (8) Urinary tract infection Is this a current diagnosis for this admission?: Yes Summary: Cultures negative no need for antibiotic (9) Hypertension Is this a current diagnosis for this admission?: Yes Summary: Currently all normal without medications and discontinued the hydrochlorothiazide and hold the Benicar follow with the Dr. Reid in 2 days and readjust the medications - Additional Information Resuscitation Status: Full Code Discharge Diet: Regular Discharge Activity: Activity As Tolerated Home Medications: Donepezil HCl [Aricept 5 mg Tablet] 5 mg PO QHS 01/09/19 History of Present Illness History of Present Illness: SAHRA GOMEZ is a 78 year old female This is a 78-year-old female with a history ofgastro-intestinal tumor post resection was couple of months back and history of intestinal cancers currently getting the chemo pills from Dr. Randhawa with the history of the hyponatremia history of dementia and history of the hypertension's brought to the emergency departments by the daughter with increased more confusion since last couple of days and daughter thinks may be a possible underlying hyponatremia According to the daughter patient is always have a sodium problem and always have a confusion on and off her entire life and Dr. Reid put the patient on Aricept for the dementia Patient seen by the psychiatrist suggest the Depakote and BuSpar the last admissions According to the daughter patient's getting more confused since last 1 week she went to the Dr. Randhawa's office had a blood work done and patient hemoglobin is less than 10 and patient received a Procrit She did have underlying some chronic kidney disease patients in the emergency department creatinine was 1.83 and patient's was creatinine normal discharge Patient's urine is positive full leuk esterase and patient received IV Rocephin in the ER Patient's sodium is 129 According to the daughter patient is not eating well Denied any chest pain to than any shortness of the breath no abdominal pain no nausea no vomiting Patient seems to be more confused Patient CT of the head is also negative Very extensive discussions with the daughter in the emergency departments admit the patient's in a telemetry bed Patient's daughters already make an appointment to see the another oncologist by Dr. Randhawa is leaving Not sure about the chemo pills according to the daughters which makes the patient is confused Discussed about the CODE STATUS patient was DNR before but not sure at this point she will discuss with her sisters Hospital Course Hospital Course: Is a 78-year-old female's presenting the emergency department with altered mental status with a significant underlying dementia's per family noticed that the most likely happened with the hyponatremia and anemia Patient at this point sodium was 128 decided to admit in the hospital Patient was seen by the nephrology and line up machine operator Patient's hemoglobin is stable and sodium level is also stable Patient was taking the hydrochlorothiazide currently discontinues which helped the patient's sodium level Also discussed with the patient and the family about fluid restrictions Patients have a significant underlying dementia also part of some confusions patient with some intestinal cancers and a chronic anemia currently follow with the oncologist Patient is walking the hallway without any problems p.o. 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 ABSENT: scleral icterus Ear exam: PRESENT: normal external ear exam Mouth exam: PRESENT: moist, tongue midline Neck exam: PRESENT: full ROM. ABSENT: carotid bruit, JVD, lymphadenopathy, thyr omegaly Respiratory exam: PRESENT: clear to auscultation keturah Cardiovascular exam: PRESENT: RRR. ABSENT: diastolic murmur, rubs, systolic murmur Pulses: PRESENT: normal dorsalis pedis pul, +2 pedal pulses bilateral Vascular exam: PRESENT: normal capillary refill GI/Abdominal exam: PRESENT: normal bowel sounds, soft. ABSENT: distended, guarding, mass, organolmegaly, rebound, tenderness Rectal exam: PRESENT: deferred Musculoskeletal exam: PRESENT: ambulatory Neurological exam: PRESENT: alert, awake, oriented to person, oriented to place, oriented to time, oriented to situation, CN II-XII grossly intact. ABSENT: motor sensory deficit Psychiatric exam: PRESENT: appropriate affect, normal mood. ABSENT: homicidal ideation, suicidal ideation Skin exam: PRESENT: dry, intact, warm. ABSENT: cyanosis, rash Results Laboratory Results: 01/11/19 04:27 Impressions: Head CT 01/08/19 00:00 IMPRESSION: MILD CHRONIC CHANGES OF ATROPHY AND MICROVASCULAR ISCHEMIA. NO ACUTE PROCESS. EVIDENCE OF ACUTE STROKE: NO. Qualifiers - * PATIENT BEING DISCHARGED WITH ANY OF THE FOLLOWING DIAGNOSIS: No VTE patient discharged on overlapping Therapy?: Yes Acute Heart Failure - Is this a Heart Failure Patient?: No Plan Time Spent: Greater than 30 Minutes - Follow with Dr. Reid in 3 days in 3 adjust the blood pressure medications Follow with hematology and oncology Follow with the nephrology
== END 2019-01-12 13:10 | disposition home health service (06) | DRG 643 ==
LOC: ER 12:38 → EH 17:16 → 4S 18:50
PROVIDERS: ADMIT Internal Medicine; ATTEND Internal Medicine
DX: E22.2 Syndrome of inappropriate secretion of antidiuretic hormone (principal); G93.41 Metabolic encephalopathy; N17.9 Acute kidney failure, unspecified; C49.A4 Gastrointestinal stromal tumor of large intestine; N39.0 Urinary tract infection, site not specified; I12.9 Hypertensive chronic kidney disease with stage 1 through stage 4 chronic kidney disease, or unspecified chronic kidney disease; E87.5 Hyperkalemia; F03.90 Unspecified dementia, unspecified severity, without behavioral disturbance, psychotic disturbance, mood disturbance, and anxiety; J44.9 Chronic obstructive pulmonary disease, unspecified; F17.200 Nicotine dependence, unspecified, uncomplicated; D63.1 Anemia in chronic kidney disease; N18.3 Chronic kidney disease, stage 3 (moderate); Z90.49 Acquired absence of other specified parts of digestive tract; Z79.899 Other long term (current) drug therapy; Z88.2 Allergy status to sulfonamides
CPT/HCPCS: 36415; 70450; 80048; 80053; 81001; 82140; 82272; 82533; 82607; 82728; 82746; 83540; 83550; 83735; 83930; 83935; 84443; 84550; 84588; 85025; 85045; 87040; 87086; 93005; 93010; 99285; A9270-GY; J0696; J1630; J1650; J3490; J7030; Q5105

== ENCOUNTER 2019-03-15 01:29 | Emergency (ER) | payer MEDICARE, BC ==
[2019-03-15 05:42] LABS: ALBUMIN 2.8 g/dL (3.5-5.0); ALKALINE PHOSPHATASE 260 U/L (38-126); ANION GAP 5 (5-19); ASPARTATE AMINO TRANSFERASE 39 U/L (14-36); BILIRUBIN,DIRECT 0.5 mg/dL (0.0-0.4); BLOOD UREA NITROGEN 31 mg/dL (7-20); CALCIUM 9.1 mg/dL (8.4-10.2); CARBON DIOXIDE 22 mmol/L (22-30); CHLORIDE 108 mmol/L (98-107); GLUCOSE 89 mg/dL (75-110); POTASSIUM 4.7 mmol/L (3.6-5.0); TOTAL PROTEIN 5.1 g/dL (6.3-8.2)
--- NOTE | 2019-03-15 06:08 | ER Document Report ---
ED General - General Chief Complaint: Skin Tear(s) Stated Complaint: LACERATION TO THE ARM Time Seen by Provider: 03/15/19 06:02 Primary Care Provider: WILIAN REID MD [Primary Care Provider] - Follow up as needed TRAVEL OUTSIDE OF THE [place] IN LAST 30 DAYS: No - HPI Patient complains to provider of: skin tear, back pain Notes: 78-year-old female presents with skin tear left forearm. Patient has gastrointestinal cancer takes daily home oral chemo pills. Family also states patient has not been acting herself since Monday. Has history of electrolyte abnormalities including hyponatremia because her acting like this. Patient also endorsing new or back pain 6/10 stabbing in nature lumbar spine without radiation nothing makes it better or worse. Patient denies fever chills. Bleeding controlled from her skin to her left forearm. - Related Data Allergies/Adverse Reactions: Sulfa (Sulfonamide Antibiotics) Allergy (Verified 10/04/18 15:20) Past Medical History - Social History Smoking Status: Current Every Day Smoker Chew tobacco use (# tins/day): No Family History: Reviewed & Not Pertinent Patient has suicidal ideation: No Patient has homicidal ideation: No - Past Medical History Cardiac Medical History: Reports: Hx Hypertension Pulmonary Medical History: Reports: Hx COPD Neurological Medical History: Reports: Hx Cerebrovascular Accident. Denies: Hx Seizures Renal/ Medical History: Denies: Hx Peritoneal Dialysis Musculoskeletal Medical History: Reports Hx Arthritis Psychiatric Medical History: Reports: Hx Depression Past Surgical History: Reports: Hx Abdominal Surgery, Hx Cholecystectomy, Hx Hysterectomy, Other - Gastrointestinal tumor resections - Immunizations Immunizations up to date: Yes Hx Diphtheria, Pertussis, Tetanus Vaccination: Yes Hx Pneumococcal Vaccination: 03/20/14 Review of Systems - Review of Systems Notes: REVIEW OF SYSTEMS: CONSTITUTIONAL: -fevers, -chills EENT: -eye pain, -difficulty swallowing, -nasal congestion CARDIOVASCULAR: -chest pain, -syncope. RESPIRATORY: -cough, -SOB GASTROINTESTINAL: -abdominal pain, -nausea, -vomiting, -diarrhea GENITOURINARY: -dysuria, -hematuria MUSCULOSKELETAL: positive back pain, -neck pain SKIN: positive skin tear left forearm HEMATOLOGIC: -easy bruising or bleeding. LYMPHATIC: -swollen, enlarged glands. NEUROLOGICAL: -altered mental status or loss of consciousness, -headache, - neurologic symptoms PSYCHIATRIC: -anxiety, -depression. ALL OTHER SYSTEMS REVIEWED AND NEGATIVE. Physical Exam - Vital signs Vitals: Temp Pulse Resp BP Pulse Ox 98.1 F 60 18 190/79 H 97 03/15/19 01:39 03/15/19 01:39 03/15/19 01:39 03/15/19 01:39 03/15/19 01:39 - Notes Notes: PHYSICAL EXAMINATION: GENERAL: Well-appearing, well-nourished and in no acute distress. HEAD: Atraumatic, normocephalic. EYES: Pupils equal round and reactive to light, extraocular movements intact, sclera anicteric, conjunctiva are normal. ENT: nares patent, oropharynx clear without exudates. Moist mucous membranes. NECK: Normal range of motion, supple without lymphadenopathy LUNGS: Breath sounds clear to auscultation bilaterally and equal. No wheezes rales or rhonchi. HEART: Regular rate and rhythm without murmurs ABDOMEN: Soft, nontender, normoactive bowel sounds. No guarding, no rebound. No masses appreciated. EXTREMITIES: Normal range of motion, no pitting or edema. No cyanosis. NEUROLOGICAL: Cranial nerves grossly intact. Normal speech, normal gait. Normal sensory and motor exams. PSYCH: Normal mood, normal affect. SKIN: Large flap skin tear left total length approximately 3 inches 2 additional smaller skin tears distal to the main skin tear each about 1 inch in size. Course - Re-evaluation Re-evalutation: 03/15/19 06:13 78-year-old female presents with a skin tear on the left forearm. Patient also endorses altered mental status of some degree and back pain. 03/15/19 09:02 Patient's extensive lab work-up unremarkable electrolytes near normal, no signs of anemia. Patient has CAT scan abdomen pelvis performed along with lumbar spine, no acute processes noted no fractures. Patient's pain now well con trolled. Patient skin tear dressed in the emergency department successfully. Patient be discharged home follow-up at PCP and oncology given prescription for oral opioid therapy. Given strict return precautions if anything should worsen or change please return to the department. - Vital Signs Vital signs: Temp Pulse Resp BP Pulse Ox 98.1 F 60 18 190/79 H 97 03/15/19 01:39 03/15/19 04:19 03/15/19 04:19 03/15/19 04:19 03/15/19 04:19 - Laboratory Result Diagrams: 03/15/19 04:50 03/15/19 04:50 Laboratory results interpreted by me: 03/15/19 03/15/19 03/15/19 04:40 04:50 04:50 WBC 3.6 L Hgb 9.2 L Hct 28.8 L MCV 70 L MCH 22.2 L MCHC 31.8 L RDW 19.0 H Plt Count 137 L Monocytes % (Manual) 2 L Eosinophils % (Manual) 7 H Sodium 134.5 L Chloride 108 H BUN 31 H Est GFR (MDRD) Non-Af 51 L Direct Bilirubin 0.5 H AST 39 H Alkaline Phosphatase 260 H Total Protein 5.1 L Albumin 2.8 L Urine Protein 100 H Urine Ascorbic Acid 20 H Discharge - Discharge Clinical Impression: Skin tear Back pain Qualifiers: Back pain location: low back pain Chronicity: chronic Back pain laterality: bilateral Sciatica presence: without sciatica Qualified Code(s): M54.5 - Low back pain; G89.29 - Other chronic pain Condition: Stable Disposition: HOME, SELF-CARE Instructions: Low Back Pain ([facility]), Skin Tear ([facility]) Prescriptions: Oxycodone HCl [Oxycontin Ir 5 Mg Tablet] 1 - 2 mg PO Q4H PRN #15 tablet PRN Reason: For Pain Referrals: WILIAN REID MD [Primary Care Provider] - Follow up as needed
[2019-03-15 06:09] LABS: APPEARANCE,URINE SLIGHTLY-CLOUDY; BILIRUBIN,URINE NEGATIVE (NEGATIVE); COLOR,URINE YELLOW; GLUCOSE, URINE NEGATIVE (NEGATIVE); KETONES,URINE NEGATIVE (NEGATIVE); LEUKOCYTE ESTERASE,URINE NEGATIVE (NEGATIVE); NITRITE,URINE NEGATIVE (NEGATIVE); PROTEIN,URINE 100 mg/dL (NEGATIVE); URINE SPECIFIC GRAVITY 1.012; UROBILINOGEN,URINE NEGATIVE mg/dL (<2.0)
[2019-03-15] MEDS ORDERED: MORPHINE SULFATE 10 MG/ML INJ IV ONE ×2 (06:22→08:01)
[2019-03-15 06:40] LABS: HEMATOCRIT 28.8 % (36.0-47.0); HEMOGLOBIN 9.2 g/dL (12.0-15.5); MEAN CORPUSCULAR HEMOGLOBIN 22.2 pg (27.0-33.4); MEAN CORPUSCULAR HGB CONC 31.8 g/dL (32.0-36.0); MEAN CORPUSCULAR VOLUME 70 fl (80-97); PLATELET COUNT 137 10^3/uL (150-450); RED BLOOD COUNT 4.14 10^6/uL (3.72-5.28); WHITE BLOOD COUNT 3.6 10^3/uL (4.0-10.5)
[2019-03-15 06:57] LABS: ABSOLUTE LYMPHOCYTES# (MANUAL) 1.4 10^3/uL (0.5-4.7); ABSOLUTE MONOCYTES # (MANUAL) 0.1 10^3/uL (0.1-1.4); BASOPHILS % (MANUAL) 0 % (0-2); EOSINOPHILS % (MANUAL) 7 % (0-6); MONOCYTES % (MANUAL) 2 % (3-13); SEGMENTED NEUTROPHILS % (MAN) 53 % (42-78); TOTAL CELLS COUNTED 100
[2019-03-15 07:03] LABS: ANISOCYTOSIS 2+; HYPOCHROMASIA 2+; PLATELET COMMENT ADEQUATE; SCHISTOCYTES 1+; TARGET CELLS 1+; TEAR DROP CELLS 1+
[2019-03-15 07:05] LABS: LYMPHOCYTES % (MANUAL) 38 % (13-45)
--- NOTE | 2019-03-15 07:39 | RADIOLOGY REPORT (SQ) ---
EXAM DESCRIPTION: CT ABDOMEN PELVIS WITH IV CONTRAST COMPLETED DATE/TME: 03/15/2019 06:08 CLINICAL HISTORY: 78 years, Female, abdomen pain COMPARISON: 10/05/2018 TECHNIQUE: Axial CT images of the abdomen and pelvis were obtained after the infiltration by the contrast. Sagittal and coronal reformats were performed. DLP 542 Images stored on PACS. All CT scanners at this facility use dose modulation, iterative reconstruction, and/or weight based dosing when appropriate to reduce radiation dose to as low as reasonably achievable (ALARA). [facility]: Dose Right [facility]: CareDose [facility]: Dose Right [facility]: Teradose 4D [facility]: Smart [employer] LIMITATIONS: None. FINDINGS: The lung bases are clear. Multiple hepatic cysts are again noted. Cholecystectomy. The pancreas, spleen, and adrenal glands are unremarkable. Bilateral renal cysts are noted. No evidence of hydronephrosis bilaterally. There is no intraperitoneal free air or fluid. There is no lymphadenopathy. There are atherosclerotic calcific effusions of the abdominal aorta without evidence of an aneurysm. There is a small hiatal hernia. There is mild thickening of the small bowel. The appendix is not uniquely identified, however there are no pericecal inflammatory changes. There is a moderate amount of stool within the colon. Diverticulosis is noted without evidence of diverticulitis. The previously seen noncalcified mesenteric masses along the ventral abdomen are no longer visualized. There is a persistent the previously seen calcified mesenteric masses along the right side of the abdomen are no longer visualized. There are two calcified mesenteric masses along the left side abdomen, one of which was not present on the prior. Hysterectomy. The urinary bladder is unremarkable. There are no lytic or blastic bone lesions. There is multilevel spondylosis, worse at L2-L3. IMPRESSION: Mild thickening of the small bowel, which is nonspecific and may be due to an enteritis. The previously seen mesenteric masses along the ventral abdomen and right side of the abdomen are no longer visualized. There are two calcified mesenteric masses along the left side the abdomen, one of which was not present on the prior. Small hiatal hernia. Diverticulosis without evidence of diverticulitis. TECHNICAL DOCUMENTATION: Quality ID # 436: Final reports with documentation of one or more dose reduction techniques (e.g., Automated exposure control, adjustment of the mA and/or kV according to patient size, use of iterative reconstruction technique) copyright 2011 [employer]- All Rights Reserved
--- NOTE | 2019-03-15 08:34 | RADIOLOGY REPORT (SQ) ---
EXAM DESCRIPTION: CT LUMBAR SPINE WITH COMPLETED DATE/TIME: 03/15/2019 6:47 am REASON FOR STUDY: back pain COMPARISON: None. TECHNIQUE: Axial images acquired through the lumbar spine without intravenous contrast. Images revi ewed with lung, soft tissue and bone windows. Reconstructed coronal and sagittal MPR images reviewed . All images stored on PACS. All CT scanners at this facility use dose modulation, iterative reconstruction, and/or weight based d osing when appropriate to reduce radiation dose to as low as reasonably achievable (ALARA). [facility]: Dose Right [facility]: CareDose [facility]: Dose Right [facility]: Teradose 4D [facility]: Smart [employer] RADIATION DOSE: CT Rad equipment meets quality standard of care and radiation dose reduction techniq ues were employed. CTDIvol: 5.5 mGy. DLP: 543 mGy-cm. mGy. LIMITATIONS: None. FINDINGS: SEGMENTATION: Normal. No transitional anatomy. ALIGNMENT: Dextroscoliosis, apex L2-L3. VERTEBRAL BODIES: No fractures. No dislocation. No acute findings. DISCS: There is focally severe disc degenerative disease and osteophytosis at L2-L3 associated dextro scoliosis. PEDICLES, TRANSVERSE PROCESSES: No fractures. No dislocation. No acute findings. FACETS, POSTERIOR ELEMENTS: No fractures. No dislocation. No spinal stenosis. HARDWARE: None in the spine. VISUALIZED RIBS: No fractures. SOFT TISSUES: Please see separately dictated CT examination of the abdomen and pelvis. OTHER: No other significant finding. IMPRESSION: 1. No fracture or dislocation of the lumbar spine. 2. Dextroscoliosis, apex at L2-L3 with focally severe disc degenerative disease and osteophytosis. There is otherwise mild multilevel disc space height loss. Lumbar disc and neural foraminal patholog y may be further evaluated by MRI if indicated by localizing signs and symptoms. TECHNICAL DOCUMENTATION: JOB ID: [id number] Quality ID # [id number]: Final reports with documentation of one or more dose reduction techniques (e.g., Au tomated exposure control, adjustment of the mA and/or kV according to patient size, use of iterative reconstruction technique) 2010 [employer]- All Rights Reserved Reading location - IP/workstation name: [email or web address]
[2019-03-15 09:11] VITALS: BP 149/57
== END 2019-03-15 09:13 | disposition home or self-care (01) ==
LOC: ER 01:29
DX: S51.812A Laceration without foreign body of left forearm, initial encounter (principal); X58.XXXA Exposure to other specified factors, initial encounter; G89.29 Other chronic pain; M54.5 Low back pain; I10 Essential (primary) hypertension; F17.200 Nicotine dependence, unspecified, uncomplicated; Z90.49 Acquired absence of other specified parts of digestive tract; Z90.710 Acquired absence of both cervix and uterus; Z88.2 Allergy status to sulfonamides; C26.9 Malignant neoplasm of ill-defined sites within the digestive system; Z79.899 Other long term (current) drug therapy
CPT/HCPCS: 96376; 99283; 96374; 36415; 85025; 80053; 81001; 72132; 74177; J2270

== ENCOUNTER → 2019-05-17 | Outpatient (CLI) | payer MEDICARE, BC ==
--- NOTE | 2019-05-17 09:39 | RADIOLOGY REPORT (SQ) ---
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 TECHNIQUE: CT scan of the chest performed using helical scanning technique with dynamic intravenous contrast injection. Images reviewed with lung, soft tissue and bone windows. Reconstructed coronal a nd sagittal MPR images reviewed. All images stored on PACS. All CT scanners at this facility use dose modulation, iterative reconstruction, and/or weight based d osing when appropriate to reduce radiation dose to as low as reasonably achievable (ALARA). [facility]: Dose Right [facility]: CareDose [facility]: Dose Right [facility]: Teradose 4D [facility]: Smart [employer] RADIATION DOSE: CT Rad equipment meets quality standard of care and radiation dose reduction techniq ues were employed. CTDIvol: 4.4 - 4.6 mGy. DLP: 602 mGy-cm. . LIMITATIONS: None. FINDINGS: AXILLAE: No adenopathy. CHEST WALL: No masses. No subcutaneous air. LUNGS: There are 2 small right-sided subpleural nodule stable in appearance. These are best demonstr ated on series 6, image 82 and 80. These are grossly unchanged. Occasional parenchymal nodule is no franca but all are under 3 mm in size. These are nonspecific. PLEURA: No effusions. No calcifications. THYROID: The thyroid is not imaged on today's scan. HILAR AND MEDIASTINAL STRUCTURES: No identified masses or abnormal nodes. AORTA AND GREAT VESSELS: No aneurysm. No dissection. PULMONARY ARTERIES: No identified pulmonary emboli. Study not optimized for the pulmonary arteries. HEART: No pericardial effusion. HARDWARE AND LIFELINES: None. BONES: No significant finding. OTHER: No other significant finding. IMPRESSION: Stable CT the chest with small right-sided parenchymal nodules. These are nonspecific a nd again unchanged. COMPARISON: None. RADIATION DOSE: CT Rad equipment meets quality standard of care and radiation dose reduction techniq ues were employed. CTDIvol: 4.4 - 4.6 mGy. DLP: 602 mGy-cm. mGy. TECHNIQUE: CT scan of the abdomen and pelvis performed with intravenous and oral contrast using leonides ortega scanning technique with dynamic intravenous contrast injection. Images reviewed with lung, soft tissue and bone windows. Reconstructed coronal and sagittal MPR images reviewed. Delayed images for evaluation of the urinary system also acquired and evaluated. All images stored on PACS. All CT scanners at this facility use dose modulation, iterative reconstruction, and/or weight based d osing when appropriate to reduce radiation dose to as low as reasonably achievable (ALARA). [facility]: Dose Right [facility]: [employer] [facility]: Dose Right [facility]: Teradose 4D [facility]: [employer] FINDINGS: LIVER: Persistent lesion in the right lobe of the liver best demonstrated on series 3, fabio ge 17. This measures 2 cm in greatest dimensions. Previously this measured just under 3 cm. There are additional 2 hypoechoic areas in the dome of liver these are stable and could represent cyst or s mall metastatic lesions. These are better demonstrated on today's study most likely due to timing of the bolus. SPLEEN: Normal size. No focal lesions. PANCREAS: No masses. No significant calcifications. No adjacent inflammation or peripancreatic flui d collections. Pancreatic duct not dilated. GALLBLADDER: Surgically absent. ADRENAL GLANDS: No significant masses or asymmetry. RIGHT KIDNEY AND URETER: Small right cysts are again noted. No significant calcifications. No hyd ronephrosis or hydroureter. LEFT KIDNEY AND URETER: Small left renal cysts are again noted. No significant calcifications. No hydronephrosis or hydroureter. AORTA AND VESSELS: Atherosclerotic change. No aneurysmal dilatation. RETROPERITONEUM: No retroperitoneal adenopathy, hemorrhage or masses. LARGE AND SMALL BOWEL: No dilatation. No masses. No wall thickening. APPENDIX: Normal. ABDOMINAL WALL: No hernia or masses. PERITONEAL CAVITY: Numerous small peritoneal implants. These have largely decreased in size when com pared to prior study. Some demonstrate calcification. These range in size from 4 to 5 mm up to 2.4 cm. The largest is in the left mid abdomen best demonstrated on series 3, image 34. This is partial ly calcified as well. Previously this measured up to 3 cm in diameter. PELVIS: There is a soft tissue mass in the midline of the pelvis measured at 4.6 cm. This contains c alcification. When compared to prior study done 05/09/2018 he was a. slight more in the left lower qu adrant but has moved into the pelvis. BONES: Stable in appearance. OTHER: No other significant finding. IMPRESSION: 1. Stable hepatic lesions. The largest in the right lobe measures approximately 2 cm i n greatest diameter previously it measured just under 3 cm. No new hepatic lesions. 2. Numerous peritoneal implants. No significant change in size or number. TECHNICAL DOCUMENTATION: JOB ID: [id number] Quality ID # [id number]: Final reports with documentation of one or more dose reduction techniques (e.g., Au tomated exposure control, adjustment of the mA and/or kV according to patient size, use of iterative reconstruction technique) 2010 [employer]- All Rights Reserved Reading location - IP/workstation name: [email or web address]
== END ==
LOC: RAD 08:29
PROVIDERS: ATTEND Internal Medicine
DX: C49.A3 Gastrointestinal stromal tumor of small intestine (principal); R91.8 Other nonspecific abnormal finding of lung field
CPT/HCPCS: 71260; 74177; 82565

== ENCOUNTER 2019-10-15 11:27 | Observation (INO) | payer MEDICARE, BC ==
[2019-10-15 13:48] LABS: HEMATOCRIT 22.8 % (36.0-47.0); MEAN CORPUSCULAR HEMOGLOBIN 22.5 pg (27.0-33.4); MEAN CORPUSCULAR HGB CONC 32.8 g/dL (32.0-36.0); MEAN CORPUSCULAR VOLUME 69 fl (80-97); PLATELET COUNT 183 10^3/uL (150-450); RED BLOOD COUNT 3.32 10^6/uL (3.72-5.28); RED CELL DISTRIBUTION WIDTH 17.8 % (11.5-14.0); WHITE BLOOD COUNT 5.7 10^3/uL (4.0-10.5)
[2019-10-15 14:06] LABS: ABSOLUTE LYMPHOCYTES# (MANUAL) 1.3 10^3/uL (0.5-4.7); ABSOLUTE MONOCYTES # (MANUAL) 0.1 10^3/uL (0.1-1.4); BASOPHILS % (MANUAL) 1 % (0-2); EOSINOPHILS % (MANUAL) 2 % (0-6); LYMPHOCYTES % (MANUAL) 22 % (13-45); MONOCYTES % (MANUAL) 2 % (3-13); SEGMENTED NEUTROPHILS % (MAN) 73 % (42-78); TOTAL CELLS COUNTED 100
[2019-10-15 14:07] LABS: ALBUMIN 3.8 g/dL (3.5-5.0); ALKALINE PHOSPHATASE 65 U/L (38-126); ANION GAP 5 (5-19); ASPARTATE AMINO TRANSFERASE 24 U/L (14-36); BLOOD UREA NITROGEN 20 mg/dL (7-20); CALCIUM 9.6 mg/dL (8.4-10.2); CARBON DIOXIDE 20 mmol/L (22-30); CHLORIDE 113 mmol/L (98-107); GLUCOSE 93 mg/dL (75-110); POTASSIUM 4.7 mmol/L (3.6-5.0); TOTAL PROTEIN 6.1 g/dL (6.3-8.2)
[2019-10-15 14:09] LABS: ANISOCYTOSIS 1+; HYPOCHROMASIA 2+; OVALOCYTES 1+; POIKILOCYTOSIS 1+; POLYCHROMASIA 1+; SCHISTOCYTES SLIGHT; TARGET CELLS 2+; TEAR DROP CELLS 1+
[2019-10-15 14:10] LABS: PLATELET COMMENT ADEQUATE
[2019-10-15 14:12] LABS: HEMOGLOBIN 7.5 g/dL (12.0-15.5)
--- NOTE | 2019-10-15 20:47 | PDOC H&P ---
History of Present Illness Admission Date/PCP: 10/15/19 11:27 WILIAN REID MD History of Present Illness: SAHRA GOMEZ is a 79 year old female She was admitted for the management of severe anemia, she had blood work done few days ago, The hemogram demonstrated hemoglobin of 7.5, she has no active GI bleed, she has a history of gastrointestinal stromal tumor, malignant, she follows with oncology., The iron study was normal suggesting no iron deficiency.we will suggest chronic blood loss, there is no active GI bleed. Patient was initially admitted to be transfused and also evaluated for the anemia but there is no evidence of active GI bleed, no evidence of iron deficiency anemia, this could be related to the malignancy. She will be transfused with red blood cells and discharged home for further outpatient evaluation Past Medical History Cardiac Medical History: Reports: Hypertension Pulmonary Medical History: Reports: Chronic Obstructive Pulmonary Disease (COPD) Malignancy Medical History: Reports: Other - More intestinal stromal tumor, malignant Musculoskeltal Medical History: Reports: Arthritis Psychiatric Medical History: Reports: Depression Hematology: Reports: Anemia Past Surgical History Past Surgical History: Reports: Cholecystectomy, Hysterectomy, Other - Gastrointestinal tumor resections Social History Smoking Status: Never Smoker Electronic Cigarette use?: No Frequency of Alcohol Use: None Hx Recreational Drug Use: No Drugs: None Hx Prescription Drug Abuse: No Family History Family History: Reviewed & Not Pertinent Parental Family History Reviewed: Yes Children Family History Reviewed: Yes Sibling(s) Family History Reviewed.: Yes Medication/Allergy Home Medications: RX: Donepezil HCl [Aricept 5 mg Tablet] 5 mg PO QHS 01/09/19 Oxycodone HCl [Oxycontin Ir 5 Mg Tablet] 1 - 2 mg PO Q4H PRN #15 tablet 03/15/19 Sunitinib Malate [Sutent] 25 mg PO 03/15/19 Allergies/Adverse Reactions: Sulfa (Sulfonamide Antibiotics) Allergy (Verified 10/04/18 15:20) sulfamethoxazole [From Bactrim] Allergy (Unverified 10/15/19 11:56) trimethoprim [From Bactrim] Allergy (Unverified 10/15/19 11:56) Review of Systems Constitutional: ABSENT: chills, fever(s), headache(s), weight gain, weight loss Eyes: ABSENT: visual disturbances Ears: ABSENT: hearing changes Cardiovascular: ABSENT: chest pain, dyspnea on exertion, edema, orthropnea, palpitations Respiratory: ABSENT: cough, hemoptysis Gastrointestinal: ABSENT: abdominal pain, constipation, diarrhea, hematemesis, hematochezia, nausea, vomiting Genitourinary: ABSENT: dysuria, hematuria Musculoskeletal: ABSENT: joint swelling Integumentary: ABSENT: rash, wounds Neurological: ABSENT: abnormal gait, abnormal speech, confusion, dizziness, focal weakness, syncope Psychiatric: ABSENT: anxiety, depression, homidical ideation, suicidal ideation Endocrine: ABSENT: cold intolerance, heat intolerance, menstrual abnormalities, polydipsia, polyuria Hematologic/Lymphatic: ABSENT: easy bleeding, easy bruising, lymphadenopathy Physical Exam Vital Signs: Temp Pulse Resp BP Pulse Ox 98.5 F 76 18 161/62 H 100 10/15/19 20:18 10/15/19 20:18 10/15/19 20:18 10/15/19 20:18 10/15/19 20:18 Intake & Output 10/14/19 10/15/19 10/16/19 06:59 06:59 06:59 Intake Total 780 Balance 780 Weight 58.627 kg General appearance: PRESENT: no acute distress Head exam: PRESENT: atraumatic, normocephalic Eye exam: PRESENT: conjunctiva pale Ear exam: PRESENT: normal external ear exam Mouth exam: PRESENT: moist, tongue midline Neck exam: PRESENT: full ROM Respiratory exam: PRESENT: clear to auscultation keturah Cardiovascular exam: PRESENT: RRR, +S1, +S2 Pulses: PRESENT: normal dorsalis pedis pul, +2 pedal pulses bilateral Vascular exam: PRESENT: normal capillary refill GI/Abdominal exam: PRESENT: normal bowel sounds, soft Rectal exam: PRESENT: deferred Neurological exam: PRESENT: alert, CN II-XII grossly intact Psychiatric exam: PRESENT: appropriate affect, normal mood Skin exam: PRESENT: dry, intact, warm Results Laboratory Results: 10/15/19 13:35 10/15/19 13:35 10/15/19 10/15/19 10/15/19 13:35 13:35 13:35 WBC 5.7 RBC 3.32 L Hgb 7.5 L Hct 22.8 L MCV 69 L MCH 22.5 L MCHC 32.8 RDW 17.8 H Plt Count 183 Seg Neutrophils % Not Reportable Sodium 137.7 Potassium 4.7 Chloride 113 H Carbon Dioxide 20 L Anion Gap 5 BUN 20 Creatinine 1.16 Est GFR ( Amer) 55 L Glucose 93 Calcium 9.6 Iron 99.0 TIBC 256 % Saturation 39 Ferritin 278.00 H Total Bilirubin 1.0 AST 24 Alkaline Phosphatase 65 Total Protein 6.1 L Albumin 3.8 Blood Type O POSITIVE Antibody Screen POSITIVE Assessment & Plan - Diagnosis (1) Anemia Qualifiers: Anemia type: unspecified type Qualified Code(s): D64.9 - Anemia, unspecified Is this a current diagnosis for this admission?: Yes Plan: Patient admitted for blood transfusion (2) Gastrointestinal stromal tumor (GIST) Is this a current diagnosis for this admission?: Yes
[2019-10-15 23:05] LABS: HEMATOCRIT 28.1 % (36.0-47.0); HEMOGLOBIN 9.5 g/dL (12.0-15.5); MEAN CORPUSCULAR HEMOGLOBIN 24.8 pg (27.0-33.4); MEAN CORPUSCULAR HGB CONC 33.9 g/dL (32.0-36.0); PLATELET COUNT 148 10^3/uL (150-450); RED BLOOD COUNT 3.84 10^6/uL (3.72-5.28); RED CELL DISTRIBUTION WIDTH 23.3 % (11.5-14.0); WHITE BLOOD COUNT 8.5 10^3/uL (4.0-10.5)
[2019-10-15 23:24] LABS: ABSOLUTE LYMPHOCYTES# (MANUAL) 1.4 10^3/uL (0.5-4.7); ABSOLUTE MONOCYTES # (MANUAL) 0.8 10^3/uL (0.1-1.4); BAND NEUTROPHILS % (MANUAL) 1 % (3-5); BASOPHILS % (MANUAL) 0 % (0-2); EOSINOPHILS % (MANUAL) 0 % (0-6); LYMPHOCYTES % (MANUAL) 17 % (13-45); MONOCYTES % (MANUAL) 9 % (3-13); SEGMENTED NEUTROPHILS % (MAN) 73 % (42-78); TOTAL CELLS COUNTED 100
[2019-10-15 23:26] LABS: ANISOCYTOSIS 3+; POIKILOCYTOSIS SLIGHT; POLYCHROMASIA SLIGHT
[2019-10-15 23:27] LABS: MEAN CORPUSCULAR VOLUME 73 fl (80-97); OVALOCYTES SLIGHT; PLATELET COMMENT ADEQUATE; TARGET CELLS 1+
[2019-10-16 08:23] VITALS: BP 105/76
--- NOTE | 2019-10-16 08:50 | PDOC DISCHARGE SUMMARY ---
Impression - Admit/DC Date/PCP Admission Date/Primary Care Provider: 10/15/19 11:27 WILIAN REID MD Discharge Date: 10/16/19 - Discharge Diagnosis (1) Anemia Is this a current diagnosis for this admission?: Yes (2) Gastrointestinal stromal tumor (GIST) Is this a current diagnosis for this admission?: Yes - Additional Information Discharge Diet: As Tolerated Discharge Activity: Activity As Tolerated Referrals: WILIAN REID MD [Primary Care Provider] - 10/24/19 10:45 am Home Medications: RX: Donepezil HCl [Aricept 5 mg Tablet] 5 mg PO QHS 01/09/19 Oxycodone HCl [Oxycontin Ir 5 Mg Tablet] 1 - 2 mg PO Q4H PRN #15 tablet 03/15/19 Sunitinib Malate [Sutent] 25 mg PO 03/15/19 History of Present Illiness History of Present Illness: SAHRA GOMEZ is a 79 year old female She was admitted for the management of severe anemia, she had blood work done few days ago, The hemogram demonstrated hemoglobin of 7.5, she has no active GI bleed, she has a history of gastrointestinal stromal tumor, malignant, she follows with oncology., The iron study was normal suggesting no iron deficiency.we will suggest chronic blood loss, there is no active GI bleed. Patient was initially admitted to be transfused and also evaluated for the anemia but there is no evidence of active GI bleed, no evidence of iron deficiency anemia, this could be related to the malignancy. She will be transfused with red blood cells and discharged home for further outpatient evaluation Hospital Course Hospital Course: Patient was admitted for the management of severe anemia, she was transfused with 2 units of packed red blood cells, posttransfusion hemoglobin was 9.5. She was not actively bleeding Physical Exam Vital Signs: Temp Pulse Resp BP Pulse Ox 98.2 F 57 L 18 105/76 99 10/16/19 08:19 10/16/19 08:19 10/16/19 08:19 10/16/19 08:19 10/16/19 08:19 Intake & Output 10/15/19 10/16/19 10/17/19 06:59 06:59 06:59 Intake Total 1280 Balance 1280 Weight 58 kg General appearance: PRESENT: no acute distress Eye exam: PRESENT: PERRLA Respiratory exam: PRESENT: clear to auscultation keturah Cardiovascular exam: PRESENT: +S1, +S2 GI/Abdominal exam: PRESENT: soft Neurological exam: PRESENT: alert, CN II-XII grossly intact Results Laboratory Results: WBC 8.5 10^3/uL (4.0-10.5) 10/15/19 22:54 RBC 3.84 10^6/uL (3.72-5.28) 10/15/19 22:54 Hgb 9.5 g/dL (12.0-15.5) L 10/15/19 22:54 Hct 28.1 % (36.0-47.0) L 10/15/19 22:54 MCV 73 fl (80-97) L D 10/15/19 22:54 MCH 24.8 pg (27.0-33.4) L 10/15/19 22:54 MCHC 33.9 g/dL (32.0-36.0) 10/15/19 22:54 RDW 23.3 % (11.5-14.0) H 10/15/19 22:54 Plt Count 148 10^3/uL (150-450) L 10/15/19 22:54 Lymph % (Auto) Not Reportable 10/15/19 22:54 Jack % (Auto) Not Reportable 10/15/19 22:54 Eos % (Auto) Not Reportable 10/15/19 22:54 Baso % (Auto) Not Reportable 10/15/19 22:54 Absolute Neuts (auto) Not Reportable 10/15/19 22:54 Absolute Lymphs (auto) Not Reportable 10/15/19 22:54 Absolute Monos (auto) Not Reportable 10/15/19 22:54 Absolute Eos (auto) Not Reportable 10/15/19 22:54 Absolute Basos (auto) Not Reportable 10/15/19 22:54 Total Counted 100 10/15/19 22:54 Seg Neutrophils % Not Reportable 10/15/19 22:54 Seg Neuts % (Manual) 73 % (42-78) 10/15/19 22:54 Band Neutrophils % 1 % (3-5) L 10/15/19 22:54 Lymphocytes % (Manual) 17 % (13-45) 10/15/19 22:54 Monocytes % (Manual) 9 % (3-13) 10/15/19 22:54 Eosinophils % (Manual) 0 % (0-6) 10/15/19 22:54 Basophils % (Manual) 0 % (0-2) 10/15/19 22:54 Abs Neuts (Manual) 6.3 10^3/uL (1.7-8.2) 10/15/19 22:54 Abs Lymphs (Manual) 1.4 10^3/uL (0.5-4.7) 10/15/19 22:54 Abs Monocytes (Manual) 0.8 10^3/uL (0.1-1.4) 10/15/19 22:54 Absolute Eos (Manual) 0.0 10^3/uL (0.0-0.6) 10/15/19 22:54 Abs Basophils (Manual) 0.0 10^3/uL (0.0-0.2) 10/15/19 22:54 Platelet Comment ADEQUATE 10/15/19 22:54 Polychromasia SLIGHT 10/15/19 22:54 Hypochromasia 2+ 10/15/19 13:35 Poikilocytosis SLIGHT 10/15/19 22:54 Basophilic Stippling PRESENT 10/15/19 13:35 Anisocytosis 3+ 10/15/19 22:54 Microcytosis 1+ 10/15/19 22:54 Target Cells 1+ 10/15/19 22:54 Tear Drop Cells 1+ 10/15/19 13:35 Ovalocytes SLIGHT 10/15/19 22:54 Schistocytes SLIGHT 10/15/19 13:35 Sodium 137.7 mmol/L (137-145) 10/15/19 13:35 Potassium 4.7 mmol/L (3.6-5.0) 10/15/19 13:35 Chloride 113 mmol/L (98-107) H 10/15/19 13:35 Carbon Dioxide 20 mmol/L (22-30) L 10/15/19 13:35 Anion Gap 5 (5-19) 10/15/19 13:35 BUN 20 mg/dL (7-20) 10/15/19 13:35 Creatinine 1.16 mg/dL (0.52-1.25) 10/15/19 13:35 Est GFR ( Amer) 55 (>60) L 10/15/19 13:35 Est GFR (MDRD) Non-Af 45 (>60) L 10/15/19 13:35 Glucose 93 mg/dL (75-110) 10/15/19 13:35 Calcium 9.6 mg/dL (8.4-10.2) 10/15/19 13:35 Iron 99.0 ug/dL (37-170) 10/15/19 13:35 TIBC 256 ug/dL (250-450) 10/15/19 13:35 % Saturation 39 % 10/15/19 13:35 Ferritin 278.00 ng/mL (11.1-264.0) H 10/15/19 13:35 Total Bilirubin 1.0 mg/dL (0.2-1.3) 10/15/19 13:35 Direct Bilirubin 0.0 mg/dL (0.0-0.4) 10/15/19 13:35 Neonat Total Bilirubin Not Reportable 10/15/19 13:35 Neonat Direct Bilirubin Not Reportable 10/15/19 13:35 Neonat Indirect Bili Not Reportable 10/15/19 13:35 AST 24 U/L (14-36) 10/15/19 13:35 ALT 12 U/L (<35) 10/15/19 13:35 Alkaline Phosphatase 65 U/L (38-126) 10/15/19 13:35 Total Protein 6.1 g/dL (6.3-8.2) L 10/15/19 13:35 Albumin 3.8 g/dL (3.5-5.0) 10/15/19 13:35 Blood Type O POSITIVE 10/15/19 13:35 Antibody Screen POSITIVE 10/15/19 13:35 Antibody Identification Anti-E Anti-K 10/15/19 13:35 Antibody Identification Anti-E Anti-K 10/15/19 13:35 Crossmatch See Detail 10/15/19 13:35 Stroke Is this a Stroke Patient?: No Acute Heart Failure - Is this a Heart Failure Patient?: No
== END 2019-10-16 10:35 | disposition home or self-care (01) ==
LOC: 3W 11:27
PROVIDERS: ADMIT Internal Medicine; ATTEND Internal Medicine
DX: D64.9 Anemia, unspecified (principal); C49.A0 Gastrointestinal stromal tumor, unspecified site; Z79.899 Other long term (current) drug therapy; Z90.49 Acquired absence of other specified parts of digestive tract; Z90.710 Acquired absence of both cervix and uterus; Z98.890 Other specified postprocedural states
CPT/HCPCS: 86900; 86901; 36415; 36430; 86870; 86850; 86922; 82728; 83540; 83550; 85025; 80076; 80048; 86920; P9016; G0378; G0379